=== PATIENT | male | born 1965 | race Caucasian/White ===

== ENCOUNTER → 2021-08-04 14:48 | Outpatient (BNVA) | payer MEDICARE, MEDICAID, SELFPAY | PROVIDERS: PCP Internal Medicine; Visit Provider Hospitalist | DX: J18.9 Pneumonia, unspecified organism (principal); J45.40 Moderate persistent asthma, uncomplicated; J40 Bronchitis, not specified as acute or chronic; R91.8 Other nonspecific abnormal finding of lung field; Z88.0 Allergy status to penicillin; Z79.899 Other long term (current) drug therapy | CPT/HCPCS: 99202 ==

== ENCOUNTER 2021-08-05 09:50 | Outpatient (REF) | payer MEDICARE, MEDICAID, SELFPAY ==
--- NOTE | 2021-08-05 | PFT_ITS ---
Forced vital capacity 86%, FEV1 81%. FEF 25-75 is 63% and MVV 74%. Post bronchodilator therapy, there is no significant change. Total lung capacity 87%. Residual volume 86%. Diffusion capacity is 93%. CONCLUSION: A very mild degree of obstructive airway disorder involving small airways. No response to bronchodilator therapy. Clinical correlation is recommended. MD IZABELA Sanches/MODL / [id number]
[2021-08-05 10:41] LABS: Basophils Percent Auto 0.6 % (0-2); Eosinophils Absolute Auto 0.1 X10*3/uL (0.0-0.4); Eosinophils Percent Auto 2.1 % (0-4); Hematocrit 49.8 % (42.0-52.0); Hemoglobin 17.2 g/dl (14.0-18.0); Imm Gran Abs Auto 0.01 X10*3/uL (0.00-0.03); Imm Gran Pct Auto 0.2 % (0.0-0.4); Lymphocytes Absolute Auto 1.2 X10*3/uL (1.2-4.9); Lymphocytes Percent Auto 22.1 % (20-40); MANUAL DIFF FLAG NO; Mean Corpuscular HGB Conc 34.5 g/dl (31.0-36.0); Mean Corpuscular Hemoglobin 32.2 pg (27.0-33.0); Mean Corpuscular Volume 93.3 fL (80.0-98.0); Mean Platelet Volume 8.8 fL (9.4-12.4); Monocytes Absolute Auto 0.4 X10*3/uL (0.1-1.2); Monocytes Percent Auto 6.6 % (2-11); Neutrophils Absolute Auto 3.6 x10*3/uL (2.0-8.3); Neutrophils Percent Auto 68.4 % (45-73); Platelet Count 218 X10*3/uL (160-400); Red Blood Count 5.34 X10*6/uL (4.60-5.80); Red Cell Distribution Width 13.3 % (11.0-16.0); White Blood Count 5.3 X10*3/uL (4.8-10.8)
[2021-08-05 11:22] LABS: Erythrocyte Sedimentation Rate 2 MM/HR (0-15)
[2021-08-06 11:32] LABS: IgA 69 mg/dL (47-310); IgG 1046 mg/dL (600-1640); IgM 132 mg/dL (50-300)
[2021-08-06 12:31] LABS: Immunoglobulin G Subclass 1 738 mg/dL (382-929); Immunoglobulin G Subclass 2 163 mg/dL (241-700); Immunoglobulin G Subclass 3 4 mg/dL (22-178); Immunoglobulin G Subclass 4 9.1 mg/dL (4-86); Immunoglobulin G Total 1092 mg/dL (600-1640)
[2021-08-06 13:41] LABS: Anti Nuclear Antibody Screen NEGATIVE (NEGATIVE)
[2021-08-07 13:26] LABS: Myeloperoxidase Antibody <1.0 AI; Proteinase 3 PR3 Antibodies <1.0 AI
[2021-08-07 23:38] LABS: Cyclic Citrullinated Peptide <16 UNITS
[2021-08-09 14:52] LABS: Angiotensin Converting Enzyme 24 U/L (9-67)
[2021-08-10 14:46] LABS: Asperg fumigatus Precip Abs NEGATIVE (NEGATIVE); Micropoly faeni Abs NEGATIVE (NEGATIVE); Pigeon serum Abs NEGATIVE (NEGATIVE); Saccharo pora viridis Abs NEGATIVE (NEGATIVE); Thermo candidus Abs NEGATIVE (NEGATIVE); Thermoa vulgaris #1 NEGATIVE (NEGATIVE)
== END 2021-08-05 09:51 | disposition home or self-care (01) ==
LOC: HO.RESP 09:50
PROVIDERS: PCP Internal Medicine; Visit Provider Hospitalist
DX: J18.9 Pneumonia, unspecified organism (principal); R91.8 Other nonspecific abnormal finding of lung field; J45.909 Unspecified asthma, uncomplicated
CPT/HCPCS: 36415; 82164; 82784; 82785; 85025; 85652; 86003; 86021; 86038; 86039; 86200; 86331; 86606; 86609; 94060; 94727; 94729

== ENCOUNTER 2021-08-25 09:10 | Outpatient (REF) | payer MEDICARE, MEDICAID, SELFPAY ==
[2021-08-26 04:46] LABS: SARS COV2 IgG Negative (Negative)
== END 2021-08-25 09:11 | disposition home or self-care (01) ==
LOC: HO.LAB 09:10
PROVIDERS: PCP Internal Medicine; Visit Provider Hospitalist
DX: J18.9 Pneumonia, unspecified organism (principal); J40 Bronchitis, not specified as acute or chronic; R06.00 Dyspnea, unspecified; D80.8 Other immunodeficiencies with predominantly antibody defects; R91.8 Other nonspecific abnormal finding of lung field; Z20.822 Contact with and (suspected) exposure to COVID-19
CPT/HCPCS: 36415; 86317; 86769; 99212

== ENCOUNTER 2021-09-23 16:18 | Outpatient (REF) | payer MEDICARE, MEDICAID, SELFPAY ==
--- NOTE | ~2021-09-23 | CT_ITS ---
EXAMINATION: CT CHEST WITHOUT CONTRAST CLINICAL INFORMATION: Pneumonia, unspecified organism. COMPARISON: None TECHNIQUE: Multidetector volumetric CT imaging of the chest was done. Axial MIP volume rendering provided. Sagittal and coronal reformatted images were obtained. This CT examination was performed using dose optimization techniques as appropriate, variously including the following: *Automated exposure control *Adjustment of mA and/or kV according to patient size (this includes techniques or standardized protocols for targeted exams where dose is matched to indication/reason for exam; i.e. extremities or head) *Use of iterative reconstruction technique DLP: 243 mGy-cm FINDINGS: LUNGS/PLEURA/AIRWAYS: Scattered groundglass infiltrates with upper lobe predominance are seen with scattered nodules. House Wirer Helper nodules are as follows: Right apex, posterior: 0.4 cm, image 12, series 4 Left upper lobe, anterolateral: 0.5 cm, image 21, series 4 Left upper lobe, central: 0.5 cm, image 24, series 4 Right middle lobe, lateral: 0.4 cm, image 38, series 4 Left lower lobe, lateral, subpleural: 0.6 cm, image 43, series 4 Right lung base: 0.7 cm, image 41, series 4 MEDIASTINUM: The visualized thyroid gland is unremarkable. The thoracic aorta is unremarkable. No coronary artery calcifications. No pericardial effusion. No mediastinal or hilar lymphadenopathy. UPPER ABDOMEN: Unremarkable. MUSCULOSKELETAL: No suspicious abnormality. SOFT TISSUES: Unremarkable. CT/CT chest wo con IMPRESSION: Pulmonary nodules measuring up to 0.7 cm as well as infiltrates are nonspecific. This could represent an infectious/inflammatory process however malignancy/metastatic disease cannot be excluded. Clinical correlation is recommended. A contrast-enhanced CT scan of the abdomen and pelvis is recommended to assess for possible malignant source. Following Fleischner Society guidelines, a repeat CT chest is recommended in 6 months.
== END 2021-09-23 16:19 | disposition home or self-care (01) ==
LOC: HO.CT 16:18
PROVIDERS: Visit Provider Hospitalist
DX: J18.9 Pneumonia, unspecified organism (principal); R91.8 Other nonspecific abnormal finding of lung field
CPT/HCPCS: 71250

== ENCOUNTER → 2021-10-21 08:29 | Outpatient (BNVA) | payer MEDICARE, MEDICAID, SELFPAY | PROVIDERS: PCP Internal Medicine; Visit Provider Hospitalist | DX: J18.9 Pneumonia, unspecified organism (principal); J40 Bronchitis, not specified as acute or chronic; R91.8 Other nonspecific abnormal finding of lung field; J45.40 Moderate persistent asthma, uncomplicated; R06.00 Dyspnea, unspecified; D80.8 Other immunodeficiencies with predominantly antibody defects | CPT/HCPCS: 99212 ==

== ENCOUNTER 2021-12-30 09:03 | Outpatient (REF) | payer MEDICARE, MEDICAID, SELFPAY ==
--- NOTE | ~2021-12-30 | CT_ITS ---
EXAMINATION: CT CHEST WITHOUT CONTRAST CLINICAL INFORMATION: Pneumonia. COMPARISON: CT chest 09/23/2021 TECHNIQUE: Multidetector volumetric CT imaging of the chest was done. Axial MIP volume rendering provided. Sagittal and coronal reformatted images were obtained. This CT examination was performed using dose optimization techniques as appropriate, variously including the following: *Automated exposure control *Adjustment of mA and/or kV according to patient size (this includes techniques or standardized protocols for targeted exams where dose is matched to indication/reason for exam; i.e. extremities or head) *Use of iterative reconstruction technique DLP: 241 mGy-cm. FINDINGS: WEBSITE PROGRAMMER: Well-inflated lungs. LUNGS: There is diffuse upper lobe groundglass opacities similar to previous study. There are multiple pulmonary nodules ranging from 3 mm 7 mm. The largest nodule measures 7 mm right lower lobe adjacent to the diaphragm,, 7 mm right lower lobe adjacent to major fissure axial image 409/7, 7 mm nodule right middle lobe axial image 335/7. Several of the pulmonary nodules are more solid appearing in density than previous exam. There is a groundglass density involving and more obvious in the superior segments of both lower lobes. No acute consolidation seen. MEDIASTINUM: The thyroid lobes are symmetrical. The central trachea and the bronchi widely patent. Heart size and the great vessels are normal caliber. There is no pericardial effusion. Central trachea and the bronchi are widely patent. PLEURA: There is no pleural effusion. No pleural mass or thickening. AXILLA: There are small shotty lymph nodes in the axilla. The chest wall is unremarkable. UPPER ABDOMEN: Visualized liver, spleen, pancreas and bilateral adrenal glands are unremarkable. OSSEOUS STRUCTURES: No lytic or sclerotic process seen. CT/CT chest wo con IMPRESSION: Diffuse groundglass opacity both upper lobes and superior segments lower lobe. There are multiple bilateral pulmonary nodules in the range of 2 to 7 mm. The pulmonary nodules are more solid appearing and more denser than previous study. No abnormal mediastinal or hilar lymph nodes seen. Differential diagnosis includes inflammatory, infectious, allergic or autoimmune disorder. Metastatic disease is considered less likely unless there are 2 different etiologies for groundglass density and nodules. Fleischner guidelines were followed.
== END 2021-12-30 09:04 | disposition home or self-care (01) ==
LOC: HO.CT 09:03
PROVIDERS: Visit Provider Hospitalist
DX: J18.9 Pneumonia, unspecified organism (principal)
CPT/HCPCS: 71250

== ENCOUNTER → 2022-01-14 09:15 | Outpatient (BNVA) | payer MEDICARE, MEDICAID, SELFPAY | PROVIDERS: Visit Provider Internal Medicine Endocrinology, Diabetes & Metabolism | DX: E29.1 Testicular hypofunction (principal) | CPT/HCPCS: 99202 ==

== ENCOUNTER 2022-02-23 08:53 | Outpatient (REF) | payer MEDICARE, MEDICAID, SELFPAY ==
[2022-02-23 10:55] LABS: Cortisol Random 11.1 ug/dL
[2022-02-24 23:21] LABS: Follicle Stimulating Hormone 6.7 mIU/mL (1.6-8.0); Lutenizing Hormone 6.3 mIU/mL (1.5-9.3); Prolactin 4.8 ng/mL (2.0-18.0)
[2022-02-27 23:03] LABS: Testosterone, Free 24.9 pg/mL (35.0-155.0); Testosterone, Total 142 ng/dL (250-1100)
== END 2022-02-23 08:54 | disposition home or self-care (01) ==
LOC: HO.LAB 08:53
PROVIDERS: Visit Provider Internal Medicine Endocrinology, Diabetes & Metabolism
DX: J18.9 Pneumonia, unspecified organism (principal); R91.8 Other nonspecific abnormal finding of lung field; J45.40 Moderate persistent asthma, uncomplicated; J40 Bronchitis, not specified as acute or chronic; R06.00 Dyspnea, unspecified; D80.8 Other immunodeficiencies with predominantly antibody defects; E29.1 Testicular hypofunction
CPT/HCPCS: 36415; 82533; 83001; 83002; 84146; 84402; 84403; 99212

== ENCOUNTER 2022-03-24 16:42 | Outpatient (REF) | payer MEDICARE, MEDICAID, SELFPAY ==
[2022-03-24 18:22] LABS: Ferritin 183 ng/mL (20-250)
== END 2022-03-24 16:43 | disposition home or self-care (01) ==
LOC: HO.LAB 16:42
PROVIDERS: Visit Provider Internal Medicine Endocrinology, Diabetes & Metabolism
DX: E29.1 Testicular hypofunction (principal)
CPT/HCPCS: 36415; 82728

== ENCOUNTER 2022-03-25 17:14 | Outpatient (REF) | payer MEDICARE, MEDICAID, SELFPAY ==
--- NOTE | ~2022-03-25 | MR_ITS ---
EXAMINATION: MR BRAIN WITHOUT AND WITH CONTRAST CLINICAL INFORMATION: Testicular hypofunction. COMPARISON: None. TECHNIQUE: Multiplanar, multisequential imaging was obtained without and with intravenous administration of contrast. Intravenous contrast: Gadavist 5 mL. FINDINGS: No abnormal focus of decreased differential enhancement is seen within the pituitary gland. The infundibulum is to the left of midline. The cavernous sinuses opacify symmetrically. The internal carotid artery flow voids are maintained. No suprasellar soft tissue abnormality is seen. No diffusion abnormalities are identified to suggest an acute or subacute infarct. The ventricles are normal in size. No mass effect or midline shift is seen. No brain parenchymal signal abnormalities are seen. No extra-axial fluid collections are noted. The brainstem and cerebellum are normal. There is no abnormal parenchymal or leptomeningeal enhancement. The craniovertebral junction, marrow signal, and midline structures are normal. The mastoid air cells and paranasal sinuses are fairly well aerated. There are multiple submucosal retention cysts along the roof of the nasopharynx. MR/MR head/brain wo/w con IMPRESSION: No pituitary abnormality identified. Normal MRI of the brain.
== END 2022-03-25 17:15 | disposition home or self-care (01) ==
LOC: HO.MRI 17:14
PROVIDERS: Visit Provider Internal Medicine Endocrinology, Diabetes & Metabolism
DX: E29.1 Testicular hypofunction (principal)
CPT/HCPCS: 70553; A9585

== ENCOUNTER 2022-04-13 09:44 | Outpatient (REF) | payer MEDICARE, MEDICAID, SELFPAY ==
[2022-04-13 11:37] LABS: Prostate Specific Antigen 1.41 ng/mL (<0.05-4.0)
== END 2022-04-13 09:45 | disposition home or self-care (01) ==
LOC: HO.LAB 09:44
PROVIDERS: Visit Provider Internal Medicine Endocrinology, Diabetes & Metabolism
DX: Z12.5 Encounter for screening for malignant neoplasm of prostate (principal); E29.1 Testicular hypofunction
CPT/HCPCS: 36415; 84153; 99212

== ENCOUNTER → 2022-06-07 09:32 | Outpatient (BNVA) | payer MEDICARE, MEDICAID, SELFPAY | PROVIDERS: Visit Provider Hospitalist | DX: J18.9 Pneumonia, unspecified organism (principal); R91.8 Other nonspecific abnormal finding of lung field; R06.00 Dyspnea, unspecified; J45.40 Moderate persistent asthma, uncomplicated; J40 Bronchitis, not specified as acute or chronic; D80.8 Other immunodeficiencies with predominantly antibody defects; G47.33 Obstructive sleep apnea (adult) (pediatric) | CPT/HCPCS: 99212 ==

== ENCOUNTER → 2022-06-17 13:56 | Outpatient (REF) | payer MEDICARE, MEDICAID, SELFPAY | LOC: HO.SL 13:56 | PROVIDERS: Visit Provider Hospitalist | DX: G47.33 Obstructive sleep apnea (adult) (pediatric) (principal) | CPT/HCPCS: 95806 ==

== ENCOUNTER → 2022-07-07 09:14 | Outpatient (BNVA) | payer MEDICARE, MEDICAID, SELFPAY | PROVIDERS: Visit Provider Hospitalist | DX: R06.00 Dyspnea, unspecified (principal); J45.40 Moderate persistent asthma, uncomplicated; J18.9 Pneumonia, unspecified organism; G47.33 Obstructive sleep apnea (adult) (pediatric); R91.8 Other nonspecific abnormal finding of lung field; D80.8 Other immunodeficiencies with predominantly antibody defects | CPT/HCPCS: 99212 ==

== ENCOUNTER 2022-08-03 09:42 | Outpatient (REF) | payer MEDICARE, MEDICAID, SELFPAY ==
[2022-08-03 11:44] LABS: Hematocrit 46.1 % (42.0-52.0); Hemoglobin 16.3 g/dl (14.0-18.0)
[2022-08-03 12:55] LABS: Free T4 (Free Thyroxine) 0.78 ng/dL (0.71-1.85); Thyroid Stimulating Hormone 1.73 uIU/mL (0.32-4.0)
[2022-08-12 21:28] LABS: Testosterone, Free 165.7 pg/mL (35.0-155.0); Testosterone, Total 630 ng/dL (250-1100)
== END 2022-08-03 09:43 | disposition home or self-care (01) ==
LOC: HO.LAB 09:42
PROVIDERS: Visit Provider Internal Medicine Endocrinology, Diabetes & Metabolism
DX: E29.1 Testicular hypofunction (principal); R53.83 Other fatigue; R68.82 Decreased libido; Z79.899 Other long term (current) drug therapy
CPT/HCPCS: 36415; 84402; 84403; 84439; 84443; 85014; 85018; 99212

== ENCOUNTER 2022-08-23 09:34 | Outpatient (REF) | payer MEDICARE, MEDICAID, SELFPAY ==
[2022-08-28 15:38] LABS: Testosterone, Free 122.6 pg/mL (35.0-155.0); Testosterone, Total 524 ng/dL (250-1100)
[2022-08-29 18:04] LABS: IGF-1 (Somatomedin C) 173 ng/mL (50-317); IGF-1 Z Score (Male) 0.5 SD (-2.0 - +2.0)
== END 2022-08-23 09:35 | disposition home or self-care (01) ==
LOC: HO.LAB 09:34
PROVIDERS: Visit Provider Internal Medicine Endocrinology, Diabetes & Metabolism
DX: E29.1 Testicular hypofunction (principal)
CPT/HCPCS: 36415; 84305; 84402; 84403

== ENCOUNTER 2022-08-30 11:54 | Outpatient (REF) | payer MEDICARE, MEDICAID, SELFPAY ==
[2022-08-30 14:19] LABS: Creatinine, mg/dL 157.55
[2022-08-30 15:29] LABS: Creatinine, 24Hr Urine 2.4 G/Day (1.0-2.0); Total Volume 24 Hour Urine 1550 mL
[2022-09-07 17:39] LABS: Cortisol Free, 24 Hr Urine 31.5 mcg/24 h (4.0-50.0); Total Volume, 24 Hr Urine 1550 mL
== END 2022-08-30 11:55 | disposition home or self-care (01) ==
LOC: HO.LNP 11:54
PROVIDERS: Visit Provider Internal Medicine Endocrinology, Diabetes & Metabolism
DX: E29.1 Testicular hypofunction (principal)
CPT/HCPCS: 82530; 82570

== ENCOUNTER → 2022-10-12 08:57 | Outpatient (BNVA) | payer MEDICARE, MEDICAID, SELFPAY | PROVIDERS: PCP Internal Medicine; Visit Provider Nurse Practitioner Family | DX: Z01.811 Encounter for preprocedural respiratory examination (principal); J45.40 Moderate persistent asthma, uncomplicated; G47.33 Obstructive sleep apnea (adult) (pediatric) | CPT/HCPCS: 99212 ==

== ENCOUNTER 2022-11-18 15:38 | Outpatient (REF) | payer MEDICARE, MEDICAID, SELFPAY ==
--- NOTE | ~2022-11-18 | CT_ITS ---
EXAMINATION: CT CHEST WITHOUT CONTRAST CLINICAL INFORMATION: Pulmonary nodules COMPARISON: Previous chest CT scanner most recent December 2021 going back to June 2021 TECHNIQUE: Multidetector volumetric CT imaging of the chest was done. Axial MIP volume rendering provided. Sagittal and coronal reformatted images were obtained. This CT examination was performed using dose optimization techniques as appropriate, variously including the following: *Automated exposure control *Adjustment of mA and/or kV according to patient size (this includes techniques or standardized protocols for targeted exams where dose is matched to indication/reason for exam; i.e. extremities or head) *Use of iterative reconstruction technique DLP: 257 mGy-cm FINDINGS: LUNGS: There are numerous scattered areas of groundglass attenuation seen throughout the lungs with upper lung predominance. Some appear associated with more central solid nodules, largest solid nodules measuring 5 to 6 mm. This does not appear appreciably changed from December 2021 exam. There are several separate pulmonary nodules that do not appear appreciably changed. Largest separate pulmonary nodules measure 5 mm in the right middle lobe axial image 346 series 5 and 6 mm in the left lower lobe axial image 405 series 5. These are unchanged. MEDIASTINUM: The visualized thyroid gland is normal. There is shotty mediastinal lymphadenopathy that appears unchanged. No enlarged lymph nodes. Normal heart size. No pericardial effusion. CORONARY ARTERY CALCIFICATION: None visualized on this study. PLEURA: There is no pleural effusion. No pleural mass or thickening. AXILLA: No lymphadenopathy. UPPER ABDOMEN: The spleen is not completely imaged but appears prominent. OSSEOUS STRUCTURES: Degenerative changes of the spine. CT/CT chest wo IV con IMPRESSION: Stable patchy areas of groundglass attenuation and nodules compared to previous exams going back as far as June 2021. Infectious or inflammatory process is favored. Fleischner guidelines were followed.
== END 2022-11-18 15:39 | disposition home or self-care (01) ==
LOC: HO.CT 15:38
PROVIDERS: PCP Internal Medicine; Visit Provider Hospitalist
DX: R91.8 Other nonspecific abnormal finding of lung field (principal)
CPT/HCPCS: 71250

== ENCOUNTER → 2022-12-03 08:44 | Outpatient (BNVA) | payer MEDICARE, MEDICAID, SELFPAY | PROVIDERS: PCP Internal Medicine; Visit Provider Internal Medicine Endocrinology, Diabetes & Metabolism | DX: E29.1 Testicular hypofunction (principal) | CPT/HCPCS: 99212 ==

== ENCOUNTER 2022-12-15 08:26 | Outpatient (AMB) | payer MEDICARE, MEDICAID, SELFPAY ==
--- NOTE | 2022-12-15 08:28 | A.OFFVIS_ITS ---
Intake VS Expanded 12/15/22 08:30 12/27/22 21:28 Height 6 ft 6 ft Weight 273 lb 2.444 oz 273 lb BMI 37.0 37.0 Intake Visit Reasons: Obesity Allergies Penicillins Allergy (Severe, Verified 12/03/22 08:48) Itching HPI Nutrition Presentation Details Pt presents for MNT for obesity. The Pt was referred by Ramos Ortiz NP from Pulmonology dept. Pt reports he has tried various weight loss diets in the past with success , currently having challenges with consistent diet modifications. food frequency questionnaire noon: salad with tuna and light dressing dinner: protein (chicken/poultry), pasta/potato/pasta /vegetables or salad , water bedtime fruits 7-9 pm apple/fruits muscle milk Pt reports taking a complex vitamin b12 physical activity: daily life activity (elliptical 20-25 min 3 -4 times/wk ) ETOH; denies Smoking : denies eating out : 2-3 x/wk fried foods : 2-3 x/wk MQL-Htaufgi-Nf.Jeor Equation Height 6 ft Weight 273 lb Resting Metabolic Rate 2109.55 Calculated Activity Level Sedentary Calories Needed to Maintain Weight 2531.46 Diagnosis Nutrition problem #1 excessive energy intake As related to (etiology) #1 diagnosis As evidenced by (sign/symptom) #1 high BMI (37.0 on 12/15/22) Monitoring/Goals Nutrition problem monitoring weight Nutrition goal/outcome wt loss 5lbs in 2 months Learning/Education Readiness to learn fair Stages of change pre-contemplation Educational materials provided Yes (meal planning) Most Recent Diabetes Results: No Data to Display [facility] Medical History (Updated 12/03/22 @ 13:22 by Michael Mix MD) Asthma Bronchitis Dyspnea Hypogonadism in male Hypogonadism in male Obesity JEANETTE (obstructive sleep apnea) Pneumonitis Pulmonary nodules 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 Surgical History History of knee replacement History of rotator cuff surgery History of surgery History of tracheostomy Family History Mother No known health problems Father High blood pressure AD (Alzheimer's disease) Social History Alcohol intake: never Patient Tobacco Use Status: Never used Tobacco Assessment & Plan Assessment & Plan (1) Obesity, Class II, BMI 35-39.9: Code(s): E66.9 - Obesity, unspecified Plan: used wt: 124 kg Est kcal needs as per MSJ: 2500 (40% carb, 30% protein/fat) Est fluid needs as per 25-30 ml/d: 3100 Est prot per day as per 1 g/kg bw: 124 Recommend fiber intake : 8-10 g per day and gradually increase to 25-28 g per day for women and 35-38 g for men or as tolerated Recommend sodium intake per day : less than 2000 mg Educated patient on: ( R = reviewed V = verbalizes understanding N/R = needs review N/A = not applicable * Food sources of carbohydrate, adequate serving sizes and its role in various health conditions: R * Differences between complex carbohydrates a simple carbohydrates, role of fiber in diet: R * Differences between types of fats and role in diet (mono on saturated fat fatty acids, saturated fatty acids, trans fats): R basic low fat concepts * Food sources of sodium in salt and healthy modifications for heart health in kidney health: NR * Healthy plate method concept: R * Physical activity: Benefits a precaution: R V * mindful eating strategies : R Medications: Discontinued testosterone cypionate Discontinued Reason: Doctor's Order 100 mg (0.5 mL) IM QWEEK 10 mL 4RF Patient Instructions: Work on reducing fat intake by reducing frequency of fried food intake practice mindful eating Coding Level of Care Code Nutr Indiv Intake (10910) Diagnoses Obesity, Class II, BMI 35-39.9 E66.9 Time Spent (min) 30
[2022-12-15 08:30] VITALS: BMI 37.0
[2022-12-27 21:28] VITALS: BMI 37.0
== END 2022-12-15 09:30 | disposition home or self-care (01) ==
PROVIDERS: PCP Internal Medicine; Referring Provider Internal Medicine Endocrinology, Diabetes & Metabolism; Visit Provider Dietitian, Registered
DX: E66.9 Obesity, unspecified (principal)

== ENCOUNTER → 2022-12-15 08:26 | Outpatient (BNVA) | payer MEDICARE, MEDICAID, SELFPAY | PROVIDERS: Visit Provider Dietitian, Registered | DX: E66.9 Obesity, unspecified (principal); Z68.37 Body mass index [BMI] 37.0-37.9, adult | CPT/HCPCS: 97802 ==

== ENCOUNTER 2023-01-05 08:50 | Outpatient (REF) | payer MEDICARE, MEDICAID, SELFPAY ==
[2023-01-05 09:59] LABS: MANUAL DIFF FLAG NO
[2023-01-05 10:47] LABS: Basophils Percent Auto 0.8 % (0-2); Eosinophils Absolute Auto 0.1 X10*3/uL (0.0-0.4); Hematocrit 49.4 % (42.0-52.0); Hemoglobin 16.7 g/dl (14.0-18.0); Imm Gran Abs Auto 0.01 X10*3/uL (0.00-0.03); Imm Gran Pct Auto 0.2 % (0.0-0.4); Lymphocytes Absolute Auto 1.2 X10*3/uL (1.2-4.9); Lymphocytes Percent Auto 24.5 % (20-40); Mean Corpuscular HGB Conc 33.8 g/dl (31.0-36.0); Mean Corpuscular Hemoglobin 32.4 pg (27.0-33.0); Mean Corpuscular Volume 95.9 fL (80.0-98.0); Mean Platelet Volume 9.3 fL (9.4-12.4); Monocytes Absolute Auto 0.4 X10*3/uL (0.1-1.2); Monocytes Percent Auto 7.8 % (2-11); Neutrophils Absolute Auto 3.2 x10*3/uL (2.0-8.3); Neutrophils Percent Auto 64.7 % (45-73); Platelet Count 221 X10*3/uL (160-400); Red Blood Count 5.15 X10*6/uL (4.60-5.80); Red Cell Distribution Width 13.8 % (11.0-16.0); White Blood Count 4.9 X10*3/uL (4.8-10.8)
[2023-01-05 11:32] LABS: Erythrocyte Sedimentation Rate 4 MM/HR (0-15)
[2023-01-11 10:48] LABS: Angiotensin Converting Enzyme 24.7 U/L (9-67)
[2023-01-20 17:29] LABS: Asperg fumigatus Precip Abs NEGATIVE (NEGATIVE); Micropoly faeni Abs NEGATIVE (NEGATIVE); Pigeon serum Abs NEGATIVE (NEGATIVE); Saccharo pora viridis Abs NEGATIVE (NEGATIVE); Thermo candidus Abs NEGATIVE (NEGATIVE); Thermoa vulgaris #1 NEGATIVE (NEGATIVE)
== END 2023-01-05 08:51 | disposition home or self-care (01) ==
LOC: HO.LAB 08:50
PROVIDERS: PCP Internal Medicine; Visit Provider Hospitalist
DX: J18.9 Pneumonia, unspecified organism (principal); R91.8 Other nonspecific abnormal finding of lung field; G47.33 Obstructive sleep apnea (adult) (pediatric); J31.0 Chronic rhinitis; J45.40 Moderate persistent asthma, uncomplicated; D80.8 Other immunodeficiencies with predominantly antibody defects; Z23 Encounter for immunization; Z79.899 Other long term (current) drug therapy
CPT/HCPCS: 36415; 82164; 85025; 85652; 86331; 86606; 86609; 90471; 90677; 99212

== ENCOUNTER 2023-01-05 08:50 | Outpatient (AMB) | payer MEDICARE, MEDICAID, SELFPAY ==
[2023-01-05 09:04] VITALS: PULSE 74; O2SAT 97; BMI 34.6
--- NOTE | 2023-01-05 09:04 | MHC.OFFVIS ---
Intake Vital Signs 01/05/23 09:04 Height 6 ft Weight 255 lb BMI 34.6 Pulse 74 Pulse Source Pulse Oximeter Pulse Oximetry (%) 97 Oxygen Delivery Method Room Air Intake Visit Reasons: Dyspnea Manual Writer Required: No Allergies Penicillins Allergy (Severe, Verified 01/05/23 09:05) Itching HPI HPI Comments History of Present Illness Details The patient is a 57-year-old gentleman with a known history of asthma in addition to severe allergies. Apparently the patient when he was 8 years old was [place] the [place] and developed angioedema and respiratory distress requiring tracheostomy. Subsequently after that he did follow closely with Allergy and immunology. Patient also had a close relationship with primary care doctor. Patient did have recurrent infections and pneumonias which required usually antibiotics and prednisone. The patient also has severe back issues back disease and has needed cortisol shots. 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 Currently he is getting hormonal therapy. He is currently working with Endocrinology at this time. More recently during the winter just before the patient started getting sick again. The patient was given a brief course of antibiotics without any significant improvement. Apparently at that time he did have a chest x-ray that was considered abnormal per the patient although I do not have that report. He subsequently followed up with another x-ray again abnormal. More recent the patient did undergo a CT scan of the chest in June 2021. He did bring a copy of that and I was able to review of myself and also reviewed with the patient. The CT scan is very revealing. He has significant amount of areas of ground-glass opacities bilaterally predominantly in the upper lung zones associated with pulmonary nodules which appear to be to some degree calcified and also associated with the central part of the ground-glass densities. The patient also has pulmonary nodules in a perilymphatic distribution bringing up the question of inflammatory conditions such as sarcoidosis. The nodules are intermediate size and they are bilaterally. 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 But, after his back injuries he has not been able to work for many years. He denies exposure to any birds or any farm so. Denies any exposure to any mold. The patient is a lifelong nonsmoker. The patient has been using short-acting beta agonists was partial improvement of symptoms. He does feel this burning sensation when he breathes in and is very uncomfortable. The patient is also having issues with his adrenal axis. Since he has been on prednisone his workup has been placed on hold. Therefore, I will also try to hold off on any cortical steroids to prevent any further follow-up or workup for his endocrinology issues. at this point I do not see that that to conditions are associated. 08/25/2021 the patient is here for a pulmonary follow-up visit. Overall he is feeling better on the Wixela. He has not required any prednisone. He did start some by oxygen had in his house for sinusitis symptoms. He still complaining of burning sensation in the chest area and also gets a burning sensation in the sinus areas as well. He does not believe that this is reflux related. We did review all the blood work that we did. On ruled out any vasculitis or connective tissue conditions. The only significant finding was that he is allergic to cats and dogs. He currently has a cat in the house. His allergies to cat is moderate to severe. In addition to that the patient did have a low IgG subclass 2 and 3. The total level was normal but this brings up the possibility of a specific immunodeficiency syndrome. Therefore, we will check his pneumococcal 23 Valiant titers in addition to also checking his SARS-CoV-2 antibodies to see if he was exposed to COVID-19. He is concerned that the findings on the CT scan was related to potential COVID 19 although his PCR testing was negative he does believe that there is a high risk for this. Therefore will check his antibodies at this time. In the meantime in view of the patient's sinus issues and immunodeficiency issues it will be reasonable to treat the patient with azithromycin 3 times a week for prophylactic antibiotics and also to help him as an anti-inflammatory. Will try this for now as we will repeat his CT scan in 2 months to see if there is improvement of the ground-glass opacities. If the symptoms do not improve and/or the CT scan does not improve then will consider undergoing a diagnostic intervention such as bronchoscopy or biopsy. The patient also will keep the CT away from his bedroom will uses allergy medication. we also reviewed his pulmonary function studies which is reassuring. No obstructive nor restrictive ventilatory defects and his diffusing capacity was within normal limits. Although the patient does have evidence of small airways disease consistent with the diagnosis of asthma at this time. 10/21/2021 the patient is here for a pulmonary follow-up visit. Overall the patient has been feeling much better. His chest tightness wheezing coughing has been improving. He continues uses Wixela. Wixela appears to be helping. However, sometimes he gets any irritation to the tongue and needs to stop it. Explained to him is likely the powder component. I will switch him over to inhaler such as Symbicort that he can use with a spacer to better effectively administer the medication to the lungs and minimize upper respiratory adverse effects. In the meantime we did review his CT scan of the chest. I personally reviewed with him. The patient still has areas of ground-glass opacities and nodular densities as well as some lymphadenopathy. The distribution still is consistent more with a hypersensitivity pneumonitis versus sarcoidosis. At in to review the older films. But, he continues to be interval improvement in the ground-glass opacities it is not as dense. Therefore I will try to compare this most recent CT scan to his previous to make sure that there is indeed improvement. With suspicion that there is improvement will follow-up with a CT scan in 3-4 months. However, if the CT scan does not show any significant improvement then I will talk to her about considering a diagnostic interventions such as biopsy. Currently the patient does feel better and for that reason will continue following. His hypersensitivity panel was indeed negative for any evidence of any sensitivities although is a very limited study. The process of bilateral and is not consistent with a malignant process more consistent with an inflammatory process. 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 The patient also pains. 02/23/2022 the patient is here for a pulmonary follow-up visit. He complains of increased chest tightness and burning sensation. These the symptoms he had initially when he was found to have the areas of pneumonitis and pulmonary nodules. He also has been working with the sap ppm consultant regarding his so sometimes systems tremors no the bothers him hypogonadism. The patient did have a repeat CT scan of the chest with personally viewed in the office with him. The ground-glass areas appeared to be about the same although the pulmonary nodule components appear to be more solid more significant. At this point explained to the patient that he has we tried multiple inhalers and medications. The patient really needs to have a biopsy done to further delineate this process. We talked about surgical biopsies being the best high yield way to go about it. However he is concerned about having surgery. He is willing to do a bronchoscopy. He understands that the yield is not going to be 100%. Although we can not rule out infectious processes also do some transbronchial biopsies to try 06/07/2022 the patient is here for a pulmonary follow-up visit. He feels very tired lately. He has significant daytime drowsiness specially since he came off the testosterone. His [place] score is elevated 12/24. The patient does have snoring. The patient will need a sleep study at this time. Will set him up with a home sleep study. In the meantime will going to requested urgently in order for him to be potentially placed back on his testosterone therapy that he has been on for many years. The patient ultimately opted not having a diagnostic biopsy for his abnormal findings in the CT scan. The patient did have a CT scan back over the summer demonstrating persistent ground-glass opacities with some nodular component. Appears to be upper lung zone predominant it is suggestive of a hypersensitivity reaction. No significant scarring that I could appreciate. The last couple days the patient started developing worsening chest tightness and coughing. He is using his inhalers. The patient will benefit from a prednisone taper this time. Although will put him on a lower dose for longer duration. Will follow-up in a few weeks after his sleep study. 07/07/2022 the patient is here for a pulmonary follow-up visit. The patient overall is doing well. Continues to have some daytime drowsiness his [place] score is elevated it over 24. He did have a home sleep study was which is reassuring with about 4.9 episodes now which is considered normal. The patient understands that when he lays on his back is usually worse. If he lays on his side he does much better. He has a hard time lying on his back anyway because of his back discomfort. The patient does not qualify for CPAP at this time. He did start the testosterone therapy which is very happy about. He still continues to have significant nasal congestion postnasal drip. 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 He has been taking Afrin since he was a teenager. He uses it between 2 to 3 times a day. He understands that with super imposed congestion when he is not using it it is hard to provide any therapy for. He needs to ultimately stop the Afrin and work with the adverse effects. Will go ahead and place him on Flonase and also ipratropium to try to help minimize his sat side effects from the Afrin at this point. He is also taking [id number] Sudafed which will help as well. From a respiratory status the patient is doing well. He does have a cough but is mainly from postnasal drip. He does have the nodular densities in the ground-glass opacities which we talked about before. He was reluctant to have any surgical biopsies or bronchoscopic biopsies so therefore which is monitoring closely. His next CT scans cleaning 6 months with follow-up. 01/05/2023 the patient is here for pulmonary follow-up visit. Overall his breathing is much better. He has been using the Symbicort. The patient feels like he is less short of breath. Less coughing. He did have a CT scan of the chest in October which we reviewed. It appears that he still has a ground-glass opacities primarily in the upper lung distribution. Also has pulmonary nodules. Again we talked about the differential being inflammatory process. Overlying recheck his hypersensitivity panel and his Charlie level. The patient does not want to undergo a biopsy although is the only way knowing exactly with this processes. He is not on any prednisone although he is on the inhaled steroid. He is going to continue for now. Will go ahead and repeat the CT scan in a year's time. If the patient has any worsening symptoms he is to call the office because we can not consider biopsy or reimaging at that point. 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 Surgical History History of knee replacement History of rotator cuff surgery History of surgery History of tracheostomy Family History Mother No known health problems Father High blood pressure AD (Alzheimer's disease) Social History Alcohol intake: never Patient Tobacco Use Status: Never used Tobacco Review of Systems Const Reports fatigue and Reports weight gain Eyes Denies change in vision ENT Denies change in voice, Reports nasal congestion, Reports nasal discharge and Reports post nasal drip Card Denies chest pain and Reports dyspnea on exertion Resp Denies chest congestion, Reports cough, Reports dyspnea on exertion and Reports wheezing GI Denies nausea and Denies vomiting Musc Reports back pain Skin/Breast Denies rash Neuro Reports radicular pain and Reports paresthesias Endo Reports fatigue Rosalio/Lymph Denies easy bleeding, Denies easy bruising and Denies lymphadenopathy Aller/Immun Reports wheezing Physical Exam Vital Signs: Last Vital Signs Pulse 74 01/05/23 09:04 Pulse Ox 97 01/05/23 09:04 Oxygen Delivery Method Room Air 01/05/23 09:04 BMI result Body Mass Index 34.6 Const General: alert Neck Neck: Yes normal visual inspection, Yes full ROM and Yes no lymphadenopathy Chest Chest palpation & inspection: normal inspection of the chest Resp Auscultation: no wheezes and diminished lung sounds Cardio Rate: regular rate Rhythm: regular rhythm Heart sounds: S1 normal heart sound present and S2 normal heart sound present GI Palpation (GI): Soft to palpation and nontender Auscultation: normal bowel sounds Skin General skin exam: rashes and/or lesions noted Extrem General: Yes no clubbing, cyanosis or edema Immunizations pneumoc 20-miguel conj-dip cr(PF) Performing Provider: Jm Collins MD Administered by: Rosalind Westfall LPN on 01/05/23 09:37 Dose Route Admin Location Lot Number Expiration Date NDC Clinical Research Physician 0.5 mL IM Left Deltoid [id number] 03/29/24 [id number] [email or web address] VIS Given Date VIS Provided VIS Publication Date 01/05/23 Single Vaccine 22 Eligibility Eligibility Date Funding Source Not VFC Eligible 01/05/23 Private Results Reviewed Results Reviewed: [address] [address] [address] Scan Report Signed Patient: John Scott MR#: [id number] : 1965 Acct:[id number] Age/Sex: 57 / M ADM Date: 11/18/22 Loc: [facility].CT Attending Dr: Jm Collins MD Ordering Physician: Jm Collins MD Date of Service: 11/18/22 Procedure(s): CT chest wo IV con Accession Number(s): [id number] cc: Jm Collins MD~ EXAMINATION: CT CHEST WITHOUT CONTRAST CLINICAL INFORMATION: Pulmonary nodules? COMPARISON: Previous chest CT scanner most recent December 2021 going back to June 2021 TECHNIQUE: Multidetector volumetric CT imaging of the chest was done. Axial MIP volume rendering provided. Sagittal and coronal reformatted images were obtained.? This CT examination was performed using dose optimization techniques as appropriate, variously including the following: *Automated exposure control *Adjustment of mA and/or kV according to patient size (this includes techniques or standardized protocols for targeted exams where dose is matched to indication/reason for exam; i.e. extremities or head) *Use of iterative reconstruction technique DLP: 257 mGy-cm FINDINGS: LUNGS: There are numerous scattered areas of groundglass attenuation seen throughout the lungs with upper lung predominance. Some appear associated with more central solid nodules, largest solid nodules measuring 5 to 6 mm. This does not appear appreciably changed from December 2021 exam. There are several separate pulmonary nodules that do not appear appreciably changed. Largest separate pulmonary nodules measure 5 mm in the right middle lobe axial image 346 series 5 and 6 mm in the left lower lobe axial image 405 series 5. These are unchanged.? MEDIASTINUM: The visualized thyroid gland is normal. There is shotty mediastinal lymphadenopathy that appears unchanged. No enlarged lymph nodes. Normal heart size. No pericardial effusion. CORONARY ARTERY CALCIFICATION: None visualized on this study. PLEURA: There is no pleural effusion. No pleural mass or thickening.? AXILLA: No lymphadenopathy.? UPPER ABDOMEN: The spleen is not completely imaged but appears prominent.? OSSEOUS STRUCTURES: Degenerative changes of the spine.? CT/CT chest wo IV con IMPRESSION: Stable patchy areas of groundglass attenuation and nodules compared to previous exams going back as far as June 2021. Infectious or inflammatory process is favored. ? Fleischner guidelines were followed. Dictated By: Rosina Orr MD Signed By: <Electronically signed by Rosina Orr MD in OV> 11/24/22 1551 DD/ 1558 TD/TT:? Clinical Nursing Assistant: DONNY Assessment & Plan Assessment & Plan (1) Pneumonitis: Comment: very suspicious for hypersensitive pneumonitis versus sarcoidosis. It is upper lung zone predominance associated with nodular densities in a bronchovascular distribution. His ANCA studies were negative for any vasculitides. 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: Code(s): D80.8 - Other immunodeficiencies with predominantly antibody defects (6) JEANETTE (obstructive sleep apnea): Comment: minimal AHI on home sleep study Code(s): G47.33 - Obstructive sleep apnea (adult) (pediatric) Plan positional therapy for sleep ipratropium nasal spray fluticasone nasal spray No Afrin continue Symbicort KAUSHAL as needed CT chest in 12 months Bloodwork F/U 6 months Orders: Orders Angiotensin Converting Enzyme Today J18.9 - Pneumonia, unspecified organism Complete Blood Count Auto Diff Today J18.9 - Pneumonia, unspecified organism Erythrocyte Sedimentation Rate Today J18.9 - Pneumonia, unspecified organism Hypersensitive Pneumonitis Prf Today J18.9 - Pneumonia, unspecified organism, R91.8 - Other nonspecific abnormal finding of lung field Pneumococcal 20 Immunization Today Z23 - Encounter for immunization Coding Level of Care Code Est Pt Level 4 (39127) Diagnoses Pneumonitis J18.9 Pulmonary nodules R91.8 Asthma J45.40 Asthma complication type: uncomplicated Asthma persistence: persistent Asthma severity: moderate Dyspnea R06.00 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
== END 2023-01-05 09:34 | disposition home or self-care (01) ==
PROVIDERS: PCP Internal Medicine; Visit Provider Hospitalist
DX: J18.9 Pneumonia, unspecified organism (principal); R91.8 Other nonspecific abnormal finding of lung field; J45.40 Moderate persistent asthma, uncomplicated; R06.00 Dyspnea, unspecified; D80.8 Other immunodeficiencies with predominantly antibody defects; G47.33 Obstructive sleep apnea (adult) (pediatric)
CPT/HCPCS: 99214

== ENCOUNTER 2023-02-11 10:12 | Outpatient (AMB) | payer MEDICARE, MEDICAID, SELFPAY ==
--- NOTE | 2023-02-11 10:14 | MHC.OFFVIS ---
Intake Vital Signs 02/11/23 10:16 Height 6 ft Weight 250 lb BMI 33.9 BP 118/60 Blood Pressure Location Lt brachial Position Sitting Pulse 83 Pulse Source Pulse Oximeter Pulse Oximetry (%) 97 Oxygen Delivery Method Room Air Intake Visit Reasons: chest congestion Celery Tier Required: No Allergies Penicillins Allergy (Severe, Verified 02/11/23 10:18) Itching HPI HPI Comments History of Present Illness Details The patient is a 57-year-old gentleman with a known history of asthma in addition to severe allergies. Apparently the patient when he was 8 years old was at the zoo and developed angioedema and respiratory distress requiring tracheostomy. Subsequently after that he did follow closely with Allergy and immunology. Patient also had a close relationship with primary care doctor. Patient did have recurrent infections and pneumonias which required usually antibiotics and prednisone. The patient also has severe back issues back disease and has needed cortisol shots. 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 Currently he is getting hormonal therapy. He is currently working with Endocrinology at this time. More recently during the winter just before the patient started getting sick again. The patient was given a brief course of antibiotics without any significant improvement. Apparently at that time he did have a chest x-ray that was considered abnormal per the patient although I do not have that report. He subsequently followed up with another x-ray again abnormal. More recent the patient did undergo a CT scan of the chest in June 2021. He did bring a copy of that and I was able to review of myself and also reviewed with the patient. The CT scan is very revealing. He has significant amount of areas of ground-glass opacities bilaterally predominantly in the upper lung zones associated with pulmonary nodules which appear to be to some degree calcified and also associated with the central part of the ground-glass densities. The patient also has pulmonary nodules in a perilymphatic distribution bringing up the question of inflammatory conditions such as sarcoidosis. The nodules are intermediate size and they are bilaterally. 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 But, after his back injuries he has not been able to work for many years. He denies exposure to any birds or any farm so. Denies any exposure to any mold. The patient is a lifelong nonsmoker. The patient has been using short-acting beta agonists was partial improvement of symptoms. He does feel this burning sensation when he breathes in and is very uncomfortable. The patient is also having issues with his adrenal axis. Since he has been on prednisone his workup has been placed on hold. Therefore, I will also try to hold off on any cortical steroids to prevent any further follow-up or workup for his endocrinology issues. at this point I do not see that that to conditions are associated. 08/25/2021 the patient is here for a pulmonary follow-up visit. Overall he is feeling better on the Wixela. He has not required any prednisone. He did start some by oxygen had in his house for sinusitis symptoms. He still complaining of burning sensation in the chest area and also gets a burning sensation in the sinus areas as well. He does not believe that this is reflux related. We did review all the blood work that we did. On ruled out any vasculitis or connective tissue conditions. The only significant finding was that he is allergic to cats and dogs. He currently has a cat in the house. His allergies to cat is moderate to severe. In addition to that the patient did have a low IgG subclass 2 and 3. The total level was normal but this brings up the possibility of a specific immunodeficiency syndrome. Therefore, we will check his pneumococcal 23 Valiant titers in addition to also checking his SARS-CoV-2 antibodies to see if he was exposed to COVID-19. He is concerned that the findings on the CT scan was related to potential COVID 19 although his PCR testing was negative he does believe that there is a high risk for this. Therefore will check his antibodies at this time. In the meantime in view of the patient's sinus issues and immunodeficiency issues it will be reasonable to treat the patient with azithromycin 3 times a week for prophylactic antibiotics and also to help him as an anti-inflammatory. Will try this for now as we will repeat his CT scan in 2 months to see if there is improvement of the ground-glass opacities. If the symptoms do not improve and/or the CT scan does not improve then will consider undergoing a diagnostic intervention such as bronchoscopy or biopsy. The patient also will keep the CT away from his bedroom will uses allergy medication. we also reviewed his pulmonary function studies which is reassuring. No obstructive nor restrictive ventilatory defects and his diffusing capacity was within normal limits. Although the patient does have evidence of small airways disease consistent with the diagnosis of asthma at this time. 10/21/2021 the patient is here for a pulmonary follow-up visit. Overall the patient has been feeling much better. His chest tightness wheezing coughing has been improving. He continues uses Wixela. Wixela appears to be helping. However, sometimes he gets any irritation to the tongue and needs to stop it. Explained to him is likely the powder component. I will switch him over to inhaler such as Symbicort that he can use with a spacer to better effectively administer the medication to the lungs and minimize upper respiratory adverse effects. In the meantime we did review his CT scan of the chest. I personally reviewed with him. The patient still has areas of ground-glass opacities and nodular densities as well as some lymphadenopathy. The distribution still is consistent more with a hypersensitivity pneumonitis versus sarcoidosis. At in to review the older films. But, he continues to be interval improvement in the ground-glass opacities it is not as dense. Therefore I will try to compare this most recent CT scan to his previous to make sure that there is indeed improvement. With suspicion that there is improvement will follow-up with a CT scan in 3-4 months. However, if the CT scan does not show any significant improvement then I will talk to her about considering a diagnostic interventions such as biopsy. Currently the patient does feel better and for that reason will continue following. His hypersensitivity panel was indeed negative for any evidence of any sensitivities although is a very limited study. The process of bilateral and is not consistent with a malignant process more consistent with an inflammatory process. 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 The patient also pains. 02/23/2022 the patient is here for a pulmonary follow-up visit. He complains of increased chest tightness and burning sensation. These the symptoms he had initially when he was found to have the areas of pneumonitis and pulmonary nodules. He also has been working with the non destructive testing inspector regarding his so sometimes systems tremors no the bothers him hypogonadism. The patient did have a repeat CT scan of the chest with personally viewed in the office with him. The ground-glass areas appeared to be about the same although the pulmonary nodule components appear to be more solid more significant. At this point explained to the patient that he has we tried multiple inhalers and medications. The patient really needs to have a biopsy done to further delineate this process. We talked about surgical biopsies being the best high yield way to go about it. However he is concerned about having surgery. He is willing to do a bronchoscopy. He understands that the yield is not going to be 100%. Although we can not rule out infectious processes also do some transbronchial biopsies to try 06/07/2022 the patient is here for a pulmonary follow-up visit. He feels very tired lately. He has significant daytime drowsiness specially since he came off the testosterone. His [place] score is elevated 12/24. The patient does have snoring. The patient will need a sleep study at this time. Will set him up with a home sleep study. In the meantime will going to requested urgently in order for him to be potentially placed back on his testosterone therapy that he has been on for many years. The patient ultimately opted not having a diagnostic biopsy for his abnormal findings in the CT scan. The patient did have a CT scan back over the summer demonstrating persistent ground-glass opacities with some nodular component. Appears to be upper lung zone predominant it is suggestive of a hypersensitivity reaction. No significant scarring that I could appreciate. The last couple days the patient started developing worsening chest tightness and coughing. He is using his inhalers. The patient will benefit from a prednisone taper this time. Although will put him on a lower dose for longer duration. Will follow-up in a few weeks after his sleep study. 07/07/2022 the patient is here for a pulmonary follow-up visit. The patient overall is doing well. Continues to have some daytime drowsiness his [place] score is elevated it over 24. He did have a home sleep study was which is reassuring with about 4.9 episodes now which is considered normal. The patient understands that when he lays on his back is usually worse. If he lays on his side he does much better. He has a hard time lying on his back anyway because of his back discomfort. The patient does not qualify for CPAP at this time. He did start the testosterone therapy which is very happy about. He still continues to have significant nasal congestion postnasal drip. 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 He has been taking Afrin since he was a teenager. He uses it between 2 to 3 times a day. He understands that with super imposed congestion when he is not using it it is hard to provide any therapy for. He needs to ultimately stop the Afrin and work with the adverse effects. Will go ahead and place him on Flonase and also ipratropium to try to help minimize his sat side effects from the Afrin at this point. He is also taking [id number] Sudafed which will help as well. From a respiratory status the patient is doing well. He does have a cough but is mainly from postnasal drip. He does have the nodular densities in the ground-glass opacities which we talked about before. He was reluctant to have any surgical biopsies or bronchoscopic biopsies so therefore which is monitoring closely. His next CT scans cleaning 6 months with follow-up. 01/05/2023 the patient is here for pulmonary follow-up visit. Overall his breathing is much better. He has been using the Symbicort. The patient feels like he is less short of breath. Less coughing. He did have a CT scan of the chest in October which we reviewed. It appears that he still has a ground-glass opacities primarily in the upper lung distribution. Also has pulmonary nodules. Again we talked about the differential being inflammatory process. Overlying recheck his hypersensitivity panel and his Charlie level. The patient does not want to undergo a biopsy although is the only way knowing exactly with this processes. He is not on any prednisone although he is on the inhaled steroid. He is going to continue for now. Will go ahead and repeat the CT scan in a year's time. If the patient has any worsening symptoms he is to call the office because we can not consider biopsy or reimaging at that point. 02/11/2023 the patient is here for sick visit. Several days ago he started developing at earache in addition to nasal congestion. He was having worsening cough. Patient denies any fevers or chills. He did take pseudoephedrine with good response. He feels like the cough is better. Still having the neck discomfort and also the year 8. His exam demonstrates some degree of otitis externa and also also inflammation of the tympanic membrane on the right side. Continue current respiratory therapy. He was an ankle orthopedic surgery scheduled for the end og the month. 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 Hypogonadism in male Dyspnea Bronchitis Asthma Pulmonary nodules Pneumonitis Surgical History History of tracheostomy History of surgery History of rotator cuff surgery History of knee replacement Family History Mother No known health problems Father High blood pressure AD (Alzheimer's disease) Social History Alcohol intake: never Patient Tobacco Use Status: Never used Tobacco Review of Systems Const Reports fatigue, Reports headache(s) and Reports weight gain Eyes Denies change in vision ENT Denies change in voice, Reports otalgia, Reports headache(s), Reports nasal congestion, Reports nasal discharge and Reports post nasal drip Card Denies chest pain and Reports dyspnea on exertion Resp Denies chest congestion, Reports cough, Reports dyspnea on exertion and Reports wheezing GI Denies nausea and Denies vomiting Musc Reports back pain Skin/Breast Denies rash Neuro Reports headache(s), Reports radicular pain and Reports paresthesias Endo Reports fatigue Rosalio/Lymph Denies easy bleeding, Denies easy bruising and Denies lymphadenopathy Aller/Immun Reports wheezing Physical Exam Vital Signs: Last Vital Signs Pulse 83 02/11/23 10:16 BP 118/60 02/11/23 10:16 Pulse Ox 97 02/11/23 10:16 Oxygen Delivery Method Room Air 02/11/23 10:16 BMI result Body Mass Index 33.9 Const General: alert HEENT Ears: TM normal on the left, external ear abnormal auricular tenderness on the right and TM abnormal wth effusion and erythematous Neck Neck: Yes normal visual inspection, Yes full ROM and Yes no lymphadenopathy Chest Chest palpation & inspection: normal inspection of the chest Resp Auscultation: no wheezes and diminished lung sounds Cardio Rate: regular rate Rhythm: regular rhythm Heart sounds: S1 normal heart sound present and S2 normal heart sound present GI Palpation (GI): Soft to palpation and nontender Auscultation: normal bowel sounds Skin General skin exam: no rashes or lesions noted Extrem General: Yes no clubbing, cyanosis or edema Assessment & Plan Assessment & Plan (1) Otitis: Code(s): H66.90 - Otitis media, unspecified, unspecified ear Qualifiers: Laterality: right Qualified Code(s): H66.91 - Otitis media, unspecified, right ear (2) Pneumonitis: Comment: very suspicious for hypersensitive pneumonitis versus sarcoidosis. It is upper lung zone predominance associated with nodular densities in a bronchovascular distribution. His ANCA studies were negative for any vasculitides. 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: Code(s): D80.8 - Other immunodeficiencies with predominantly antibody defects (7) JEANETTE (obstructive sleep apnea): Comment: minimal AHI on home sleep study Code(s): G47.33 - Obstructive sleep apnea (adult) (pediatric) Plan Start doxycycline ear drops medrol pack positional therapy for sleep ipratropium nasal spray fluticasone nasal spray No Afrin continue Symbicort KAUSHAL as needed CT chest in 12 months F/U 4-6 months Medications: New doxycycline monohydrate 100 mg PO BID 14 days 28 tabs 0RF methylprednisolone (Medrol ([place])) 4 mg PO DAILY 6 days 6 ea 0RF [id number]-[id number]-RC-thonzonium 3.3-3-10-0.5 mg/mL (Cortisporin-TC) 4 drps otic (ear) right TID 10 days 10 mL 0RF Coding Level of Care Code Est Pt Level 4 (69281) Diagnoses Otitis of right ear H66.91 Laterality: right Pneumonitis J18.9 Pulmonary nodules R91.8 Moderate persistent asthma without complication J45.40 Asthma complication type: uncomplicated Asthma persistence: persistent Asthma severity: moderate Dyspnea on exertion R06.09 Dyspnea type: dyspnea on exertion 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
[2023-02-11 10:16] VITALS: BP 118/60; PULSE 83; O2SAT 97; BMI 33.9
== END 2023-02-11 10:59 | disposition home or self-care (01) ==
PROVIDERS: PCP Internal Medicine; Visit Provider Hospitalist
DX: H66.91 Otitis media, unspecified, right ear (principal); J18.9 Pneumonia, unspecified organism; R91.8 Other nonspecific abnormal finding of lung field; J45.40 Moderate persistent asthma, uncomplicated; R06.09 Other forms of dyspnea; D80.8 Other immunodeficiencies with predominantly antibody defects; G47.33 Obstructive sleep apnea (adult) (pediatric)
CPT/HCPCS: 99214

== ENCOUNTER → 2023-02-11 10:12 | Outpatient (BNVA) | payer MEDICARE, MEDICAID, SELFPAY | PROVIDERS: PCP Internal Medicine; Visit Provider Hospitalist | DX: R91.8 Other nonspecific abnormal finding of lung field (principal); H66.91 Otitis media, unspecified, right ear; J45.40 Moderate persistent asthma, uncomplicated; R06.09 Other forms of dyspnea; D80.8 Other immunodeficiencies with predominantly antibody defects; G47.33 Obstructive sleep apnea (adult) (pediatric) | CPT/HCPCS: 99212 ==

== ENCOUNTER 2023-06-14 10:16 | Outpatient (AMB) | payer MEDICARE, MEDICAID, SELFPAY ==
[2023-06-14 10:19] VITALS: BP 112/66; PULSE 92; BMI 35.4
--- NOTE | 2023-06-14 10:19 | A.OFFVIS_ITS ---
Intake Vital Signs 06/14/23 10:19 Height 6 ft Weight 261 lb 3.964 oz BMI 35.4 BP 112/66 Blood Pressure Location Lt brachial Position Sitting Pulse 92 Pulse Source Pulse Oximeter Intake Visit Reasons: hypogonadism-confirmed Intake Note: Patient present today for hypogonadism follow up visit. 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 First diagnosed with Hypogonadism 2004 with labs revealing low testosterone . Had testosterone down to 85 per pt Was started on Testosterone supplementation with and found relief. Currently using testosterone IM 100 mg wkly . Last dose was wk ago . Currentlyachieving spontaneous am erections, and unable to achieve erection when desired with Cialis . Reports low libido without testosterone . Decreased facial hair and shaving frequency. Denies any change in size or shape of testicles smaller since testosterone . Denies penile discharge or scrotal tenderness. Denies any history of mumps orchitis. Denies any head trauma. Denies history of JEANETTE. Does snore at night only occasionally. with children who were conceived spontaneously. 4 children no problem with fertility Sense of smell intact. Denies headache or visual changes, gynecomastia or galactorrhea. Denies orthostatic symptoms, weight loss. Denies change in size of hands or feet. Denies hair loss, weight gain, cold intolerance. History of DVT or PE: No No change in urine stream on testosterone Labs: Consistent with secondary hypogonadism with normal prolactin. MRI of the pituitary was normal PSA CBC Less lethargy . More energy . No increased snoring . Sleep better . 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 Hypogonadism in male Dyspnea Bronchitis Asthma Pulmonary nodules Pneumonitis Surgical History History of tracheostomy History of surgery History of rotator cuff surgery History of knee replacement Family History Mother No known health problems Father High blood pressure AD (Alzheimer's disease) Social History Alcohol intake: never Patient Tobacco Use Status: Never used Tobacco Physical Exam Const Other: Rectal examination was normal smooth prostate Assessment & Plan Assessment & Plan (1) Hypogonadism in male: Code(s): E29.1 - Testicular hypofunction Plan: This is a 57-year-old male with 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 He had normal thyroid function and normal IGF-1 low. Plan is to continue the current therapy. We will check peak and trough testosterone, CBC and PSA. I also took the liberty referring him to urologist Dr. Chavez for evaluation of erectile l dysfunction (2) Erectile disorder: Code(s): N52.9 - Male erectile dysfunction, unspecified Plan: As above Orders: Orders Testosterone, Free/Total 1 Week E29.1 - Testicular hypofunction Testosterone, Free/Total 2 Weeks E29.1 - Testicular hypofunction Hematocrit 2 Weeks E29.1 - Testicular hypofunction Prostate Specific Antigen 2 Weeks E29.1 - Testicular hypofunction Hemoglobin 2 Weeks E29.1 - Testicular hypofunction Referrals Urology Referral N52.9 - Male erectile dysfunction, unspecified Coding Level of Care Code Est Pt Level 3 (83772) Diagnoses Hypogonadism in male E29.1 Erectile disorder N52.9
== END 2023-06-14 10:50 | disposition home or self-care (01) ==
PROVIDERS: PCP Internal Medicine; Visit Provider Internal Medicine Endocrinology, Diabetes & Metabolism
DX: E29.1 Testicular hypofunction (principal); N52.9 Male erectile dysfunction, unspecified
CPT/HCPCS: 99213

== ENCOUNTER → 2023-06-14 10:16 | Outpatient (BNVA) | payer MEDICARE, MEDICAID, SELFPAY | PROVIDERS: PCP Internal Medicine; Visit Provider Internal Medicine Endocrinology, Diabetes & Metabolism | DX: E29.1 Testicular hypofunction (principal); N52.9 Male erectile dysfunction, unspecified | CPT/HCPCS: 99212 ==

== ENCOUNTER 2023-07-06 09:56 | Outpatient (REF) | payer MEDICARE, MEDICAID, SELFPAY ==
[2023-07-06 10:55] LABS: Hematocrit 48.8 % (42.0-52.0); Hemoglobin 17.1 g/dl (14.0-18.0)
[2023-07-06 11:53] LABS: Prostate Specific Antigen 1.83 ng/mL (<0.05-4.0)
[2023-07-10 16:39] LABS: Testosterone, Free 183.3 pg/mL (35.0-155.0); Testosterone, Total 733 ng/dL (250-1100)
== END 2023-07-06 09:57 | disposition home or self-care (01) ==
LOC: HO.LAB 09:56
PROVIDERS: Absent Provider Internal Medicine Endocrinology, Diabetes & Metabolism; PCP Internal Medicine; Visit Provider Hospitalist
DX: E29.1 Testicular hypofunction (principal); J18.9 Pneumonia, unspecified organism; R91.8 Other nonspecific abnormal finding of lung field; J45.40 Moderate persistent asthma, uncomplicated; R06.09 Other forms of dyspnea; D80.8 Other immunodeficiencies with predominantly antibody defects; G47.33 Obstructive sleep apnea (adult) (pediatric); Z12.5 Encounter for screening for malignant neoplasm of prostate
CPT/HCPCS: 36415; 84153; 84402; 84403; 85014; 85018; 99212

== ENCOUNTER 2023-07-06 09:56 | Outpatient (AMB) | payer MEDICARE, MEDICAID, SELFPAY ==
[2023-07-06 10:04] VITALS: PULSE 81; O2SAT 97; BMI 33.9
--- NOTE | 2023-07-06 10:04 | MHC.OFFVIS ---
Intake Vital Signs 07/06/23 10:04 Height 6 ft Weight 250 lb BMI 33.9 Pulse 81 Pulse Source Pulse Oximeter Pulse Oximetry (%) 97 Oxygen Delivery Method Room Air Intake Visit Reasons: Dyspnea Road Equipment Operator Required: No Allergies Penicillins Allergy (Severe, Verified 07/06/23 10:05) Itching HPI HPI Comments History of Present Illness Details The patient is a 58-year-old gentleman with a known history of asthma in addition to severe allergies. Apparently the patient when he was 8 years old [place] the [place] and developed angioedema and respiratory distress requiring tracheostomy. Subsequently after that he did follow closely with Allergy and immunology. Patient also had a close relationship with primary care doctor. Patient did have recurrent infections and pneumonias which required usually antibiotics and prednisone. The patient also has severe back issues back disease and has needed cortisol shots. 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 Currently he is getting hormonal therapy. He is currently working with Endocrinology at this time. More recently during the winter just before the patient started getting sick again. The patient was given a brief course of antibiotics without any significant improvement. Apparently at that time he did have a chest x-ray that was considered abnormal per the patient although I do not have that report. He subsequently followed up with another x-ray again abnormal. More recent the patient did undergo a CT scan of the chest in June 2021. He did bring a copy of that and I was able to review of myself and also reviewed with the patient. The CT scan is very revealing. He has significant amount of areas of ground-glass opacities bilaterally predominantly in the upper lung zones associated with pulmonary nodules which appear to be to some degree calcified and also associated with the central part of the ground-glass densities. The patient also has pulmonary nodules in a perilymphatic distribution bringing up the question of inflammatory conditions such as sarcoidosis. The nodules are intermediate size and they are bilaterally. 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 But, after his back injuries he has not been able to work for many years. He denies exposure to any birds or any farm so. Denies any exposure to any mold. The patient is a lifelong nonsmoker. The patient has been using short-acting beta agonists was partial improvement of symptoms. He does feel this burning sensation when he breathes in and is very uncomfortable. The patient is also having issues with his adrenal axis. Since he has been on prednisone his workup has been placed on hold. Therefore, I will also try to hold off on any cortical steroids to prevent any further follow-up or workup for his endocrinology issues. at this point I do not see that that to conditions are associated. 02/23/2022 the patient is here for a pulmonary follow-up visit. He complains of increased chest tightness and burning sensation. These the symptoms he had initially when he was found to have the areas of pneumonitis and pulmonary nodules. He also has been working with the software implementation project manager regarding his so sometimes systems tremors no the bothers him hypogonadism. The patient did have a repeat CT scan of the chest with personally viewed in the office with him. The ground-glass areas appeared to be about the same although the pulmonary nodule components appear to be more solid more significant. At this point explained to the patient that he has we tried multiple inhalers and medications. The patient really needs to have a biopsy done to further delineate this process. We talked about surgical biopsies being the best high yield way to go about it. However he is concerned about having surgery. He is willing to do a bronchoscopy. He understands that the yield is not going to be 100%. Although we can not rule out infectious processes also do some transbronchial biopsies to try 06/07/2022 the patient is here for a pulmonary follow-up visit. He feels very tired lately. He has significant daytime drowsiness specially since he came off the testosterone. His [place] score is elevated 12/24. The patient does have snoring. The patient will need a sleep study at this time. Will set him up with a home sleep study. In the meantime will going to requested urgently in order for him to be potentially placed back on his testosterone therapy that he has been on for many years. The patient ultimately opted not having a diagnostic biopsy for his abnormal findings in the CT scan. The patient did have a CT scan back over the summer demonstrating persistent ground-glass opacities with some nodular component. Appears to be upper lung zone predominant it is suggestive of a hypersensitivity reaction. No significant scarring that I could appreciate. The last couple days the patient started developing worsening chest tightness and coughing. He is using his inhalers. The patient will benefit from a prednisone taper this time. Although will put him on a lower dose for longer duration. Will follow-up in a few weeks after his sleep study. 07/07/2022 the patient is here for a pulmonary follow-up visit. The patient overall is doing well. Continues to have some daytime drowsiness his [place] score is elevated it over 24. He did have a home sleep study was which is reassuring with about 4.9 episodes now which is considered normal. The patient understands that when he lays on his back is usually worse. If he lays on his side he does much better. He has a hard time lying on his back anyway because of his back discomfort. The patient does not qualify for CPAP at this time. He did start the testosterone therapy which is very happy about. He still continues to have significant nasal congestion postnasal drip. 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 He has been taking Afrin since he was a teenager. He uses it between 2 to 3 times a day. He understands that with super imposed congestion when he is not using it it is hard to provide any therapy for. He needs to ultimately stop the Afrin and work with the adverse effects. Will go ahead and place him on Flonase and also ipratropium to try to help minimize his sat side effects from the Afrin at this point. He is also taking [id number]-[id number] Sudafed which will help as well. From a respiratory status the patient is doing well. He does have a cough but is mainly from postnasal drip. He does have the nodular densities in the ground-glass opacities which we talked about before. He was reluctant to have any surgical biopsies or bronchoscopic biopsies so therefore which is monitoring closely. His next CT scans cleaning 6 months with follow-up. 01/05/2023 the patient is here for pulmonary follow-up visit. Overall his breathing is much better. He has been using the Symbicort. The patient feels like he is less short of breath. Less coughing. He did have a CT scan of the chest in October which we reviewed. It appears that he still has a ground-glass opacities primarily in the upper lung distribution. Also has pulmonary nodules. Again we talked about the differential being inflammatory process. Overlying recheck his hypersensitivity panel and his Charlie level. The patient does not want to undergo a biopsy although is the only way knowing exactly with this processes. He is not on any prednisone although he is on the inhaled steroid. He is going to continue for now. Will go ahead and repeat the CT scan in a year's time. If the patient has any worsening symptoms he is to call the office because we can not consider biopsy or reimaging at that point. 02/11/2023 the patient is here for sick visit. Several days ago he started developing at earache in addition to nasal congestion. He was having worsening cough. Patient denies any fevers or chills. He did take pseudoephedrine with good response. He feels like the cough is better. Still having the neck discomfort and also the year 8. His exam demonstrates some degree of otitis externa and also also inflammation of the tympanic membrane on the right side. Continue current respiratory therapy. He was an ankle orthopedic surgery scheduled for the end og the month. 07/06/2023 the patient is here for a pulmonary follow-up visit. Overall he is feeling better. Back and get her he was sick for several weeks. He had a significant cough chest congestion. He also has some chest tightness. He did take his respiratory medications but only partially better. Today he is still having some chest tightness sensation and also worsening productive cough with yellow phlegm. The patient has been using Symbicort. He has been partially helpful as well. Go will go ahead and add a long-acting muscarinic antagonist to see if we can provide brighter bronchodilation. He does have some wheezing on examination. Although he is concerned about using prednisone based on the fact that he has had issues with waking in adverse effects from the steroids. Therefore I will send him on Medrol [place] that he can hold in case he gets worse. The patient was start doxycycline. In the meantime we did spend some time again looking at his CT scans. He has upper lung zone predominant ground-glass areas with nodular densities. The nodular component appears to be in a central distribution. Differential appears to be more of an inflammatory process specially since this has not changed in the last year. Still we had talked about a biopsy but the patient opted not undergoing a surgical biopsy with concerned that he could exacerbate the condition. The patient has had a workup for connective tissue conditions which was all negative and also for hypersensitivity reactions withdrawal negative. Sarcoidosis is in the differential although he does not have any lymphadenopathy. The patient does have a component of increased wheezing and chest tightness at this time that may be part of the process the specially with a hypersensitivity reaction. The patient denies having any birds or mold in the house. His hypersensitivity panel was negative but is not ideal. He has been on inhaled cortical steroids. He does not want to go on systemic steroids again. Will go ahead and repeat a CT scan in 4 months which be a year from his last 1. If the findings are still present or worse then we did talk about considering a tertiary or 2nd opinion [place]. Otherwise he consider additional blood work looking for other inflammatory conditions. Again, will will bring up the possibility of a biopsy but again the patient has been reluctant in the past. 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 Hypogonadism in male Dyspnea Bronchitis Asthma Pulmonary nodules Pneumonitis Surgical History History of tracheostomy History of surgery History of rotator cuff surgery History of knee replacement Family History Mother No known health problems Father High blood pressure AD (Alzheimer's disease) Social History Alcohol intake: never Patient Tobacco Use Status: Never used Tobacco Review of Systems Const Reports fatigue, Reports weight gain and Reports weight loss Eyes Denies change in vision ENT Denies change in voice, Reports nasal congestion, Reports nasal discharge and Reports post nasal drip Card Denies chest pain and Reports dyspnea on exertion Resp Denies chest congestion, Reports cough, Reports dyspnea on exertion and Reports wheezing GI Denies nausea and Denies vomiting Musc Reports back pain Skin/Breast Denies rash Neuro Reports radicular pain and Reports paresthesias Endo Reports fatigue Rosalio/Lymph Denies easy bleeding, Denies easy bruising and Denies lymphadenopathy Aller/Immun Reports wheezing Physical Exam Vital Signs: Last Vital Signs Pulse 81 07/06/23 10:04 Pulse Ox 97 07/06/23 10:04 Oxygen Delivery Method Room Air 07/06/23 10:04 BMI result Body Mass Index 33.9 Const General: alert HEENT Ears: TM normal on the left, external ear abnormal auricular tenderness on the right and TM abnormal wth effusion and erythematous Neck Neck: Yes normal visual inspection, Yes full ROM and Yes no lymphadenopathy Chest Chest palpation & inspection: normal inspection of the chest Resp Effort & Inspection: Actively coughing Quality: actively coughing and prolonged expiratory phase Auscultation: no wheezes and diminished lung sounds Cardio Rate: regular rate Rhythm: regular rhythm Heart sounds: S1 normal heart sound present and S2 normal heart sound present GI Palpation (GI): Soft to palpation and nontender Auscultation: normal bowel sounds Skin General skin exam: no rashes or lesions noted Extrem General: Yes no clubbing, cyanosis or edema Assessment & Plan Assessment & Plan (1) Pneumonitis: Comment: very suspicious for hypersensitive pneumonitis versus sarcoidosis. It is upper lung zone predominance associated with nodular densities in a bronchovascular distribution. His ANCA studies were negative for any vasculitides. 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: Code(s): D80.8 - Other immunodeficiencies with predominantly antibody defects (6) JEANETTE (obstructive sleep apnea): Comment: minimal AHI on home sleep study Code(s): G47.33 - Obstructive sleep apnea (adult) (pediatric) Plan Start Spiriva continue Symbicort KAUSHAL as needed Medrol pk if no better positional therapy for sleep ipratropium nasal spray fluticasone nasal spray No Afrin CT chest in 4 months F/U 4-6 months Orders: Orders CT chest wo IV con 4 Months J18.9 - Pneumonia, unspecified organism, R91.8 - Other nonspecific abnormal finding of lung field Medications: New tiotropium bromide 2.5 mcg/actuation (Spiriva Respimat) 2 puffs inhalation DAILY 30 days 1 ea 11RF methylprednisolone (Medrol (B[place])) PO PER PKG DIR 6 days 21 ea 0RF Coding Level of Care Code Est Pt Level 4 (66242) Diagnoses Pneumonitis J18.9 Pulmonary nodules R91.8 Moderate persistent asthma without complication J45.40 Asthma complication type: uncomplicated Asthma persistence: persistent Asthma severity: moderate Dyspnea on exertion R06.09 Dyspnea type: dyspnea on exertion 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
== END 2023-07-06 10:30 | disposition home or self-care (01) ==
PROVIDERS: PCP Internal Medicine; Visit Provider Hospitalist
DX: J18.9 Pneumonia, unspecified organism (principal); R91.8 Other nonspecific abnormal finding of lung field; J45.40 Moderate persistent asthma, uncomplicated; R06.09 Other forms of dyspnea; D80.8 Other immunodeficiencies with predominantly antibody defects; G47.33 Obstructive sleep apnea (adult) (pediatric)
CPT/HCPCS: 99214

== ENCOUNTER 2023-08-24 12:34 | Outpatient (REF) | payer MEDICARE, MEDICAID, SELFPAY ==
--- NOTE | ~2023-08-24 | XR_ITS ---
EXAMINATION: XR CHEST CLINICAL INFORMATION: Bronchitis. COMPARISON: CT chest of November 18, 2022 TECHNIQUE: 3 views of the chest. FINDINGS: There is no gross pneumothorax. Heart size is normal. Lung volumes are low. No pleural effusion. Asymmetric prominence and increased density in the region of the left hilum, possibly related to vascularity and low lung volumes versus adenopathy. Repeat view with good inspiratory effort recommended. XR/XR chest 2V IMPRESSION: Asymmetric prominence and increased density in the region of the left hilum, possibly related to vascularity and low lung volumes versus adenopathy. Repeat view with good inspiratory effort recommended.
== END 2023-08-24 12:35 | disposition home or self-care (01) ==
LOC: HO.XRAY 12:34
PROVIDERS: PCP Internal Medicine; Visit Provider Hospitalist
DX: J40 Bronchitis, not specified as acute or chronic (principal)
CPT/HCPCS: 71046

== ENCOUNTER 2024-02-07 10:11 | Outpatient (AMB) | payer MEDICARE, MEDICAID, SELFPAY ==
--- NOTE | 2024-02-07 10:17 | A.OFFVIS_ITS ---
Vital Signs 02/07/24 10:19 Height 6 ft Weight 235 lb 14.314 oz BMI 32.0 BP 104/74 Blood Pressure Location Rt brachial Position Sitting Pulse 93 Pulse Source Pulse Oximeter Intake Visit Reasons: f/u hypogonadism-confirmed Intake Note: Patient present today for Hypogonadism follow up. 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 Accompanied by: Self / Same As Patient Allergies Penicillins Allergy (Severe, Verified 02/07/24 10:24) Itching Medication List - Last Reconciled 02/07/24 by Michael Mix MD albuterol sulfate 90 mcg/actuation 1 puff inhalation Q4H PRN budesonide-formoterol 160-4.5 mcg/actuation (Symbicort) 2 puffs inhalation BID 30 days methylprednisolone (Medrol ([place])) PO PER PKG DIR 6 days pseudoephedrine HCl ER 120 mg PO Q12H 30 days syringe with needle, safety As directed injects tesosterone once a wk testosterone cypionate 100 mg (0.5 mL) IM QWEEK tiotropium bromide 2.5 mcg/actuation (Spiriva Respimat) 2 puffs inhalation DAILY 30 days HPI Comments Details: 58 YO Male with PMHx who is seen in consultation at the request of his PCP for Hypogonadism. First diagnosed with Hypogonadism 2004 with labs revealing low testosterone . Had testosterone down to 85 per pt Was started on Testosterone supplementation with and found relief. Currently using testosterone IM 100 mg wkly . Last dose was wk ago . Currentlyachieving spontaneous am erections, and unable to achieve erection when desired with Cialis . Reports low libido without testosterone . Decreased facial hair and shaving frequency. Denies any change in size or shape of testicles smaller since testosterone . Denies penile discharge or scrotal tenderness. Denies any history of mumps orchitis. Denies any head trauma. Denies history of JEANETTE. Does snore at night only occasionally. with children who were conceived spontaneously. 4 children no problem with fertility Sense of smell intact. Denies headache or visual changes, gynecomastia or galactorrhea. Denies orthostatic symptoms, weight loss. Denies change in size of hands or feet. Denies hair loss, weight gain, cold intolerance. History of DVT or PE: No No change in urine stream on testosterone Labs: Consistent with secondary hypogonadism with normal prolactin. MRI of the pituitary was normal PSA CBC Less lethargy . More energy . No increased snoring . Sleep better . 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 Hypogonadism in male Dyspnea Bronchitis Asthma Pulmonary nodules Pneumonitis Surgical History History of tracheostomy History of surgery History of rotator cuff surgery History of knee replacement Family History Mother No known health problems Father High blood pressure AD (Alzheimer's disease) Social History Alcohol intake: never Patient Tobacco Use Status: Never used Tobacco Physical Exam Vital Signs: BMI result Body Mass Index 32.0 Const Other: A rectal examination was top normal smooth prostate Assessment & Plan Assessment & Plan (1) Hypotestosteronemia in male: Code(s): E29.1 - Testicular hypofunction Category: Medical (2) Hypogonadism in male: Code(s): E29.1 - Testicular hypofunction Category: Medical Plan: This is a 57-year-old male with 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 He had normal thyroid function and normal IGF-1 low. Plan is to continue the current therapy. We will check peak and trough testosterone, CBC and PSA. If he can try for okay, will change prescription to Q 4 days (3) Erectile disorder: Code(s): N52.9 - Male erectile dysfunction, unspecified Plan: As above Plan See above Orders: Orders Hematocrit 2 Weeks E29.1 - Testicular hypofunction Hemoglobin 2 Weeks E29.1 - Testicular hypofunction Testosterone, Free/Total 2 Weeks E29.1 - Testicular hypofunction Prostate Specific Antigen 2 Weeks E29.1 - Testicular hypofunction Coding Level of Care Code Est Pt Level 3 (42678) Diagnoses Hypotestosteronemia in male E29.1 Hypogonadism in male E29.1 Erectile disorder N52.9
[2024-02-07 10:19] VITALS: BP 104/74; PULSE 93; BMI 32.0
== END 2024-02-07 11:01 | disposition home or self-care (01) ==
PROVIDERS: PCP Internal Medicine; Visit Provider Internal Medicine Endocrinology, Diabetes & Metabolism
DX: E29.1 Testicular hypofunction (principal); N52.9 Male erectile dysfunction, unspecified
CPT/HCPCS: 99213

== ENCOUNTER 2024-02-07 11:05 | Outpatient (REF) | payer MEDICARE, MEDICAID, SELFPAY ==
[2024-02-07 13:26] LABS: Hematocrit 50.5 % (42.0-52.0); Hemoglobin 17.6 g/dl (14.0-18.0)
[2024-02-07 14:11] LABS: Prostate Specific Antigen 2.83 ng/mL (<0.05-4.0)
[2024-02-11 20:33] LABS: Testosterone, Total 973 ng/dL (250-1100)
== END 2024-02-07 11:06 | disposition home or self-care (01) ==
LOC: HO.10HDL 11:05
PROVIDERS: Visit Provider Internal Medicine Endocrinology, Diabetes & Metabolism
DX: Z12.5 Encounter for screening for malignant neoplasm of prostate (principal); E29.1 Testicular hypofunction; N52.9 Male erectile dysfunction, unspecified
CPT/HCPCS: 36415; 84153; 84402; 84403; 85014; 85018; 99212

== ENCOUNTER 2024-02-13 09:18 | Outpatient (AMB) | payer MEDICARE, MEDICAID, SELFPAY ==
[2024-02-13 09:30] VITALS: BP 110/70; PULSE 79; O2SAT 98; BMI 30.8
--- NOTE | 2024-02-13 09:30 | MHC.OFFVIS ---
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 Apparently the patient when he was 8 years old [place] the [place] and developed angioedema and respiratory distress requiring tracheostomy. Subsequently after that he did follow closely with Allergy and immunology. Patient also had a close relationship with primary care doctor. Patient did have recurrent infections and pneumonias which required usually antibiotics and prednisone. The patient also has severe back issues back disease and has needed cortisol shots. 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 Currently he is getting hormonal therapy. He is currently working with Endocrinology at this time. More recently during the winter just before the patient started getting sick again. The patient was given a brief course of antibiotics without any significant improvement. Apparently at that time he did have a chest x-ray that was considered abnormal per the patient although I do not have that report. He subsequently followed up with another x-ray again abnormal. More recent the patient did undergo a CT scan of the chest in June 2021. He did bring a copy of that and I was able to review of myself and also reviewed with the patient. The CT scan is very revealing. He has significant amount of areas of ground-glass opacities bilaterally predominantly in the upper lung zones associated with pulmonary nodules which appear to be to some degree calcified and also associated with the central part of the ground-glass densities. The patient also has pulmonary nodules in a perilymphatic distribution bringing up the question of inflammatory conditions such as sarcoidosis. The nodules are intermediate size and they are bilaterally. 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 But, after his back injuries he has not been able to work for many years. He denies exposure to any birds or any farm so. Denies any exposure to any mold. The patient is a lifelong nonsmoker. The patient has been using short-acting beta agonists was partial improvement of symptoms. He does feel this burning sensation when he breathes in and is very uncomfortable. The patient is also having issues with his adrenal axis. Since he has been on prednisone his workup has been placed on hold. Therefore, I will also try to hold off on any cortical steroids to prevent any further follow-up or workup for his endocrinology issues. at this point I do not see that that to conditions are associated. 01/05/2023 the patient is here for pulmonary follow-up visit. Overall his breathing is much better. He has been using the Symbicort. The patient feels like he is less short of breath. Less coughing. He did have a CT scan of the chest in October which we reviewed. It appears that he still has a ground-glass opacities primarily in the upper lung distribution. Also has pulmonary nodules. Again we talked about the differential being inflammatory process. Overlying recheck his hypersensitivity panel and his Charlie level. The patient does not want to undergo a biopsy although is the only way knowing exactly with this processes. He is not on any prednisone although he is on the inhaled steroid. He is going to continue for now. Will go ahead and repeat the CT scan in a year's time. If the patient has any worsening symptoms he is to call the office because we can not consider biopsy or reimaging at that point. 02/11/2023 the patient is here for sick visit. Several days ago he started developing at earache in addition to nasal congestion. He was having worsening cough. Patient denies any fevers or chills. He did take pseudoephedrine with good response. He feels like the cough is better. Still having the neck discomfort and also the year 8. His exam demonstrates some degree of otitis externa and also also inflammation of the tympanic membrane on the right side. Continue current respiratory therapy. He was an ankle orthopedic surgery scheduled for the end og the month. 07/06/2023 the patient is here for a pulmonary follow-up visit. Overall he is feeling better. Back and get her he was sick for several weeks. He had a significant cough chest congestion. He also has some chest tightness. He did take his respiratory medications but only partially better. Today he is still having some chest tightness sensation and also worsening productive cough with yellow phlegm. The patient has been using Symbicort. He has been partially helpful as well. Go will go ahead and add a long-acting muscarinic antagonist to see if we can provide brighter bronchodilation. He does have some wheezing on examination. Although he is concerned about using prednisone based on the fact that he has had issues with waking in adverse effects from the steroids. Therefore I will send him on Medrol [place] that he can hold in case he gets worse. The patient was start doxycycline. In the meantime we did spend some time again looking at his CT scans. He has upper lung zone predominant ground-glass areas with nodular densities. The nodular component appears to be in a central distribution. Differential appears to be more of an inflammatory process specially since this has not changed in the last year. Still we had talked about a biopsy but the patient opted not undergoing a surgical biopsy with concerned that he could exacerbate the condition. The patient has had a workup for connective tissue conditions which was all negative and also for hypersensitivity reactions withdrawal negative. Sarcoidosis is in the differential although he does not have any lymphadenopathy. The patient does have a component of increased wheezing and chest tightness at this time that may be part of the process the specially with a hypersensitivity reaction. The patient denies having any birds or mold in the house. His hypersensitivity panel was negative but is not ideal. He has been on inhaled cortical steroids. He does not want to go on systemic steroids again. Will go ahead and repeat a CT scan in 4 months which be a year from his last 1. If the findings are still present or worse then we did talk about considering a tertiary or 2nd opinion [place]. Otherwise he consider additional blood work looking for other inflammatory conditions. Again, will will bring up the possibility of a biopsy but again the patient has been reluctant in the past. 02/13/2024 the patient is here for a pulmonary follow-up visit. Continues have episodes of cough in addition to shortness of breath. [id number] severity. Does have his his inhalers that he uses regularly. They do provide him some relief. He did have a CT scan back in 11/16/2022 demonstrating numerous pulmonary nodules. In addition to that extensive areas of ground-glass opacities. We initially had talked about differential diagnosis. Will go ahead and request additional blood work to try to identify the process. Still though will go ahead and request a CT scan again in view of the concerning findings. The patient is aware that if the nodules have increasing size or the ground-glass areas have increased in size then a biopsy will be warranted. 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 Hypogonadism in male Dyspnea Bronchitis Asthma Pulmonary nodules Pneumonitis Surgical History History of tracheostomy History of surgery History of rotator cuff surgery History of knee replacement Family History Mother No known health problems Father High blood pressure AD (Alzheimer's disease) Social History Alcohol intake: never Patient Tobacco Use Status: Never used Tobacco Review of Systems Const Denies malaise Eyes Denies change in vision ENT Denies change in voice, Reports nasal congestion, Reports nasal discharge and Reports post nasal drip Card Denies chest pain and Reports dyspnea on exertion Resp Denies chest congestion, Reports cough, Reports dyspnea on exertion and Reports wheezing GI Denies nausea and Denies vomiting Musc Reports back pain Skin/Breast Denies rash Neuro Reports radicular pain and Reports paresthesias Rosalio/Lymph Denies easy bleeding, Denies easy bruising and Denies lymphadenopathy Aller/Immun Reports wheezing Physical Exam Vital Signs: Last Vital Signs Pulse 79 02/13/24 09:30 BP 110/70 02/13/24 09:30 Pulse Ox 98 02/13/24 09:30 Oxygen Delivery Method Room Air 02/13/24 09:30 BMI result Body Mass Index 30.8 Const General: alert HEENT Ears: TM normal on the left, external ear abnormal auricular tenderness on the right and TM abnormal wth effusion and erythematous Neck Neck: Yes normal visual inspection, Yes full ROM and Yes no lymphadenopathy Chest Chest palpation & inspection: normal inspection of the chest Resp Auscultation: no wheezes and diminished lung sounds Cardio Rate: regular rate Rhythm: regular rhythm Heart sounds: S1 normal heart sound present and S2 normal heart sound present GI Palpation (GI): Soft to palpation and nontender Auscultation: normal bowel sounds Skin General skin exam: no rashes or lesions noted Extrem General: Yes no clubbing, cyanosis or edema Assessment & Plan Assessment & Plan (1) Pneumonitis: Comment: very suspicious for hypersensitive pneumonitis versus sarcoidosis. It is upper lung zone predominance associated with nodular densities in a bronchovascular distribution. His ANCA studies were negative for any vasculitides. Code(s): J18.9 - Pneumonia, unspecified organism Category: Medical (2) Pulmonary nodules: Code(s): R91.8 - Other nonspecific abnormal finding of lung field Category: Medical (3) Asthma: Code(s): J45.909 - Unspecified asthma, uncomplicated Category: Medical Qualifiers: Asthma complication type: uncomplicated Asthma persistence: persistent Asthma severity: moderate Qualified Code(s): J45.40 - Moderate persistent asthma, uncomplicated (4) Dyspnea: Code(s): R06.00 - Dyspnea, unspecified Category: Medical Qualifiers: Dyspnea type: dyspnea on exertion Qualified Code(s): R06.09 - Other forms of dyspnea (5) 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: Code(s): D80.8 - Other immunodeficiencies with predominantly antibody defects Category: Medical (6) JEANETTE (obstructive sleep apnea): Comment: minimal AHI on home sleep study Code(s): G47.33 - Obstructive sleep apnea (adult) (pediatric) Category: Medical Plan holding Spiriva continue Symbicort KAUSHAL as needed positional therapy for sleep ipratropium nasal spray fluticasone nasal spray No Afrin CT chest now to follow up nodule F/U 4-6 months Orders: Orders Complete Blood Count Auto Diff Today J18.9 - Pneumonia, unspecified organism, R91.8 - Other nonspecific abnormal finding of lung field Angiotensin Converting Enzyme Today J18.9 - Pneumonia, unspecified organism, R91.8 - Other nonspecific abnormal finding of lung field Scleroderma 70 Antibody Today J18.9 - Pneumonia, unspecified organism, R91.8 - Other nonspecific abnormal finding of lung field Immunoglobulin E Today J18.9 - Pneumonia, unspecified organism, R91.8 - Other nonspecific abnormal finding of lung field CT chest wo IV con Today J18.9 - Pneumonia, unspecified organism, R91.8 - Other nonspecific abnormal finding of lung field Sjogren's Antibodies Today J18.9 - Pneumonia, unspecified organism, R91.8 - Other nonspecific abnormal finding of lung field Coding Level of Care Code Est Pt Level 4 (19715) Complex EM visit Add On G2211 Diagnoses Pneumonitis J18.9 Pulmonary nodules R91.8 Moderate persistent asthma without complication J45.40 Asthma complication type: uncomplicated Asthma persistence: persistent Asthma severity: moderate Dyspnea on exertion R06.09 Dyspnea type: dyspnea on exertion 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
== END 2024-02-13 09:59 | disposition home or self-care (01) ==
PROVIDERS: PCP Internal Medicine; Visit Provider Hospitalist
DX: J18.9 Pneumonia, unspecified organism (principal); R91.8 Other nonspecific abnormal finding of lung field; J45.40 Moderate persistent asthma, uncomplicated; R06.09 Other forms of dyspnea; D80.8 Other immunodeficiencies with predominantly antibody defects; G47.33 Obstructive sleep apnea (adult) (pediatric)
CPT/HCPCS: 99214; G2211

== ENCOUNTER → 2024-02-13 09:18 | Outpatient (BNVA) | payer MEDICARE, MEDICAID, SELFPAY | PROVIDERS: PCP Internal Medicine; Visit Provider Hospitalist | DX: J18.9 Pneumonia, unspecified organism (principal); R91.8 Other nonspecific abnormal finding of lung field; J45.40 Moderate persistent asthma, uncomplicated; R06.09 Other forms of dyspnea; D80.8 Other immunodeficiencies with predominantly antibody defects; G47.33 Obstructive sleep apnea (adult) (pediatric) | CPT/HCPCS: 99212 ==

== ENCOUNTER 2024-02-22 08:52 | Outpatient (REF) | payer MEDICARE, MEDICAID, SELFPAY ==
[2024-02-22 10:00] LABS: MANUAL DIFF FLAG NO
[2024-02-22 10:02] LABS: Basophils Percent Auto 0.8 % (0-2); Eosinophils Absolute Auto 0.1 X10*3/uL (0.0-0.4); Eosinophils Percent Auto 2.9 % (0-4); Hematocrit 45.9 % (42.0-52.0); Lymphocytes Absolute Auto 1.4 X10*3/uL (1.2-4.9); Lymphocytes Percent Auto 29.1 % (20-40); Mean Corpuscular HGB Conc 34.9 g/dl (31.0-36.0); Mean Corpuscular Hemoglobin 33.1 pg (27.0-33.0); Mean Platelet Volume 8.9 fL (9.4-12.4); Monocytes Absolute Auto 0.2 X10*3/uL (0.1-1.2); Monocytes Percent Auto 4.7 % (2-11); Neutrophils Percent Auto 62.5 % (45-73); Platelet Count 203 X10*3/uL (160-400); Red Blood Count 4.83 X10*6/uL (4.60-5.80); Red Cell Distribution Width 13.3 % (11.0-16.0); White Blood Count 4.9 X10*3/uL (4.8-10.8)
[2024-02-23 20:08] LABS: Antibody to SS-A Antigen <1.0 NEG AI (<1.0 NEG); Antibody to SS-B Antigen <1.0 NEG AI (<1.0 NEG); Scleroderma 70 Antibody <1.0 NEG AI (<1.0 NEG)
[2024-02-24 06:03] LABS: Immunoglobulin E 4 kU/L (<OR=114)
[2024-02-26 07:03] LABS: Angiotensin Converting Enzyme 23.3 U/L (9-67)
[2024-02-26 17:53] LABS: Testosterone, Free 180.2 pg/mL (35.0-155.0); Testosterone, Total 718 ng/dL (250-1100)
== END 2024-02-22 08:53 | disposition home or self-care (01) ==
LOC: HO.10HDL 08:52
PROVIDERS: Hospitalist; Visit Provider Internal Medicine Endocrinology, Diabetes & Metabolism
DX: E29.1 Testicular hypofunction (principal); R91.8 Other nonspecific abnormal finding of lung field; J18.9 Pneumonia, unspecified organism
CPT/HCPCS: 36415; 82164; 82785; 84402; 84403; 85025; 86235

== ENCOUNTER 2024-04-06 16:47 | Outpatient (REF) | payer MEDICARE, MEDICAID, SELFPAY | END 2024-04-06 16:48 | disposition home or self-care (01) | LOC: HO.CT 16:47 | PROVIDERS: PCP Internal Medicine; Visit Provider Hospitalist | DX: R91.8 Other nonspecific abnormal finding of lung field (principal); J18.9 Pneumonia, unspecified organism | CPT/HCPCS: 71250 ==

== ENCOUNTER → 2024-04-06 16:52 | Outpatient (BNV) | payer MEDICARE, MEDICAID, SELFPAY | PROVIDERS: PCP Internal Medicine; Visit Provider Radiology Diagnostic Radiology | DX: R91.8 Other nonspecific abnormal finding of lung field (principal) | CPT/HCPCS: 71250 ==

== ENCOUNTER 2024-08-14 08:49 | Outpatient (AMB) | payer MEDICARE, MEDICAID, SELFPAY ==
--- NOTE | 2024-08-14 08:52 | A.OFFVIS_ITS ---
Vital Signs 08/14/24 08:53 Height 6 ft Weight 251 lb 5.231 oz BMI 34.1 BP 108/62 Blood Pressure Location Lt brachial Position Sitting Pulse 85 Pulse Source Pulse Oximeter Pulse Oximetry (%) 96 Oxygen Delivery Method Room Air Intake Visit Reasons: dyspnea Allergies Penicillins Allergy (Severe, Verified 08/14/24 08:56) Itching HPI Comments Details: The patient is a 59-year-old gentleman with a known history of asthma in addition to severe allergies. Apparently the patient when he was 8 years old [place] the [place] and developed angioedema and respiratory distress requiring tracheostomy. Subsequently after that he did follow closely with Allergy and immunology. Patient also had a close relationship with primary care doctor. Patient did have recurrent infections and pneumonias which required usually antibiotics and prednisone. The patient also has severe back issues back disease and has needed cortisol shots. 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 Currently he is getting hormonal therapy. He is currently working with Endocrinology at this time. More recently during the winter just before the patient started getting sick again. The patient was given a brief course of antibiotics without any significant improvement. Apparently at that time he did have a chest x-ray that was considered abnormal per the patient although I do not have that report. He subsequently followed up with another x-ray again abnormal. More recent the patient did undergo a CT scan of the chest in June 2021. He did bring a copy of that and I was able to review of myself and also reviewed with the patient. The CT scan is very revealing. He has significant amount of areas of ground-glass opacities bilaterally predominantly in the upper lung zones associated with pulmonary nodules which appear to be to some degree calcified and also associated with the central part of the ground-glass densities. The patient also has pulmonary nodules in a perilymphatic distribution bringing up the question of inflammatory conditions such as sarcoidosis. The nodules are intermediate size and they are bilaterally. 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 But, after his back injuries he has not been able to work for many years. He denies exposure to any birds or any farm so. Denies any exposure to any mold. The patient is a lifelong nonsmoker. The patient has been using short- acting beta agonists was partial improvement of symptoms. He does feel this burning sensation when he breathes in and is very uncomfortable. The patient is also having issues with his adrenal axis. Since he has been on prednisone his workup has been placed on hold. Therefore, I will also try to hold off on any cortical steroids to prevent any further follow-up or workup for his endocrinology issues. at this point I do not see that that to conditions are associated. 01/05/2023 the patient is here for pulmonary follow-up visit. Overall his breathing is much better. He has been using the Symbicort. The patient feels like he is less short of breath. Less coughing. He did have a CT scan of the chest in October which we reviewed. It appears that he still has a ground-glass opacities primarily in the upper lung distribution. Also has pulmonary nodules. Again we talked about the differential being inflammatory process. Overlying recheck his hypersensitivity panel and his Charlie level. The patient does not want to undergo a biopsy although is the only way knowing exactly with this processes. He is not on any prednisone although he is on the inhaled steroid. He is going to continue for now. Will go ahead and repeat the CT scan in a year's time. If the patient has any worsening symptoms he is to call the office because we can not consider biopsy or reimaging at that point. 02/11/2023 the patient is here for sick visit. Several days ago he started developing at earache in addition to nasal congestion. He was having worsening cough. Patient denies any fevers or chills. He did take pseudoephedrine with good response. He feels like the cough is better. Still having the neck discomfort and also the year 8. His exam demonstrates some degree of otitis externa and also also inflammation of the tympanic membrane on the right side. Continue current respiratory therapy. He was an ankle orthopedic surgery scheduled for the end og the month. 07/06/2023 the patient is here for a pulmonary follow-up visit. Overall he is feeling better. Back and get her he was sick for several weeks. He had a significant cough chest congestion. He also has some chest tightness. He did take his respiratory medications but only partially better. Today he is still having some chest tightness sensation and also worsening productive cough with yellow phlegm. The patient has been using Symbicort. He has been partially helpful as well. Go will go ahead and add a long-acting muscarinic antagonist to see if we can provide brighter bronchodilation. He does have some wheezing on examination. Although he is concerned about using prednisone based on the fact that he has had issues with waking in adverse effects from the steroids. Therefore I will send him on Medrol [place] that he can hold in case he gets worse. The patient was start doxycycline. In the meantime we did spend some time again looking at his CT scans. He has upper lung zone predominant ground-glass areas with nodular densities. The nodular component appears to be in a central dis tribution. Differential appears to be more of an inflammatory process specially since this has not changed in the last year. Still we had talked about a biopsy but the patient opted not undergoing a surgical biopsy with concerned that he could exacerbate the condition. The patient has had a workup for connective tissue conditions which was all negative and also for hypersensitivity reactions withdrawal negative. Sarcoidosis is in the differential although he does not have any lymphadenopathy. The patient does have a component of increased wheezing and chest tightness at this time that may be part of the process the specially with a hypersensitivity reaction. The patient denies having any birds or mold in the house. His hypersensitivity panel was negative but is not ideal. He has been on inhaled cortical steroids. He does not want to go on systemic steroids again. Will go ahead and repeat a CT scan in 4 months which be a year from his last 1. If the findings are still present or worse then we did talk about considering a tertiary or 2nd opinion [place]. Otherwise he consider additional blood work looking for other inflammatory conditions. Again, will will bring up the possibility of a biopsy but again the patient has been reluctant in the past. 02/13/2024 the patient is here for a pulmonary follow-up visit. Continues have episodes of cough in addition to shortness of breath. [id number] severity. Does have his his inhalers that he uses regularly. They do provide him some relief. He did have a CT scan back in 11/16/2022 demonstrating numerous pulmonary nodules. In addition to that extensive areas of ground-glass opacities. We initially had talked about differential diagnosis. Will go ahead and request additional blood work to try to identify the process. Still though will go ahead and request a CT scan again in view of the concerning findings. The patient is aware that if the nodules have increasing size or the ground- glass areas have increased in size then a biopsy will be warranted. 08/14/2024 the patient is here for a pulmonary follow-up visit. Overall he is doing okay although he recovering after being diagnosed with pancreatitis. A pparently he did have his shoulder surgery and afterwards he has severe abdominal discomfort. Found to have pancreatitis. The etiology is unclear but may be related to the anesthesia. He continues to have respiratory symptoms. Continues to respond well to the Symbicort. Although he does need to use his rescue inhaler regularly for wheezing and also chronic bronchitis. The patient does respond to prednisone but will trying to minimize prednisone at this time specially after surgery. He will benefit from Daliresp. However, in view of his ongoing GI symptoms I would not recommend he can started right now. If he does have improvement in GI symptoms he needs at baseline then he can start small dose and do a trial to see if it is well tolerated without any significant GI symptoms. If any GI symptoms arise would not recommend he continue it. We did review his CT scan of the chest. Personally by me. Demonstrating significant improvement of the airspace disease in the nodular densities. He still has stable pulmonary nodules in still ground-glass opacities but significantly improved. He may have some remnants specially because of the chronicity. 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 Hypogonadism in male Dyspnea Bronchitis Asthma Pulmonary nodules Pneumonitis Surgical History History of tracheostomy History of surgery History of rotator cuff surgery History of knee replacement Family History Mother No known health problems Father High blood pressure AD (Alzheimer's disease) Social History Alcohol intake: never Patient Tobacco Use Status: Never used Tobacco Review of Systems Const Denies malaise Eyes Denies change in vision ENT Denies change in voice, Reports nasal congestion, Reports nasal discharge and Reports post nasal drip Card Denies chest pain and Reports dyspnea on exertion Resp Denies chest congestion, Reports cough, Reports dyspnea on exertion and Reports wheezing GI Denies nausea and Denies vomiting Musc Reports back pain Skin/Breast Denies rash Neuro Reports radicular pain and Reports paresthesias Rosalio/Lymph Denies easy bleeding, Denies easy bruising and Denies lymphadenopathy Aller/Immun Reports wheezing Physical Exam Vital Signs: Last Vital Signs Pulse 85 08/14/24 08:53 BP 108/62 08/14/24 08:53 Pulse Ox 96 08/14/24 08:53 Oxygen Delivery Method Room Air 08/14/24 08:53 BMI result Body Mass Index 34.1 Const General: alert HEENT Ears: TM normal on the left, external ear abnormal auricular tenderness on the right and TM abnormal wth effusion and erythematous Neck Neck: Yes normal visual inspection, Yes full ROM and Yes no lymphadenopathy Chest Chest palpation & inspection: normal inspection of the chest Resp Auscultation: no wheezes and diminished lung sounds Cardio Rate: regular rate Rhythm: regular rhythm Heart sounds: S1 normal heart sound present and S2 normal heart sound present GI Palpation (GI): Soft to palpation and nontender Auscultation: normal bowel sounds Skin General skin exam: no rashes or lesions noted Extrem General: Yes no clubbing, cyanosis or edema Assessment & Plan Assessment & Plan (1) Pneumonitis: Comment: very suspicious for hypersensitive pneumonitis versus sarcoidosis. Appears much improved Code(s): J18.9 - Pneumonia, unspecified organism Category: Medical (2) Pulmonary nodules: Code(s): R91.8 - Other nonspecific abnormal finding of lung field Category: Medical (3) Asthma: Code(s): J45.909 - Unspecified asthma, uncomplicated Category: Medical Qualifiers: Asthma complication type: uncomplicated Asthma persistence: persistent Asthma severity: moderate Qualified Code(s): J45.40 - Moderate persistent asthma, uncomplicated (4) Dyspnea: Code(s): R06.00 - Dyspnea, unspecified Category: Medical Qualifiers: Dyspnea type: dyspnea on exertion Qualified Code(s): R06.09 - Other forms of dyspnea (5) 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: Code(s): D80.8 - Other immunodeficiencies with predominantly antibody defects Category: Medical (6) JEANETTE (obstructive sleep apnea): Comment: minimal AHI on home sleep study Code(s): G47.33 - Obstructive sleep apnea (adult) (pediatric) Category: Medical Plan Start Daliresp 250mcg, stop for any significant GI symptoms continue Symbicort KAUSHAL as needed positional therapy for sleep ipratropium nasal spray fluticasone nasal spray No Afrin F/U 6 months Medications: New roflumilast (Daliresp) 250 mcg PO DAILY 30 tabs 11RF 30 days J44.9 - Chronic obstructive pulmonary disease, unspecified Coding Level of Care Code Est Pt Level 4 (28878) Complex EM visit Add On G2211 Diagnoses Pneumonitis J18.9 Pulmonary nodules R91.8 Moderate persistent asthma without complication J45.40 Asthma complication type: uncomplicated Asthma persistence: persistent Asthma severity: moderate Dyspnea on exertion R06.09 Dyspnea type: dyspnea on exertion 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
[2024-08-14 08:53] VITALS: BP 108/62; PULSE 85; O2SAT 96; BMI 34.1
--- OUTSIDE RECORDS SUMMARY | 2024-08-14 09:20 | XMS_ITS | Encounter Summary ---
Author Organization [facility] Address [address] [place] [id number] Care Team Providers Care Applications Developer Name Role Phone Stef Griffin MD Primary Care Provider Encounter Details Date Type Department Care Team (Late st Contact Info) Description 02/21/2023 Scanned Document [facility] [address] [facility] [address] [place] [id number] Albert Castillo MD [address] [place] [id number] Social History Tobacco Use Types Packs/Day Years Used Date Smoking Tobacco: Never Assessed Sex and Gender Information Value Date Recorded Sex Assigned at Male 01/12/2023 9:55 AM EDT Gender Identity Male 01/12/2023 9:55 AM EDT Sexual Orientation Other 01/12/2023 9: 55 AM EDT documented as of this encounter Plan of Treatment Not on file documented as of this encounter Visit Diagnoses Not on filedocumented in this encounter Care Teams Applications Developer Relationship Specialty Start Date End Date Stef Griffin MD [address] [facility] [address] [place] [address] PCP - General 02/01/23 documented as of this encounter
--- OUTSIDE RECORDS SUMMARY | 2024-08-14 09:20 | XMS_ITS | Clinical Summary ---
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 Not on stella e 01/05/2023 Are you concerned about learning? Not on file 01/05/2023 No 01/05/2023 No 01/05/2023 Digital Access Answer Date Recorded No 01/05/2023 No 01/05/2023 Reliable internet access at home? Not on file 01/05/2023 Device with a working camera? Not on file Sex and Gender Information Value Date Recorded Sex Assigned at Not on file Gender Identity Not on file Sexual Orientation Not on file Plan of Treatment Health Maintenance Due Date Last Done Comments Adult Td,Tdap Booster 1966 LIPID PANEL 1966 DEPRESSION SCREENING 1978 SMOKING Hx and SMOKELESS TOB ACCO SCREENING 1979 HEPATITIS B SCREENING 1984 HEPATITIS C SCREENING 1984 HIV ONE-TIME SCREENING (18-6 5 YEARS) 1984 HEPATITIS B VACCINES (1 of 3 - 19+ 3-dose series) 1985 COLOGUARD 2011 COLONOSCOPY 2011 COLORECTAL CANCER SCREENING 2011 FIT TEST 2011 FOBT 2011 SIGMOIDOSCOPY 2011 VIRTUAL COLONOSCOPY 2011 PNEUMOCOCCAL VACCINES (50+ y ears) (1 of 1 - PCV) 2016 ZOSTER VACCINES (1 of 2) 2016 INFLUENZA VACCINE (#1) 2023 COVID-19 VACCINE (1 - 2023-2 5 season) 2024 HEPATITIS A VACCINES Aged Out No long er eligible based on patient's age to complete this topic HIB VACCINES Aged Out No longer eligi ble based on patient's age to complete this topic MENINGOCOCCAL VACCINES (ACWY) Aged Out No longer eligible based on patient's age to complete this topic Medical Devices Not on file Care Teams Psychology Teacher Relationship Specialty Start Date End Date Stef Griffin MD [address] [place] [address] PCP - General Internal Medicine 01/05/23 Additional Source Comments The information contained in this document represents components of the legal health record. It is not the complete legal health record.[facility]
--- OUTSIDE RECORDS SUMMARY | 2024-08-14 09:20 | XMS_ITS | Continuity of Care Document ---
Author Organization [facility] Address [address] [place] [address]- Care Team Providers Care Natural Resource Officer Name Role Phone Danuta Bryant Primary Care Physician [id number] Date(s): 07/31/24 - 08/07/24 [facility] [address] [place] [address]- Encounter Diagnosis Duodenitis(Discharge Diagnosis) - 08/02/24 Attending Physician: Stfe Griffin MD Encounter Type: Office Visit Allergies, Adverse Reactions, Alerts Substance Criticality Severity Reaction Reaction Severity Status penicillin Unable to assess criticality Persistent Mild Active Immunizations Given and Recorded Vaccine Date Status Refusal Reason pneumococcal 20-valent conjugate vaccine 01/05/23 Recorded tetanus-diphtheria toxoids (Td) 1 12/17/22 Given tetanus-diphtheria toxoids (Td) 05/30/98 Given 1Result Comment: [facility] [id number] Medications Compazine Tablet = 5 mg, By Mouth, 4 times a day, 0 Refills, Maintenance, 07/23/24 6:15:00 AM EST, Tablet, Partial fill upon patient request if the prescription is for a schedule II opioid drug. Start Date: 07/23/24 Status: Ordered Repeat number: 1 ondansetron 4 mg oral tablet 1 tablet = 4 mg, By Mouth, 3 times a day, for 10 days, # 30 tablet, 2 Refills, Acute 08/30/24 4:50:00PM EDT, 07/31/24 4:50:00 PM EST, [id number], Partial fill upon patient request if the prescription is for a schedule II opioid drug., 183, cm, 07/31/24 16:13:00 EST, Height, 105.5, kg, 07/23/2516:05:00 EST, Dry Weight Start Date: 07/31/24 Stop Date: 08/30/24 Status: Ordered Quantity: 30.0 Unit: tablet Repeat number: 3 oxyCODONE 5 mg oral tablet 5 mg, 1, tablet, By Mouth, Every 6 hours, PRN, Refills 0, Tot. Refills 0, Maintenance, for pain, 07/23/24 6:15:00 AM EST, Partial fill upon patient request if the prescription is for a schedule II opioid drug. Start Date: 07/23/24 Status: Ordered Repeat number: 1 pantoprazole 40 mg oral delayed release tablet = 40 mg, By Mouth, Daily, # 90 tablet, 0 Refills, Maintenance, 07/25/24 5:03:00 PM EST, EC Tablet, 183, cm, 07/25/24 16:48:00 EST, Height, 105.5, kg, 07/23/24 17:05:00 EST, Dry Weight Start Date: 07/25/24 Stop Date: 10/23/24 Status: Ordered Quantity: 90.0 Unit: tablet Repeat number: 1 Testosterone = 1 mg, Intramuscular, Every 7 days, 0 Refills, Maintenance, 10/30/13 11:29:38 AM EDT Start Date: 10/30/13 Status: Ordered Repeat number: 1 Problem List Condition Confirmation Course Effective Dates Status Health at Informant Asthma Confirmed Active Chronic low back pain Confirmed Active L4-5 and L5-S1 disc protrusion Confirmed Active Lumbar post-laminectomy syndrome Confirmed Active Hypogonadism male Confirmed Active Pulmonary nodules Confirmed Active Obese class I Confirmed Active Diagnosis Diagnosis Type Effective Dates Health Status Clini kat Service Informant Duodenitis Discharge Diagnosis 08/02/24 Vital Signs Most recent to oldest [Reference Range]: 1 Height 183 cm (07/31/24 4:13 PM) Weight 106.1 kg (07/31/24 4:13 PM) Oxygen Saturation [94-100 %] 97 % (07/31/24 4:13 PM) Pulse Rate [55-90 bpm] 80 bpm (07/31/24 4:13 PM) Body Mass Index [18.5-24.99 kg/m2] 31.68 kg/m2 *>HHI* (07/31/24 4:13 PM) Blood Pressure [90-138/55-84 mm Hg] 112/ 70mm Hg (07/31/24 4:13 PM) Blood pressure sites Arm, left (07/31/24 4:13 PM) Social History Social History Type Response Smoking Status Never (less than 100 in lifetime) entered on: 12/17/22 Sex Sex Representation Male (finding) Note * Mindy Roldan MA: PERFORM Event Display: Patient Education/Instruction Authored Date: [id number] Ambulatory Adult Visit Summary [facility] [address] [place] [address] Name: HAYLEY COURTNEY : 1965?? Visit: 07/31/2024 16:07?? Ambulatory Visit Instructions ?? Your Care Team Primary Care Provider Danuta Bryant? This Visit Provider Stef Griffin MD Your Diagnosis Chronic prescription opiate use Vitals Signs Pulse Rate: 80 bpm Height: 183 cm Systolic Blood Pressure: 112 mm Hg Weight: 106.1 kg Diastolic Blood Pressure: 70 mm Hg Body Mass Index:??31.68 kg/m2??Critical Oxygen Saturation: 97 % Body surface area: 2.32 What to do next Scheduled Follow-Up Appointments Tuesday 2:40 PM EDT ?? With: Stef Griffin MD Where: [facility] [address] [place] [address]- Status: Pending Future Orders Basic Metabolic Panel - Routine, Once, 12/22/23 6:49:00 EDT, Order for Today, [facility], Blood?? Barbiturate Urine Screen (Urine Barbiturate Screen) - Routine, Once, Collected, 07/31/24 17:14:00 EST, Order for Today, [facility], Urine?? Amphetamine Urine Screen (Urine Amphetamine Screen) - Routine, Once, Collected, 07/31/24 17:14:00 EST, [facility], Urine?? Cannabinoid Urine Screen (Urine Cannabinoid Screen) - Routine, Once, Collected, 07/31/24 17:14:00 EST, [facility], Urine?? Cocaine Urine Screen (Urine Cocaine Screen) - Routine, Once, Collected, 07/31/24 17:14:00 EST, [facility], Urine?? Ethanol Urine (Urine Alcohol) - Routine, Once, Collected, 07/31/24 17:14:00 EST, [facility], Urine?? Opiate Screen Urine - Routine, Once, Collected, 07/31/24 17:15:00 EST, [facility], Urine?? PCP Urine - Routine, Once, Collected, 07/31/24 17:15:00 EST, [facility], Urine?? Oxycodone Screen Urine - Routine, Once, Collected, 07/31/24 17:15:00 EST, [facility], Urine?? Benzodiazepine Urine Screen - Routine, Once, Collected, 07/31/24 17:15:00 EST, [facility], Urine?? Methadone Urine - Routine, Once, Collected, 07/31/24 17:15:00 EST, [facility], Urine?? Fentanyl Screen, Urine - Routine, Once, Collected, 07/31/24 17:15:00 EST, [facility], Urine?? Medications The list below reflects the information in our records and provided by you today along with any changes made during this visit. Please continue your medications until treatment is completed or stopped by your provider. If this is different from the information you have or there are other questions,please contact the prescribing provider. What How Much When Instructions Changed Ondansetron (ondansetron 4 mg oral tablet) 1 tab(s) Oral 3 times a day Duration: 10 Days Pickup at [id number] Unchanged Oxycodone (oxyCODONE 5 mg oral tablet) 1 tab(s) Oral Every 6 hours as needed for for pain Unchanged Pantoprazole (pantoprazole 40 mg oral delayed release tablet) 40 Milligram Oral Daily Duration: 90 Days Unchanged PROCHLORperazine (Compazine Tablet) 5 Milligram Oral 4 times a day Unchanged Testosterone 1 Milligram Intramuscular Every 7 days Pharmacy Information [facility]/pharmacy #[id number]: [address] [place] [phone] Test Performed Below is a partial list of the tests performed during your Visit. You may have had other tests and procedures not included in this list. Please discuss all test results with your provider. Benzodiazepine Urine Screen?-- Results Pending -- Fentanyl Screen, Urine?-- Results Pending -- Methadone Urine?-- Results Pending -- Opiate Screen Urine?-- Results Pending -- Oxycodone Screen Urine?-- Results Pending -- PCP Urine?-- Results Pending -- Urine Alcohol?-- Results Pending -- Urine Amphetamine Screen?-- Results Pending -- Urine Barbiturate Screen?-- Results Pending -- Urine Cannabinoid Screen?-- Results Pending -- Urine Cocaine Screen?-- Results Pending -- Medications and Immunizations Administered Medications Given During Visit No medications given during this visit.?? Allergies (NKA means No Known Allergies) penicillin Common Emergency Awareness Tips IS IT A STROKE? Act FAST and Check for these signs: FACE Does the face look uneven? ARM Does one arm drift down? SPEECH Does their speech sound strange? TIME Call at any sign of stroke ?? Heart Attack Signs Chest discomfort: Most heart attacks involve discomfort in the center of the chest and lasts more than a few minutes, or goes away and comes back. It can feel like uncomfortable pressure, squeezing, fullness or pain. Discomfort in upper body: Symptoms can include pain or discomfort in one or both arms, back, neck, jaw or stomach. Shortness of breath: With or without discomfort. Other signs: Breaking out in a cold sweat, nausea, or lightheaded. Remember, MINUTES DO MATTER. If you experience any of these heart attack warning signs, call to get immediate medical attention! ?? Smoking can increase your chances of developing chronic health problems and can cause harmful effects to other family members in your house. If you smoke, you are strongly encouraged to quit. Please call [facility] at [phone] or [phone] [facility] ([phone]) or log in to [email or web address] for referrals to smoking cessation programs. ?? The National Suicide Prevention Hotline is available 20/12 if you or someone you know needs to find a reason to keep living. By calling 3-792-428-talk (1075) you'll be connected to a skilled, trained counselor at a crisis center in your area. [facility] Portal You can view and manage your care through the patient portal or by using a health care susy of your choosing. [employer] is a website that allows you to securely view your medical information including your hospital discharge summary, office visit summaries, medications and follow-up visits. You can also request appointments, renew medications, and request access to your medical information using a health care susy of your choosing, or just ask a question. You can enroll at [email or web address] or register during your next office visit. [facility], in keeping with [facility] guidance, no longer requires face masks for staff, patientsor visitors in most situations. Similiar to time spent indoors at other locations, there is the chance that you were exposed to repiratory viruses during your time with us (such as flu or COVID-19). If you develop symptoms concerning for a viral respiratory infection, please seek testing (and treatment if indicated) from your medical provider or home test kit. ?? Disclaimer: The information provided is of a general nature and is intended to be used in conjunction with the recommendations and advice of your health care practitioner. Every effort has been made to ensure that the information provided is accurate and complete at the time it is provided to you however, as your needs change, or, as new information becomes available, different or additional instructions may be required. ?? If you have questions, please consult with your primary care provider or pharmacist, as appropriate. This information is not intended to serve as substitution for assessment and evaluation by a qualified health care provider. If you do not have a primary care provider, you may find a [facility] provider by calling [facility] Link at [phone]. Patient Care team information Care Team Personnel Name: Danuta Bryant Position: [facility] PCO Associate Professional Member Role: PCP Address: [address] [place] [address]- Telecom: Care Team Related Persons Name: KATHY COURTNEY Name: ELISHA ROBIN Insurance Providers Guarantor name: NA Health Plan Information #: 2 Payer: [facility] Member Number: [id number] Policy Number: Group Number: Health Plan Information #: 1 Payer: [employer] H[employer] Member Number: [id number] Policy Number: Group Number: [id number]
--- OUTSIDE RECORDS SUMMARY | 2024-08-14 09:20 | XMS_ITS | Encounter Summary ---
Author Organization [facility] Address [address] [place] [address] Care Team Providers Care Inspector Ball Points Name Role Phone Stef Griffin MD Primary Care Provider [phone] Encounter Details Date Type Department Care Team (Late st Contact Info) Description 02/22/2023 Scanned Document [facility] [address] [facility] [address] [place] [address] Albert Castillo MD [address] [place] [address] Social History Tobacco Use Types Packs/Day Years Used Date Smoking Tobacco: Never Assessed Sex and Gender Information Value Date Recorded Sex Assigned at Male 01/12/2023 9:55 AM EDT Gender Identity Male 01/12/2023 9:55 AM EDT Sexual Orientation Other 01/12/2023 9 :55 AM EDT documented as of this encounter Plan of Treatment Not on file documented as of this encounter Visit Diagnoses Not on filedocumented in this encounter Care Teams Inspector Ball Points Relationship Specialty Start Date End Date Stef Griffin MD [address] [facility] [address] [place] [address] PCP - General 02/01/23 documented as of this encounter
--- OUTSIDE RECORDS SUMMARY | 2024-08-14 09:20 | XMS_ITS | Patient Health Record ---
Author Organization [facility] Address [address] [facility] [address] [place] [address] Support Name Relationship Address Phone John Scott Guarantor Unknown [phone] Allergies Allergen (clinical drug ingredient) Drug/Non Drug Allergy documented on EMR Reaction Allergy Type Onset Date Status Penicillin Unknown Drug Allergy Active Reason For Referral No Information Medications Medication SIG (Take, Route, Frequency, Duration) Notes Start Date End Date Status Testosterone Cypionate 200 MG/ML INJECT 1 ML INTRAMUSCULAR WEEKLY 30 DAYS for 30 2021 Active Vitamin C 500 MG 1 tablet Orally Once a day Active Albuterol Sulfate HFA 108 (90 Base) MCG/ACT 1 puff as needed Inhalation every 4 hrs for 30 days Active B Complex - as directed Orally o ne daily Active ProAir HFA 108 (90 Base) MCG/ACT 1 puff as needed Inhalation every 4 hours (please dispense as proair) for 30 days 02/03/2021 Active oxyCODONE-Acetaminophen 10-325 MG 1 tablet as needed Orally 3 times a day for 28 days 04/29/2021 Active Morphine Sulfate ER 80 MG 1 capsule Oral ly every 12 hrs for 28 days 04/29/2021 Active Social History Tobacco Use: Social History Observation Description Date Details (start date - stop date) Never Smoker NA - NA Tobacco Use/Smoking Question Answer Notes Are you a nonsmoker Alcohol Screen (Audit-C) Question Answer Notes Did you have a drink containing alcohol in the p ast year? 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 Problem Lumbosacral radiculopathy (3760040) Radiculopathy, lumbosacral region (M54.17) Active confirmed Problem Body mass index 30.00 to 34.99 (209817115651455) Body mass index (BMI) 33.0-33.9, adult (Z68.33) Active confirmed Problem Body mass index 30.00 to 34.99 (607134147257186) Body mass index (BMI) 34.0-34.9, adult (Z68.34) Active confirmed Problem Body mass index 40+ - morbidly obese (998784996) Body mass index (BMI) 50-59.9 , adult (Z68.43) Active confirmed Problem Asthma (532658094) Asthma (J45.909) Active confirmed Plan Of Treatment No Information Insurance Providers Payer Name Payer Address Payer Phone Subscriber Number Group Number Insured Name Patient Relationship to Insured Coverage Start Date Coverage End Date [facility] [address] [place] [phone] [id number] John Scott Self - patient is the insured [place] [address] [place] [address] [id number] John Scott Self - patient is the insured Medical (General) History Medical History History ICD Code failed back syndrome testicular hypofunction lumbar radiculopathy asthma Surgical History Surgery Date(Month/Year) back surgery knee surgery, bilateral shoulder surgery, bilateral
--- OUTSIDE RECORDS SUMMARY | 2024-08-14 09:20 | XMS_ITS | Clinical Summary ---
Author Organization [facility] Address [address] [place] [address] Care Team Providers Care Stick Inserter Name Role Phone Stef Griffin MD Primary Care Provider [phone] Allergies Active Allergy Reactions Criticality Noted Date Comments Penicillins Anaphylaxis High 01/12/2023 Medications Medication Sig Dispensed Refills Start Date End Date Status Vitamin D3 (CHOLECALCIFEROL) 50 MCG (1999 UT) tabletIndications: Peroneal tendon injury, initial encounter Take 2 tablets (4,000 Units total) by mouth daily. 30 tablet 3 02/17/2023 Active zinc sulfate (ZINCATE) 220 mg capsuleIndications :Peroneal tendon injury, initial encounter Take 1 capsule (220 mg total) by mouth daily. 90 capsule 1 02/17/2023 Active methocarbamol (ROBAXIN) 750 MG tabletIndications: Peroneal tendon injury, initial encounter Take 1 tablet (750 mg total) by mouth 4 (four) times a day. 60 tablet 1 02/17/2023 Active oxyCODONE (ROXICODONE) 5 MG immediate release tabletIndications: Peroneal tendon injury, initial encounter Take 1 tablet (5 mg total) by mouth 4 times daily (every 6 hours) as needed for severe pain. TAKE AFTER SURGERY NEEDED FOR PAIN. Preoperative diagnosis peroneal tendon and deltoid ligament tears. Surgery scheduled by Dr. Castillo on 02/21/2023. Partial fill on request. Max Daily Amount: 20 mg 28 tablet 02/17/2023 Active gabapentin (NEURONTIN) 300 MG capsuleIndications :Peroneal tendon injury, initial encounter Take 1 capsule (300 mg total) by mouth 3 (three) times a day. 30 capsule 02/17/2023 Active aspirin (MARIELA ASPIRIN) 325 MG tabletIndications: Peroneal tendon injury, initial encounter Take 1 tablet (325 mg total) by mouth 2 (two) times a day with breakfast and dinner. TAKE AFTER SURGERY TO PREVENT BLOOD CLOTS 60 tablet 02/17/2023 Active pregabalin (LYRICA) 100 MG capsuleIndications :Traumatic rupture of left posterior tibial tendon, subsequent encounter Take 1 capsule (100 mg total) by mouth 2 (two) times a day. 60 capsule 1 03/01/2023 Active amitriptyline (ELAVIL) 25 MG tabletIndications: Left ankle pain, unspecified chronicity Take 1 tablet (25 mg total) by mouth nightly. 30 tablet 1 03/15/2023 Active oxyCODONE (ROXICODONE) 5 MG immediate release tabletIndications: Traumatic rupture of left posterior tibial tendon, subsequent encounter Take 1 tablet (5 mg total) by mouth 4 times daily (every 6 hours) as needed for severe pain. TAKE AFTER SURGERY NEEDED FOR PAIN Max Daily Amount: 20 mg 28 tablet 03/18/2023 Active meloxicam (MOBIC) 15 MG tabletIndications: Peroneal tendon injury, initial encounter TAKE 1 TABLET (15 MG TOTAL) BY MOUTH DAILY. 30 tablet 03/17/2023 Active Active Problems No known active problems Social History Tobacco Use Types Packs/Day Years Used Date Smoking Tobacco: Never Assessed Sex and Gender Information Value Date Recorded Sex Assigned at Male 01/12/2023 9:55 AM EDT Gender Identity Male 01/12/2023 9:55 AM EDT Sexual Orientation Other 01/12/2023 9: 55 AM EDT Plan of Treatment Health Maintenance Due Date Last Done Comments Hepatitis C Virus Screening 1965 HIV Screening 1979 DTaP/Tdap/Td Vaccines (1 - Tdap) 1985 Hepatitis B Vaccines (1 of 3 - 19+ 3-dose series) 1985 Colonoscopy 2011 Pneumococcal Vaccines 50+ (1 of 1 - PCV) 2016 Zoster (Shingles) Vaccine (1 of 2) 2016 Influenza Vaccine 12/29/2023 COVID-19 Vaccine ( - 2023-2 5 season) 2024 Pneumococcal Vaccine: Pediat elliot (0-5 Years) and At-Risk Patients (6 to 49 Years) Aged Out No longer eligible b ased on patient's age to complete this topic Care Teams Stick Inserter Relationship Specialty Start Date End Date Stef Griffin MD [address] [facility] [address] [place] [address] PCP - General 02/01/23
--- OUTSIDE RECORDS SUMMARY | 2024-08-14 09:20 | XMS_ITS | Encounter Summary ---
Author Organization [facility] Address [address] [place] [address] Care Team Providers Care Property Worker Name Role Phone Stef Griffin MD Primary Care Provider Encounter Details Date Type Department Care Team (Late st Contact Info) Description 02/04/2023 Scanned Document [facility] [address] [place] [address] Albert Castillo MD [address] [place] [address] Social History Tobacco Use Types Packs/Day Years [...] on filedocumented in this encounter Care Teams Property Worker Relationship Specialty Start Date End Date Stef Griffin MD [address] [facility] [address] [place] [address] PCP - General 02/01/23 documented as of this encounter
--- OUTSIDE RECORDS SUMMARY | 2024-08-14 09:20 | XMS_ITS | Encounter Summary ---
Author Organization [facility] Address [address] [place] [address] Care Team Providers Care Film Washer Name Role Phone Stef Griffin MD Primary Care Provider [phone] Encounter Details Date Type Department Care Team (Late st Contact Info) Description 01/18/2024 Scanned Document [facility] [address] [place] [address] Ching Estrada [address] [facility] [address] [place] [address] Social History Tobacco Use Types Packs/Day Years [...] on filedocumented in this encounter Care Teams Film Washer Relationship Specialty Start Date End Date Stef Griffin MD [address] [facility] [address] [place] [address] PCP - General 02/01/23 documented as of this encounter
--- OUTSIDE RECORDS SUMMARY | 2024-08-14 09:20 | XMS_ITS | Continuity of Care Document ---
Author Organization [facility] Address [address] [place] [address]- Care Team Providers Care Accounts Payable Processor Name Role Phone Danuta Bryant Primary Care Physician Encounter [facility] NBR [id number] Date(s): 07/24/24 - 07/25/[address] [address]- Discharge Disposition: A-D/C Home Attending Physician: Dinah Cano MD Admitting Physician: Yoana Green Referring Physician: Not on Staff, Referring MD Encounter Type: Disch IP Allergies, Adverse Reactions, Alerts Substance Criticality Severity Reaction Reaction Severity Status penicillin Unable to assess criticality Persistent Mild Active Immunizations Given and Recorded Vaccine Date Status Refusal Reason pneumococcal 20-valent conjugate vaccine 01/05/23 Recorded tetanus-diphtheria toxoids (Td) 1 12/17/22 Given tetanus-diphtheria toxoids (Td) 05/30/98 Given 1Result Comment: [facility] [id number] Medications acetaminophen 325 mg oral capsule 1 capsule = 325 mg, By Mouth, 3 times a day, PRN Pain , Mild, for 5 days, # 15 capsule, 0 Refills, Acute 07/30/24 5:21:00 PM EST, 07/25/24 5:21:00 PM EST, Partial fill upon patient request if the prescription is for a schedule II opioid drug. Start Date: 07/25/24 Stop Date: 07/30/24 Status: Ordered Quantity: 15.0 Unit: capsule Repeat number: 1 Compazine Tablet = 5 mg, By Mouth, 4 times a day, 0 Refills, Maintenance, 07/23/24 6:15:00 AM EST, Tablet, Partial fill upon patient request if the prescription is for a schedule II opioid drug. Start Date: 07/23/24 Status: Ordered Repeat number: 1 oxyCODONE 5 mg oral tablet 5 mg, [...] Date: 10/30/13 Status: Ordered Repeat number: 1 Zofran ODT 4 mg oral tablet, disintegrating 1 tablet, By Mouth, Every 8 hours, PRN as needed for nausea/vomiting, 0 Refills, Maintenance, 07/23/24 6:15:00 AM EST, DIS Tablet, Partial fill upon patient request if the prescription is for a schedule II opioid drug. Start Date: 07/23/24 Status: Ordered Repeat number: 1 Problem List Condition Confirmation Course Effective Dates Status Health St atus Informant Asthma Confirmed Active Chronic low back pain Confirmed Active L4-5 and L5-S1 disc protrusion Confirmed Active Lumbar post-laminectomy syndrome Confirmed Active Hypogonadism male Confirmed Active Pulmonary nodules Confirmed Active Obese class I Confirmed Active Results Radiology Reports * Exam Date Time Procedure Performing Provider Status 07/23/24 2:23 PM US RUQ Vic Fleming; Natalie ( Verified) Notes: (US RUQ) Reason For Exam: Abdominal Pain;Other: RESULT: US RUQ US RUQ Reason: Other:; Abdominal Pain; Clinical Question(s): Cholecystitis; Special Instructions: please evaluate CBD COMPARISON: September 20, 2024. FINDINGS: Liver: Normal in size and echotexture. No focal lesion. Smooth hepatic contour. Main portal vein patent with normal hepatopetal direction of flow. Gallbladder: Etiology of transient Biliary Tree: No intrahepatic or extrahepatic bile duct dilation is identified. Common duct measures: 0.3 cm. Pancreas: Partially obscured by overlying bowel gas. No definite sonographic abnormality in the visualized portions of the pancreas. Right kidney: 10.7 cm in length. Normal parenchymal echotexture and thickness. No hydronephrosis, stone or mass. IMPRESSION: Unremarkable right upper quadrant ultrasound. No evidence of acute cholecystitis or biliary ductal dilatation. WSN: [id number] Ordering Physician: Yoana Cavazos Dictated By: Albert Mayer MD Dictated Date/Time: 07/23/24 2:39 pm Reviewed By: Albert Mayer MD Signed By: Albert Mayer MD Signed Date/Time: 07/23/24 2:39 pm Transcribed By: GIANNI Transcribed Date/Time: 07/23/24 2:32 pm * Exam Date Time Procedure Performing Provider Status 07/23/24 11:57 AM Chest Portable Elliot Nguyen (Verified) Notes: (Chest Portable) Reason For Exam: Cough RESULT: Chest Portable Examination: Portable chest performed on 07/23/2024. History: Shoulder pain. Findings: A frontal view of the chest is compared to a prior study dated 06/14/2005. The cardiac and mediastinal silhouettes are within normal limits. The lungs are clear. The osseous and soft tissue structures are unremarkable. IMPRESSION: There is no acute cardiopulmonary disease. WSN: [id number] Ordering Physician: Jose Magallon Dictated By: Gloria Reyna MD Dictated Date/Time: 07/23/24 12:15 p Reviewed By: Gloria Reyna MD Signed By: Gloria Reyna MD Signed Date/Time: 07/23/24 12:15 pm Transcribed By: GIANNI Transcribed Date/Time: 07/23/24 12:14 pm * Exam Date Time Procedure Performing Provider Status 07/23/24 11:[address] Abd/Pelvis W/ IV Contrast Only Cee Stovall (Verified) Notes: (CT Abd/Pelvis W/ IV Contrast Only) Reason For Exam: Pain RESULT: CT Abd/Pelvis W/ IV Contrast Only CT Abd/Pelvis W/ IV Contrast Only Hx of Present Illness: Pt presents from home with vomtiing, nausea and abd pain. Had shoulder surgery 2 21 and has been feeling ill since then. Pain in the abd is 6 10 shoulder pain is 5 10. Last oxywas at 1800 2 23 25 unable to eat or drink x 2 days; Reason: Pain; Clinical Question(s): Obstruction TECHNIQUE: Spiral CT through the abdomen and pelvis with IV contrast formatted in 3 planes. 100 cc of Isovue 300 was administered intravenously. This study was performed without oral contrast. Weight-based protocol using automatic tube modulation was used to optimize exposure parameters. CTDIvol Body: 20.53 mGy, DLP Body: 1129 mGy*cm. COMPARISON: None. FINDINGS: Manometer Technician View Findings, Lines and Tubes: None. Visualized Chest: Mild basilar atelectasis. Trace pleural fluid. Diaphragm: Normal. Liver: No acute abnormality. No focal mass. Streak artifact present from patient's extremity at their side. Gallbladder: No calcified stones or evidence of acute inflammation. Bile ducts: No biliary ductal dilation. Spleen: Spleen is at upper limit of normal size. No infarct or acute abnormality. Pancreas: Edema and indistinctness of the pancreatic head with stranding and edema seen between thepancreas and the duodenum, the pancreatic groove, example series 2 image 55. There is no drainable fluid collection. Adrenal glands: No mass or thickening. Kidneys and ureters: Bilateral parapelvic cysts. No hydronephrosis. No solid renal mass. Bladder: Normal. Reproductive organs: No acute abnormality Stomach, small bowel, and large bowel: No bowel obstruction. Indistinctness at the level of the second portion of the duodenum with mild hyperemia present at the duodenal mucosa with also edematous appearance of the wall regional, which starts at the distalmost pylorus. This is seen for example in series 2 image 58 with surrounding stranding. There is moderate colonic stool burden in the proximal colon to splenic fracture. Appendix: No evidence for acute appendicitis. Peritoneum and retroperitoneum: No ascites. No intra-abdominal fluid collection. No omental or mesenteric lesions. Lymph nodes: No adenopathy. Blood vessels: Normal. No aneurysm. No evidence of venous thrombosis. Abdominal and pelvic wall: No acute abnormality. Small fat-containing of focal hernia. Bones: No acute or destructive osseous abnormality. Severe degenerative changes present at the lower lumbar spine and lumbosacral levels with chronic and degenerative changes including facet arthropathy and grade 1 anterolisthesis of L4 on L5. There is partial lumbarization of S1. Fragmentation at the posterior aspect of the S1 vertebral body is chronic in appearance and could relate to degenerative changes. IMPRESSION: Edematous appearance of the proximal pancreas with trace adjacent free fluid and edema extending tothe pancreatic grove. Findings are concerning for acute pancreatitis. Mild hyperemia of the duodenal mucosa with wall edema regionally can be reactive or could be seen with duodenitis. There is no formed pseudocyst or drainable collection. Findings communicated to Dr. Magallon in the emergency department at 1151 on day of exam. WSN: [id number] Ordering Physician: Jose Magallon Dictated By: Gayatri Jimenez MD Dictated Date/Time: 07/23/24 11:51 a Reviewed By: Gayatri Jimenez MD Signed By: Gayatri Jimenez MD Signed Date/Time: 07/23/24 11:51 am Transcribed By: GIANNI Transcribed Date/Time: 07/23/24 11:45 am Vital Signs Most recent to oldest [Reference Range]: 1 2 3 Height 183 cm (07/25/24 4:48 PM) 183 cm (07/25/24 2:24 PM) 183 cm (07/25/24 7:57 AM) Weight 105.5 kg (07/25/24 2:24 PM) 105.5 kg (07/23/24 5:05 PM) 105.5 kg (07/23/24 4:49 PM) Oxygen Saturation [94-100 %] 100 % (07/25/24 4:48 PM) 95 % (07/25/24 3:48 PM) 94 % (07/25/24 3:43 PM) Pulse Rate [55-90 bpm] 73 bpm (07/25/24 4:48 PM) 68 bpm (07/25/24 2:24 PM) 65 bpm (07/25/24 7:57 AM) Body Mass Index [18.5-24.99 kg/m2] 31.5 kg/m2 *>HHI* (07/25/24 2:24 PM) 31.5 kg/m2 *>HHI* (07/23/24 5:05 PM) 31.5 kg/m2 *>HHI* (07/23/24 4:49 PM) Blood Pressure [90-138/55-84 mm Hg] 139/84mm Hg *H* (07/25/24 4:48 PM) 141/81mm Hg *H* (07/25/24 3:48 PM) 147/86mm Hg *H* (07/25/24 3:43 PM) Respiratory Rate [16-30 br/min] 20 br/min (07/25/24 4:48 PM) 20 br/min (07/25/24 3:48 PM) 21 br/min (07/25/24 3:43 PM) Temperature [96.8-100.4 DegF] 97.7 DegF (07/25/24 4:48 PM) 97.8 DegF (07/25/24 3:23 PM) 97.6 DegF (07/25/24 2:24 PM) Mode of Delivery (Oxygen) Room air (07/25/24 4:48 PM) Room air (07/25/24 3:48 PM) Room air (07/25/24 3:43 PM) Blood pressure sites Arm, left (07/25/24 4:48 PM) Arm, left (07/25/24 3:48 PM) Arm, left (07/25/24 3:43 PM) Temperature Route Oral (07/25/24 4:48 PM) Temporal (07/25/24 3:23 PM) Temporal (07/25/24 2:24 PM) Dry Weight 105.5 kg (07/23/24 5:05 PM) 100 kg (07/23/24 6:14 AM) 100 kg (07/23/24 6:10 AM) Weight Obtained Via Standing scale (07/23/24 4:49 PM) Patient/family stated (07/23/24 6:14 AM) Patient/family stated (07/23/24 6:10 AM) Dry Weight Obtained Via Patient lift dillon ging scale (07/23/24 6:10 AM) Social History Social History Type Response Smoking Status Never (less than 100 in lifetime) entered on: 12/17/22 Sex Sex Representation Male (finding) Clinical Note * Event Display: GG EGD Please click on pdf link to open report Consult note * Pete Cha MD: PERFORM, MODIFY, MODIFY, MODIFY, MODIFY, MODIFY, MODIFY, MODIFY, MODIFY Event Display: Consult Authored Date: [id number] Patient: ??HAYLEY COURTNEY ? Age:??59 Years?Sex:??Male?:??1965?? Referrring Provider Not on Staff, Referring MD Chief Complaint Abdominal pain and vomiting 2218 Lucie Gardiner MD Reason for Consultation Abdominal pain with vomiting post arthroscopic shoulder surgery on Tuesday. Imaging suggestive of acute pancreatitis however lipase is normal and pain is right upper quadrant only. Imaging also concerning for duodenitis Lookner Yoana DUNNE History of Present Illness Patient had arthroscopic shoulder surgery on Tuesday. On Tuesday morning he developed persistent morning, then latter on sharp severe epigastric/RUQ pain. He has some worsening of his symptoms with food intake. He has a BM before surgery, but no BM since then. Today (Tuesday) he is feeling better since he is in the hospital receiving symptomatic medications,although he appears uncomfortable He was taking Advil 200mg-2 tab a day for a week prior to surgery Review of Systems Constitutional:??No weight loss, fever Respiratory:??No shortness of breath, cough Cardiovascular:??No chest pain. Gastrointestinal:??No diarrhea. No blood in stool. Physical Exam Vitals & Measurements T:??98.2?F?? TMIN:??97.8?F?? TMAX:??98.8?F?? HR:??67??(Peripheral)?? RR:??18?? BP:??148/85?? SpO2:??93%?? WT:??105.5??kg?? A, Ox3 in NAD Heart regular Lungs: clear Abdomen: soft, no distended. RUQ/epigastric tenderness Legs no swelling Assessment/Plan Patient with new onset constipation, epigastric/RUQ pain, vomiting. In the setting of recent arthroscopic shoulder surgery and use of NSAIDs. Main consideration is PUD with reactive pancreatitis.??w Recommendations MiraLAX 17gr po qhs PPI Symptomatic/supportive care, IVF. Clear liquid diet today, NPO after midnight. EGD tomorrow, he is educated about procedure, he understand and agrees. Problem List/Past Medical History Ongoing Arthroscopic left shoulder procedures Arthroscopic shoulder right procedures Asthma Basal cell carcinoma Chronic low back pain Colon polyps Hypogonadism male L4-5 and L5-S1 disc protrusion Lumbar post-laminectomy syndrome Obese class I JEANETTE (obstructive sleep apnea) Pneumonitis Pulmonary nodules Procedure/Surgical History ???Back Surgery???Basal cell carcinoma excision???Cyst excision???L Deltoid Surgery???Knee replacement???Rotator cuff repair???Tonsillectomy???Tracheostomy Medications Inpatient Acetaminophen Tablet, 975 mg, By Mouth, Every 6 hours, PRN Colace sodium 100 mg oral capsule, 100 mg= 1 capsule, By Mouth, 2 times a day Compazine Inj, 5 mg= 1 mL, IV Push, Every 6 hours, PRN Enoxaparin Inj, 40 mg= 0.4 mL, Subcutaneous Injection, Every 24 hours HYDROmorphone Inj, 0.2 mg= 0.2 mL, IV Push Slowly, Every 4 hours, PRN HYDROmorphone Inj, 0.5 mg= 0.5 mL, IV Push Slowly, Every 4 hours, PRN Lactated Ringers 1,000 mL, 1000 mL, IV Infusion NaCL 0.9% Flush, 3 mL, IV Push, Every 8 hours Protonix Inj, 40 mg, IV Push Slowly, Every 12 hours Reglan Inj, 5 mg, IV Push Slowly, 3 times a day before meals and bedtime Senna 8.6 mg oral tablet, 17.2 mg= 2 tablet, By Mouth, Daily at bedtime Home Compazine Tablet, 5 mg, By Mouth, 4 times a day oxyCODONE 5 mg oral tablet, 5 mg= 1 tablet, By Mouth, Every 6 hours, PRN Testosterone, 1 mg, Intramuscular, Every 7 days Zofran ODT 4 mg oral tablet, disintegrating, 1 tablet, By Mouth, Every 8 hours, PRN Allergies penicillin Social History Alcohol Use: Never. Electronic Cigarette/Vaping Electronic Cigarette Use: Never. Employment/School Status: Disabled. Exercise Self assessment: Fair condition. Regular exercise: No. Home/Environment Living situation: Home/Independent. Lives with: Children. Nutrition/Health Diet: High Protein, Low Fat. Substance Abuse Use: Never. Tobacco Use: Never (less than 100 in lifetime). Family History ADHD - Attention deficit disorder with hyperactivity: Daughter. Alzheimer's disease: Father. Cancer: Aunt. Hypertension: Father. Lab Results Test Name Test Result Date/Time WBC 8.7 k/mm3 07/24/2024 06:13 EST Hgb 14.9 Gm/dL 07/24/2024 06:13 EST Hgb 17.0 Gm/dL 12/21/2023 08:40 EDT Hct 40.9 % 07/24/2024 06:13 EST Hct 51.3 % 12/21/2023 08:40 EDT MCV 90.9 femtoliters 07/24/2024 06:13 EST Platelet Count 239 k/mm3 07/24/2024 06:13 EST BUN 13 mg/dL 07/24/2024 06:13 EST Creatinine-Blood 1.10 mg/dL 07/24/2024 06:13 EST Estimated GFR Creatinine 78 ML/MIN/1.73 M2 07/24/2024 06:13 EST Estimated GFR Creatinine 62 ML/MIN/1.73 M2 02/02/2023 09:07 EDT Alkaline Phosphatase 81 units/L 07/24/2024 06:13 EST AST (SGOT) 20 units/L 07/24/2024 06:13 EST ALT (SGPT) 20 units/L 07/24/2024 06:13 EST Bilirubin, Total 0.8 mg/dL 07/24/2024 06:13 EST Cholesterol 165 mg/dL 12/21/2023 08:40 EDT Triglycerides 133 mg/dL 12/21/2023 08:40 EDT HDL Cholesterol 30 mg/dL 12/21/2023 08:40 EDT Non HDL Cholesterol 135 mg/dL 12/21/2023 08:40 EDT VLDL Cholesterol Calc 24 mg/dL 12/21/2023 08:40 EDT LDL Chol Calc (NIH) 111 mg/dL 12/21/2023 08:40 EDT Diagnostic Results (07/23/2024 11:[address] Abd/Pelvis W/ IV Contrast Only) Edematous appearance of the proximal pancreas with trace adjacent free fluid and edema extending tothe pancreatic grove. Findings are concerning for acute pancreatitis. Mild hyperemia of the duodenal mucosa with wall edema regionally can be reactive or could be seen with duodenitis. There is no formed pseudocyst or drainable collection. ?? (07/23/2024 14:23 EST US RUQ) Unremarkable right upper quadrant ultrasound. No evidence of acute cholecystitis or biliary ductal dilatation. [1] [1]??US RUQ; Albert Mayer MD 07/23/2024 14:23 EST History and physical note * Issacner Yoana DUNNE: PERFORM Event Display: History and Physical Hospital Authored Date: Patient: ??HAYLEY COURTNEY ? Age:??59 Years?Sex:??Male?:??1965?? Chief Complaint/Reason for Consultation Abdominal pain and vomiting History of Present Illness This is a 59-year-old gentleman with a past medical history of hypogonadism, chronic low back pain,basal cell carcinoma, mild intermittent asthma??who underwent??right arthroscopic??shoulder??surgery on Tuesday??with??post??anesthesia nausea and vomiting.?? Patient states that immediately after surgery he did well and was discharged to home. ??Later that evening he became extremely nauseous. ??BySat morning the patient??began vomiting and was having a lot of dry heaves.?? Zofran??was prescribed for him, however was ineffective.?? On Tuesday he was prescribed Compazine??that seemed to help a little bit better.?? Patient reports his last bowel movement was Tuesday morning prior to surgeryand denies any chronic constipation. ??He is complaining of periumbilical??discomfort??that is actually more superior to the umbilicus and does not radiate.?? He has no appetite. ??He denies sensation of feeling bloated.?? He is passing small amounts of gas.?? He has had intermittent heartburn and reflux.?? There is no other 6 exposures in the family.?? Patient denies excessive NSAID use.?? Due to the symptoms patient came to [facility]. ??He is found to be hemodynamically stable. ??Electrolytes??within normal limits,??CBC with mild leukocytosis of 12,000. ??Urinalysis??is negative. ??CT of the abdomen and pelvis??Showing edema at the proximal pancreas with a trace adjacent free fluid and edema extending to the pancreatic groove concerning for acute pancreatitis.?? There is mild hyperemia in the duodenal mucosa with with wall edema regionally considered reactive versus duodenitis.? Interestingly,??lipase is not elevated. ??On physical exam patient has right upper quadrant tenderness only without guarding or rebound.?? He was administered IV morphine and the patient reports increased symptoms after receiving this??but did report improvement in his nausea with??IV Compazine.?? W e have been asked to admit the patient for observation??continuation and management. ? Review of Systems GEN: ??Denies any issues with sleep, fatigue or changes in wt, fever, chills, noc sweats HEENT: Denies runny nose, dry mouth, ??sore throat or changes to his vision. CV: Denies CP, palpitations, edema or orthopnea. PULM: Denies any SOB, wheezing, cough. ABD: + abdominal pain, N/V, occasional heartburn. ??Denies any changes to bowel habits or stool character. Last BM 07/20 : Denies dysuria, polyuria, or hematuria. EXT: + right shoulder??stiff,??pain PSYCH: Denies any depression or anxiety. NEURO: Headache, seizure, dizziness ?? Objective Vital Signs?? Temperature: 98 DegF (07/23/24 08:29:00) Temperature Route: Axillary (07/23/24 08:29:00) Pulse Rate: 76 bpm (07/23/24 12:17:00) Respiratory Rate: 18 br/min (07/23/24 09:31:00) Systolic Blood Pressure: 129 mm Hg (07/23/24 12:17:00) Diastolic Blood Pressure: 66 mm Hg (07/23/24 12:17:00) Blood pressure sites: Arm, left (07/23/24 12:17:00) Mean Arterial Pressure: 87 mm Hg (07/23/24 12:17:00) Pulse Pressure: 63 mm Hg (07/23/24 12:17:00) Oxygen Saturation: 94 % (07/23/24 12:17:00) Mode of Delivery (Oxygen): Room air (07/23/24 12:17:00) ? Intake/Output? No Data Available ?? Precautions No Precautions documented.? Yaw Coma Scale Yaw Coma Score: 15 (07/23/24 06:14:00) Motor Response-Adult: Obeys commands (07/23/24 06:14:00) Response Eye Opening: Spontaneously (07/23/24 06:14:00) Verbal Response-Adult: Oriented and converses (07/23/24 06:14:00) ? Physical Exam Constitutional: Alert, moderate distress. Mental Status: Oriented to person, place and time. Head: Normocephalic, atraumatic Eyes: Pupils are equal, round and reactive to light. Extraocular muscles intact. Sclera anicteric Ear, Nose and Throat: Oropharynx clear, mucous membranes moist. Trachea midline. Neck: Supple, Full range of motion. Respiratory: Clear to auscultation. No wheezing, rales or rhonchi. Cardiovascular: S1 S2 regular. No murmurs, rubs or gallops. Gastrointestinal: Abdomen soft, RUQ tenderness without rebound, non-distended. Normal bowel sounds.No pulsatile mass. No hepatosplenomegaly. Neurologic: Cranial nerves II-XII grossly intact. No focal neurological deficits. Moves all extremities spontaneously.?? Skin: No rashes or lesions. No petechiae or purpura.?? Musculoskeletal: No cyanosis or clubbing. No gross deformities. RUE??sling Psychiatric: Normal mood and affect Assessment/Plan Diagnoses 1. ??Abdominal pain ??(R10.9) 2. ??Asthma ??(J45.909) 3. ??Chronic low back pain ??(M54.50) 4. ??Hypogonadism male ??(E29.1) 5. ??History of arthroscopic surgery of shoulder ??(Z98.890) ?? Assessment:??59-year-old gentleman??with history of hypogonadism,??mild intermittent asthma, basal cell carcinoma,??chronic low back pain with recent right arthroscopic surgery??who presents with??post??anesthesia nausea and vomiting??imaging consistent with potential acute pancreatitis, imaging con cerning for possible duodenitis as well??admitted??for??abdominal pain. ?? Abdominal pain (R10.9):?? Differential diagnosis:??Question resolving pancreatitis,??acute duodenitis,??cholecystitis, postoperative??anesthesia induced ileus,??gastritis from chronic NSAIDs Continue??workup and evaluation for potential??acute pancreatitis.??Unclear precipitant.??Patient denies any alcohol use.??Is not taking any nuwy-pun-mpxpvmf or prescription medications that may precipitate this.??No prior history of pancreatitis in the past.??Concern given the degree of??Right upper quadrant tenderness??and a normal lipase level.??No gallstones seen on CT??of the abdomen CBD does not appear dilated??and LFTs are within normal limits.??I will obtain a dedicated right upper quadrant ultrasound.??Recommend??gastroenterology consultation.??For now admit patient.??Bowel rest, n.p.o. status with sips of clears.??Also noted on imaging is a moderate stool burden.??Question some degree of constipation versus postoperative ileus.??Discontinue morphine and administer hydromorphone??to prevent??sphincter of Oddi contraction pain.??Implement??Reglan.??Continue IV fluids.??Serial abdominal exams.??For suspected duodenitis add IV PPI.??If symptoms do not improve consider endoscopy??versus??surgical consultation. ?? History of arthroscopic surgery of shoulder (Z98.190):??Plan as above.Patient reports prior to surgery was using Advil 2 tablets on a daily basis but??states this was not for any prolonged use. ?? Asthma (J45.909):??As needed albuterol. ?? Chronic low back pain (M54.50):??Stable ?? Hypogonadism male (E29.1):??Weekly testosterone injections ?? VTE Prophylaxis:?Home with familySubcutaneous Lovenox ?VTE Prophylaxis Assessment:??VTE Prophylaxis Ordered ? 45 minutes??spent reviewing the medical record, Receiving??signout??from ER physician, evaluating the patient, speaking with patient's family at bedside,??coordinating care for inpatient admission. Histories Allergies Allergies ?(Active and Proposed Allergies Only) penicillin? (Severity: Persistent Mild, Onset: Unknown) ? Past Medical History/Problem List Active Problems(12) Arthroscopic left shoulder procedures Arthroscopic shoulder right procedures Asthma Basal cell carcinoma Chronic low back pain Colon polyps Hypogonadism male L4-5 and L5-S1 disc protrusion Lumbar post-laminectomy syndrome JEANETTE (obstructive sleep apnea) Pneumonitis Pulmonary nodules ? Past Surgical History Back Surgery Rotator cuff repair Tracheostomy Tonsillectomy Knee replacement Basal cell carcinoma excision L Deltoid Surgery Cyst excision ? Social History Alcohol Details:??Use: Never. Employment/School Details:??Status: Disabled. Exercise Details:??Self assessment: Fair condition. ??Regular exercise: No. Home/Environment Details:??Living situation: Home/Independent. ??Lives with: Children. Nutrition/Health Details:??Diet: High Protein, Low Fat. Substance Abuse Details:??Use: Never.?? Denies use of marijuana. Tobacco Details:??Use: Never (less than 100 in lifetime). Electronic Cigarette/Vaping Details:??Electronic Cigarette Use: Never. ? Family History Father: Alzheimer's disease; Hypertension Aunt: Cancer Daughter: ADHD - Attention deficit disorder with hyperactivity ? Medications Home Medications Ondansetron (Zofran ODT 4 mg oral tablet, disintegrating)??1 tab(s) By Mouth Every 8 hours as needed as needed for nausea/vomiting Oxycodone (oxyCODONE 5 mg oral tablet)??5 Milligram 1 tablet By Mouth Every 6 hours as needed for pain PROCHLORperazine (Compazine Tablet)??5 Milligram By Mouth 4 times a day Testosterone??1 Milligram Intramuscular Every 7 days ? Inpatient Medications Medications (7) Active SCHEDULED: (4) Enoxaparin 40 mg Inj (Enoxaparin Inj) ??40 mg 0.4 mL, Subcutaneous Injection, Every 24 hours Metoclopramide 5 mg/mL Inj (2 mL) (Reglan Inj) ??5 mg, IV Push Slowly, 3 times a day before meals and bedtime NaCl 0.9% Flush 3ml (NaCL 0.9% Flush) ??3 mL, IV Push, Every 8 hours Pantoprazole 40 mg Inj (Protonix Inj) ??40 mg, IV Push Slowly, Every 12 hours CONTINUOUS: (1) Lactated Ringers (1000 mL) Cont IV 1,000 mL (Lactated Ringers 1,000 mL) ??1,000 mL, IV Infusion, 125 mL/hr PRN: (2) HYDROmorphone 0.5 mg/0.5 mL Inj Syringe (HYDROmorphone Inj) ??0.2 mg 0.2 mL, IV Push Slowly, Every 4 hours HYDROmorphone 0.5 mg/0.5 mL Inj Syringe (HYDROmorphone Inj) ??0.5 mg 0.5 mL, IV Push Slowly, Every 4 hours ? Results Recent Labs BLOOD COUNT & DIFF WBC 12.0 k/mm3 (High)?? 07/23/2024 06:22 RBC 5.34 m/mm3 ()?? 07/23/2024 06:22 Hgb 17.3 Gm/dL (High)?? 07/23/2024 06:22 Hct 48.2 % ()?? 07/23/2024 06:22 MCV 90.3 femtoliters ()?? 07/23/2024 06:22 MCH 32.4 pg ()?? 07/23/2024 06:22 MCHC 35.9 Gm/dL ()?? 07/23/2024 06:22 Platelet Count 283 k/mm3 ()?? 07/23/2024 06:22 RDW-SD 42.8 femtoliters ()?? 07/23/2024 06:22 MPV 8.7 femtoliters (Low)?? 07/23/2024 06:22 Nucleated RBC (Automated) 0.0 #/100 WBC'S ()?? 07/23/2024 06:22 Abs. NRBC 0.0 k/mm3 ()?? 07/23/2024 06:22 Abs. Neut 10.1 k/mm3 (High)?? 07/23/2024 06:22 Abs. Lymph 1.3 k/mm3 ()?? 07/23/2024 06:22 Abs. Bullock 0.5 k/mm3 ()?? 07/23/2024 06:22 Abs. Eo 0.0 k/mm3 ()?? 07/23/2024 06:22 Abs. Baso 0.0 k/mm3 ()?? 07/23/2024 06:22 Neut % 84.5 % (High)?? 07/23/2024 06:22 Lymph % 10.6 % (Low)?? 07/23/2024 06:22 Bullock % 4.2 % (Low)?? 07/23/2024 06:22 Eos % 0.0 % ()?? 07/23/2024 06:22 Baso % 0.1 % ()?? 07/23/2024 06:22 Imm Gran 0.6 % ()?? 07/23/2024 06:22 Abs. Imm Gran 0.1 k/mm3 ()?? 07/23/2024 06:22 ?? CHEM GENERAL Sodium 137 mmol/L ()?? 07/23/2024 06:22 Potassium 3.6 mmol/L ()?? 07/23/2024 06:22 Chloride 102 mmol/L ()?? 07/23/2024 06:22 Bicarbonate Level 22 mmol/L ()?? 07/23/2024 06:22 Anion Gap 13 mmol/L ()?? 07/23/2024 06:22 Glucose Level 130 mg/dL (High)?? 07/23/2024 06:22 BUN 13 mg/dL ()?? 07/23/2024 06:22 Creatinine-Blood 1.20 mg/dL ()?? 07/23/2024 06:22 Estimated GFR Creatinine 70 ML/MIN/1.73 M2 ()?? 07/23/2024 06:22 Calcium 9.2 mg/dL ()?? 07/23/2024 06:22 Protein, Total 6.9 Gm/dL ()?? 07/23/2024 06:22 Albumin 4.0 Gm/dL ()?? 07/23/2024 06:22 AG Ratio 1.4 ()?? 07/23/2024 06:22 Alkaline Phosphatase 94 units/L ()?? 07/23/2024 06:22 Lipase, Serum/Plasma 33 units/L ()?? 07/23/2024 06:22 AST (SGOT) 24 units/L ()?? 07/23/2024 06:22 ALT (SGPT) 25 units/L ()?? 07/23/2024 06:22 Bilirubin, Total 0.9 mg/dL ()?? 07/23/2024 06:22 Lactate 1.0 mmol/L ()?? 07/23/2024 06:22 ?? HEME OTHER Hold Blue Top SPECIMEN DISCARDED AFTER 4 HOURS. ()?? 07/23/2024 06:22 ?? MISC. CHEMISTRY Hold Green Top SPECIMEN DISCARDED AFTER 1 WEEK ()?? 07/23/2024 06:22 Hold Gel Top SPECIMEN DISCARDED AFTER 1 WEEK ()?? 07/23/2024 06:22 Hold Rubio Top SPECIMEN DISCARDED AFTER 1 WEEK ()?? 07/23/2024 06:22 ?? URINE OTHER Est Creatinine Clearance 73.75 mL/min ()?? 07/23/2024 06:48 ?? VIROLOGY Influenza A PCR NEGATIVE ()?? 07/23/2024 06:21 Influenza B PCR NEGATIVE ()?? 07/23/2024 06:21 RSV PCR NEGATIVE ()?? 07/23/2024 06:21 COVID-19 PCR Specimen Source NASAL ()?? 07/23/2024 06:21 COVID-19 PCR Result NEGATIVE ()?? 07/23/2024 06:21 ? Microbiology ?? COVID-19, RSV, and Flu A/B, Rapid PCR?? Completed?? Source: Nasal Body Site: Nose Collected Dt/Tm: 07/23/2024 06:21 Last Updated Dt/Tm: 07/23/2024 07:17 ? EKG study * Event Display: EKG Authored Date: * Event Display: ECG 12-Lead Authored Date: Please click on pdf link to open report * Event Display: ECG 12-Lead Authored Date: Ventricular Rate: 74 BPM Atrial Rate: 74 BPM P-R Interval: 156 ms QRS Duration: 92 ms Q-T Interval: 366 ms QTC Calculation(Bazett): 406 ms P [place]: 31 degrees R [place]: -43 degrees T [place]: 49 degrees Normal sinus rhythm Left axis deviation Abnormal ECG When compared with ECG of 17-Dec-2022 09:20, No significant change was found Confirmed by REBECCA ARCHULETA [facility] ([id number]) on 07/24/2024 8:28:02 PM [place]: REBECCA ARCHULETA,[facility] Progress note * Dinah Cano MD: PERFORM Event Display: Progress Note Hospital Authored Date: [id number] Patient: ??HAYLEY COURTNEY ? Age:??59 Years?Sex:??Male?:??1965?? Subjective Patient was seen and examined at bedside N.p.o. postmidnight waiting for EGD No recurrent nausea vomiting Left upper quadrant pain??controlled Review of Systems No fever No nausea vomiting No jaundice Left upper quadrant pain controlled Other review of system negative Objective Measurements?? Height: 183 cm (07/25/24) Weight: 105.5 kg (07/25/24) Dry Weight: 105.5 kg (07/23/24) Body Mass Index:??31.5 kg/m2??Critical (07/25/24) ? Vital Signs?? Temperature: 97.6 DegF (07/25/24 14:24:00) Temperature Route: Temporal (07/25/24 14:24:00) Pulse Rate: 68 bpm (07/25/24 14:24:00) Respiratory Rate: 17 br/min (07/25/24 14:24:00) Systolic Blood Pressure:??147 mm Hg??High (07/25/24 14:24:00) Diastolic Blood Pressure: 82 mm Hg (07/25/24 14:24:00) Blood pressure sites: Arm, left (07/25/24 14:24:00) Mean Arterial Pressure: 104 mm Hg (07/25/24 14:24:00) Pulse Pressure: 66 mm Hg (07/25/24 07:57:00) Oxygen Saturation: 97 % (07/25/24 14:24:00) Mode of Delivery (Oxygen): Room air (07/25/24 14:24:00) Early Warning Score: 2 (07/25/24 14:39:15) ? Intake/Output? 07/24 18:09 07/25 07:00 07/24 07:00 07/23 07:00 07/22 07:00 ?? 07/25 14:50 07/25 14:50 07/25 06:59 07/24 06:59 07/23 06:59 Intake ? 5720 ?0 ? 3920 ? 1800 ?0 Output ?0 ?0 ?0 ?0 ?0 Net Total ? 5720 ?0 ? 3920 ? 1800 ?0 ? Urine Count ? 12 ?2 ?7 ?3 ?0 ? Precautions No Precautions documented.? Physical Exam ?Gen; no acute respiratory distress, cooperating with exam ?HEENT; no facial asymmetry?Lungs; CATB ?Cardiac; RRR ?Abdomen; no overt abdominal distention.?? Mild left upper quadrant tenderness, no??guarding no rebound ?Extremity; no edema ?Neuro exam; alert oriented x3, CN 2-12 normal ? _ Home Medications Ondansetron (Zofran ODT 4 mg oral tablet, disintegrating)??1 tab(s) By Mouth Every 8 hours as needed as needed for nausea/vomiting Oxycodone (oxyCODONE 5 mg oral tablet)??5 Milligram 1 tablet By Mouth Every 6 hours as needed for pain PROCHLORperazine (Compazine Tablet)??5 Milligram By Mouth 4 times a day Testosterone??1 Milligram Intramuscular Every 7 days ? Inpatient Medications Medications (10) Active SCHEDULED: (5) Albuterol/Ipratropium Inhalation Lakshmi 3mL (Duoneb Inhalation Solution) ??1 vials, BAND Nebulizer, 4 times a day Enoxaparin 40 mg Inj (Enoxaparin Inj) ??40 mg 0.4 mL, Subcutaneous Injection, Every 24 hours NaCl 0.9% Flush 3ml (NaCL 0.9% Flush) ??3 mL, IV Push, Every 8 hours Pantoprazole 40 mg EC Tablet (pantoprazole 40 mg oral delayed release tablet) ??40 mg, By Mouth, Every 12 hours Polyethylene Glycol 17 Gm Powder (MiraLax Powder) ??17 Gm 1 pack/packet, By Mouth, Daily at bedtime CONTINUOUS: (2) Lactated Ringers (1000 mL) Cont IV 1,000 mL (Lactated Ringers 1,000 mL) ??1,000 mL, IV Infusion, 125 mL/hr Lactated Ringers (1000 mL) Cont IV 1,000 mL (LR 1,000 mL) ??1,000 mL, IV Infusion, 100 mL/hr PRN: (3) HYDROmorphone 0.5 mg/0.5 mL Inj Syringe (HYDROmorphone Inj) ??0.5 mg 0.5 mL, IV Push Slowly, Every 4 hours HYDROmorphone 1 mg/mL Inj Syringe (HYDROmorphone Inj) ??1 mg 1 mL, IV Push Slowly, Every 4 hours PROCHLORperazine 5mg/ml Inj (Compazine Inj) ??5 mg 1 mL, IV Push, Every 6 hours ? Results Abnormal Labs No lab data available. ? Blood Gases?? No qualifying data available. ?? Image ?CT Abd/Pelvis W/ IV Contrast Only??07/23/2024 11:05 by Cee Stovall ?Edematous appearance of the proximal pancreas with trace adjacent free fluid and edema extending to the pancreatic grove. Findings are concerning for acute pancreatitis. ?? Mild hyperemia of the duodenal mucosa with wall edema regionally can be reactive or could be seen with duodenitis. There is no formed pseudocyst or drainable collection. ?XR Chest Portable??07/23/2024 11:57 by Stephen Nguyen ?Chest x-ray??normal ?US RUQ??07/23/2024 14:23 by Vic Flmeing ?Unremarkable right upper quadrant ultrasound. No evidence of acute cholecystitis or biliary ductal dilatation. ?? Assessment/Plan Diagnoses Acute pancreatitis ??(K85.90) Vomiting ??(R11.10) 1. ??Abdominal pain ??(R10.9) 2. ??History of arthroscopic surgery of shoulder ??(Z98.890) 3. ??Asthma ??(J45.909) ?? Assessment:??This is a 59 years old gentleman with??chronic back pain, mild intermittent asthma.??Patient is hospitalized??for acute pancreatitis after??right arthroscopic shoulder surgery ?? Acute pancreatitis (K85.90) Abdominal pain (R10.9) ? Patient had acute pancreatitis, etiology unclear.??Seen by GI.?No alcohol use,??no signs of??gallstone, no hyperlipidemia. Plan Plan for EGD Resume full liquid diet Gentle IV hydration Pain control ?? Asthma (J45.909):??Pulm and asthma, no signs acute exacerbation ?? History of arthroscopic surgery of shoulder (Z98.890):??Noted ?? Vomiting (R11.10):??Resolved ?? VTE Prophylaxis:??Lovenox ?VTE Prophylaxis Assessment:??VTE Prophylaxis Ordered ?? Discharge Planning:??To be determined ?? Ongoing Medical Necessity:??Acute pancreatitis ?? Code Status:??full?Billing code; 62104 Total preparation time 15 minutes with time spent at bedside and on the unit, time spent coordinating care with management, reviewing records and diagnostics. ?? This documentation was prepared using the dragon voice recognition system. Please forgive any typographical, punctuation or contextual errors.?? * West Castro RN: PERFORM, SIGN, VERIFY Event Display: Progress Note Hospital Authored Date: Patient: HAYLEY COURTNEY Age: 59 years Sex: Male : 1965 Associated Diagnoses: None Author: West Castro RN Findings Problem Related to Alteration in Gastrointestinal : Alteration in Gastrointestinal Func/new 07/25/2024 12:00 EST Alteration in GI status Related to Constipation, Pancreatitis Goals & Outcomes, Gastrointestinal Establish a regular pattern of elimination for pt, Nutritional intake is adequate for metabolic needs, Pt will achieve normal/improved fluid balance, Pt will have a bowel movement prior to discharge, Pt will maintain adequate GI function appropriate for pt, Ptwill maintain normal elimination patterns, Pt will resume/maintain adequate hemodynamic status, Pt will tolerate age appropriate diet prior to discharge Interventions, Gastrointestinal Assess/monitor abdomen for distention, tenderness, Assess/monitor bowel pattern, bowel sounds, flatus, Assess/monitor number of bowel movements BH Goals/Interventions, Gastrointestinal Yes Gastrointestinal, Problem Start 07/23/2024 18:52 Reviewed plan with, Gastrointestinal Patient Patient Progression, Gastrointestinal Pt progressing according to plan . Narrative/Incidental Pt is AOx4, independent. Denies pain at time of assessment. Lungs CTA. Plan is for pt to have EGD, then have diet advanced. Possible discharge tomorrow. Plan ongoing. * Haven Phan RN: PERFORM, SIGN, VERIFY Event Display: Progress Note Hospital Authored Date: [id number] Patient: HAYLEY COURTNEY Age: 59 years Sex: Male : 1965 Associated Diagnoses: None Author: Haven Phan RN Findings Problem Related to Alteration in Gastrointestinal : Alteration in Gastrointestinal Func/new 07/25/2024 8:00 EST Alteration in GI status Related to Constipation, Pancreatitis Goals & Outcomes, Gastrointestinal Establish a regular pattern of elimination for pt, Nutritional intake is adequate for metabolic needs, Pt will achieve normal/improved fluid balance, Pt will have a bowel movement prior to discharge, Pt will maintain adequate GI function appropriate for pt, Ptwill maintain normal elimination patterns, Pt will resume/maintain adequate hemodynamic status, Pt will tolerate age appropriate diet prior to discharge Interventions, Gastrointestinal Assess/monitor abdomen for distention, tenderness, Assess/monitor bowel pattern, bowel sounds, flatus, Assess/monitor number of bowel movements, Assess/monitor pt for nausea, vomiting, Assess/monitor effects of re-hydration, Assess/monitor intake & output, Assessif pt tolerating diet BH Goals/Interventions, Gastrointestinal Yes Gastrointestinal, Problem Start 07/23/2024 18:52 Reviewed plan with, Gastrointestinal Patient Patient Progression, Gastrointestinal Pt progressing according to plan . Nursing Data Vital Signs : VITAL SIGNS SECTION 07/23/2024 16:49 EST Temperature 97.8 DegF Temperature Route Oral Pulse Rate 69 bpm Respiratory Rate 18 br/min Systolic Blood Pressure 147 mm Hg H Diastolic Blood Pressure 92 mm Hg H Blood pressure sites Arm, left Mean Arterial Pressure 110 mm Hg Pulse Pressure 55 mm Hg Oxygen Saturation 95 % Mode of Delivery (Oxygen) Room air . Evaluation Patient alert and oriented to person, place and time.. Is indipendent in the room and cooperative with care. iv lr INFUSING @125. prn utilized for pain. Patient NPO from [place] for EGD today. Safety measures maintained, bed in low locked position, call paredes within reach and frequent rounding done.. Note * West Castro RN: PERFORM Event Display: Discharge/Transfer Note Hospital Authored Date: [id number] Nursing Discharge Note Entered On: 07/25/2024 18:47 EST Performed On: 07/25/2024 18:47 EST by West Castro RN Nursing Discharge Note 2 Discharge Time : 07/25/2024 18:47 EST Discharge Level of Care at Discharge : Home/Long Term/Foster Care Patient Left Unit Via : Ambulatory Patient Accompanied Off Unit with : Responsible adult DC Instructions Provided & Signed by Pt : Yes Patient Understands D/C Instructions : Yes Patient Instructions Discharge Signed : Yes Did Pt have Specialty Bed or Wound Vac : No West Castro RN - 07/25/2024 18:47 EST * Jerome ARCHULETA, Dinah Jones: PERFORM Event Display: Discharge/Transfer Note Hospital Authored Date: [id number] Patient: ??HAYLEY COURTNEY ? Age:??59 Years?Sex:??Male?:??1965?? Patient Information Discharge Location: Med Surg Primary Care Physician: Danuta Bryant Admit Date/Time: 07/24/2024 18:09 Discharge Disposition Discharge Disposition: ?? Discharge Diagnosis Acute pancreatitis (K85.90) Abdominal pain (R10.9) Asthma (J45.909) History of arthroscopic surgery of shoulder (Z98.890) Vomiting (R11.10) _ Discharge Medications Acetaminophen (acetaminophen 325 mg oral capsule)??1 capsule 325 Milligram By Mouth 3 times a day as needed Pain , Mild for 5 Days Ondansetron (Zofran ODT 4 mg oral tablet, disintegrating)??1 tab(s) By Mouth Every 8 hours as needed as needed for nausea/vomiting Oxycodone (oxyCODONE 5 mg oral tablet)??5 Milligram 1 tablet By Mouth Every 6 hours as needed for pain Pantoprazole (pantoprazole 40 mg oral delayed release tablet)??40 Milligram By Mouth Daily for 90 Days PROCHLORperazine (Compazine Tablet)??5 Milligram By Mouth 4 times a day Testosterone??1 Milligram Intramuscular Every 7 days ? Medications Started Acetaminophen and pantoprazole Medications Discontinued Naprosyn Allergies Allergies ?(Active and Proposed Allergies Only) penicillin? (Severity: Persistent Mild, Onset: Unknown) ? Hospital Course ??Abdominal pain and vomiting History of Present Illness This is a 59-year-old gentleman with a past medical history of hypogonadism, chronic low back pain,basal cell carcinoma, mild intermittent asthma??who underwent??right arthroscopic??shoulder??surgery on Tuesday??with??post??anesthesia nausea and vomiting.?? Patient states that immediately after surgery he did well and was discharged to home. ??Later that evening he became extremely nauseous. ??BySat morning the patient??began vomiting and was having a lot of dry heaves.?? Zofran??was prescribed for him, however was ineffective.?? On Tuesday he was prescribed Compazine??that seemed to help a little bit better.?? Patient reports his last bowel movement was Tuesday morning prior to surgeryand denies any chronic constipation. ??He is complaining of periumbilical??discomfort??that is actually more superior to the umbilicus and does not radiate.?? He has no appetite. ??He denies sensation of feeling bloated.?? He is passing small amounts of gas.?? He has had intermittent heartburn and reflux.?? There is no other 6 exposures in the family.?? Patient denies excessive NSAID use.?? Due to the symptoms patient came to [facility]. ??He is found to be hemodynamically stable. ??Electrolytes??within normal limits,??CBC with mild leukocytosis of 12,000. ??Urinalysis??is negative. ??CT of the abdomen and pelvis??Showing edema at the proximal pancreas with a trace adjacent free fluid and edema extending to the pancreatic groove concerning for acute pancreatitis.?? There is mild hyperemia in the duodenal mucosa with with wall edema regionally considered reactive versus duodenitis.? Interestingly,??lipase is not elevated. ??On physical exam patient has right upper quadrant tenderness only without guarding or rebound.?? He was administered IV morphine and the patient reports increased symptoms after receiving this??but did report improvement in his nausea with??IV Compazine.?? W e have been asked to admit the patient for observation??continuation and management. [1] Objective Assessment and Plan Assessment:??This is a 59 years old gentleman with??chronic back pain, mild intermittent asthma.??Patient is hospitalized??for acute pancreatitis after??right arthroscopic shoulder surgery ?? Acute pancreatitis (K85.90) Abdominal pain (R10.9) ? Patient had acute pancreatitis, etiology unclear.??Seen by GI.?No alcohol use,??no signs of??gallstone, no hyperlipidemia.?Status post EGD, patient had a mild gastric polyp??and duodenitis Plan -Low-fat diet, slowly and advance as tolerated,??patient is provided With education on management of??pancreatitis -Avoid NSAID -Patient may use acetaminophen and??oxycodone for pain control ?? Asthma (J45.909):??Pulm and asthma, no signs acute exacerbation ?? History of arthroscopic surgery of shoulder (Z98.890):??Noted ?? Vomiting (R11.10):??Resolved ?? VTE Prophylaxis:??Lovenox ?VTE Prophylaxis Assessment:??VTE Prophylaxis Ordered ?? Code Status:??full? Measurements?? Height: 183 cm (07/25/24) Weight: 105.5 kg (07/25/24) Dry Weight: 105.5 kg (07/23/24) Body Mass Index:??31.5 kg/m2??Critical (07/25/24) ? Vital Signs?? Temperature: 97.7 DegF (07/25/24 16:48:00) Temperature Route: Oral (07/25/24 16:48:00) Pulse Rate: 73 bpm (07/25/24 16:48:00) Heart Rate Monitored: 68 bpm (07/25/24 15:48:00) Respiratory Rate: 20 br/min (07/25/24 16:48:00) Systolic Blood Pressure:??139 mm Hg??High (07/25/24 16:48:00) Diastolic Blood Pressure: 84 mm Hg (07/25/24 16:48:00) Blood pressure sites: Arm, left (07/25/24 16:48:00) Mean Arterial Pressure: 102 mm Hg (07/25/24 16:48:00) Pulse Pressure: 55 mm Hg (07/25/24 16:48:00) Oxygen Saturation: 100 % (07/25/24 16:48:00) Mode of Delivery (Oxygen): Room air (07/25/24 16:48:00) Early Warning Score: 2 (07/25/24 16:51:01) ? Precautions No Precautions documented.? Mobility & Ambulation Level Mobility & Ambulation Level?? No qualifying data available. ?? Therapeutic Activity Therapeutic Activities/Mobility/Balance?? No qualifying data available. ?? . Physical Exam See progress notes for details Surgical Procedures Gastroscopy (EGD) Diagnostic 07/25/2024 15:07 Pending Results Add On Lab Order ordered on 07/24/2024 Add On Lab Order ordered on 07/24/2024 Add On Lab Order ordered on 07/24/2024 Patient Education Titles WebMD Ignite Patient Education - Stomach Polyps?? WebMD Ignite Patient Education - Understanding Gastric Ulcers?? WebMD Ignite Patient Education - Pancreatitis?? WebMD Ignite Patient Education - Discharge Instructions for Acute Pancreatitis?? Follow-Up Appointments Added Follow Up ?Time Frame ?Comments Evangelist DUNNE, Danuta?2 to 3 weeks Patient Instructions ?? -Continue low-fat diet, activity as tolerated -Please avoid [id number] aspirin,??ibuprofen, Aleve, Naprosyn??due to high risk of gastric ulcer??and duodenitis -Please continue medications as prescribed, follow-up with PCP in 1???3??weeks -Please seeking medical attention immediately if you develop symptoms of nausea vomiting, abdominalpain Post Discharge Care Discharge ?07/25/24 17:20:00 EST ?Order Comment:?? Discharge Prescriptions ?ePrescribed, 07/25/24 17:20:00 EST ?Order Comment:?? Home Health Face to Face ^[email or web address] Results Discharge Labs BLOOD COUNT & DIFF WBC 8.7 k/mm3 ()?? 07/24/2024 06:13 RBC 4.50 m/mm3 (Low)?? 07/24/2024 06:13 Hgb 14.9 Gm/dL ()?? 07/24/2024 06:13 Hct 40.9 % ()?? 07/24/2024 06:13 MCV 90.9 femtoliters ()?? 07/24/2024 06:13 MCH 33.1 pg ()?? 07/24/2024 06:13 MCHC 36.4 Gm/dL ()?? 07/24/2024 06:13 Platelet Count 239 k/mm3 ()?? 07/24/2024 06:13 RDW-SD 41.9 femtoliters ()?? 07/24/2024 06:13 MPV 8.9 femtoliters (Low)?? 07/24/2024 06:13 Nucleated RBC (Automated) 0.0 #/100 WBC'S ()?? 07/24/2024 06:13 Abs. NRBC 0.0 k/mm3 ()?? 07/24/2024 06:13 Abs. Neut 7.0 k/mm3 ()?? 07/24/2024 06:13 Abs. Lymph 1.2 k/mm3 ()?? 07/24/2024 06:13 Abs. Bullock 0.4 k/mm3 ()?? 07/24/2024 06:13 Abs. Eo 0.0 k/mm3 ()?? 07/24/2024 06:13 Abs. Baso 0.0 k/mm3 ()?? 07/24/2024 06:13 Neut % 81.1 % (High)?? 07/24/2024 06:13 Lymph % 13.6 % (Low)?? 07/24/2024 06:13 Bullock % 4.7 % ()?? 07/24/2024 06:13 Eos % 0.0 % ()?? 07/24/2024 06:13 Baso % 0.1 % ()?? 07/24/2024 06:13 Imm Gran 0.5 % ()?? 07/24/2024 06:13 Abs. Imm Gran 0.0 k/mm3 ()?? 07/24/2024 06:13 ?? CHEM GENERAL Sodium 139 mmol/L ()?? 07/24/2024 06:13 Potassium 3.4 mmol/L (Low)?? 07/24/2024 06:13 Chloride 104 mmol/L ()?? 07/24/2024 06:13 Bicarbonate Level 24 mmol/L ()?? 07/24/2024 06:13 Anion Gap 11 mmol/L ()?? 07/24/2024 06:13 Glucose Level 130 mg/dL (High)?? 07/23/2024 06:22 Hemoglobin A1C (Monitoring) 4.8 % ()?? 07/24/2024 06:13 BUN 13 mg/dL ()?? 07/24/2024 06:13 Creatinine-Blood 1.10 mg/dL ()?? 07/24/2024 06:13 Estimated GFR Creatinine 78 ML/MIN/1.73 M2 ()?? 07/24/2024 06:13 Calcium 8.5 mg/dL (Low)?? 07/24/2024 06:13 Phosphorus 2.7 mg/dL ()?? 07/24/2024 06:13 Magnesium 1.7 mg/dL ()?? 07/24/2024 06:13 Protein, Total 6.9 Gm/dL ()?? 07/23/2024 06:22 Albumin 3.4 Gm/dL ()?? 07/24/2024 06:13 AG Ratio 1.4 ()?? 07/23/2024 06:22 Alkaline Phosphatase 81 units/L ()?? 07/24/2024 06:13 Lipase, Serum/Plasma 44 units/L ()?? 07/24/2024 06:13 AST (SGOT) 20 units/L ()?? 07/24/2024 06:13 ALT (SGPT) 20 units/L ()?? 07/24/2024 06:13 Bilirubin, Total 0.8 mg/dL ()?? 07/24/2024 06:13 Lactate 1.0 mmol/L ()?? 07/23/2024 06:22 ?? ENDOCRINE/TUMOR MARKER TSH 1.61 uIU/mL ()?? 07/24/2024 06:13 ? HEME OTHER Hold Blue Top SPECIMEN DISCARDED AFTER 4 HOURS. ()?? 07/23/2024 06:22 ? MISC. CHEMISTRY Hold Green Top SPECIMEN DISCARDED AFTER 1 WEEK ()?? 07/24/2024 06:13 Hold Gel Top SPECIMEN DISCARDED AFTER 1 WEEK ()?? 07/24/2024 06:13 Hold Rubio Top SPECIMEN DISCARDED AFTER 1 WEEK ()?? 07/23/2024 06:22 ? URINE OTHER Est Creatinine Clearance 80.46 mL/min ()?? 07/24/2024 07:08 ? VIROLOGY Influenza A PCR NEGATIVE ()?? 07/23/2024 06:21 Influenza B PCR NEGATIVE ()?? 07/23/2024 06:21 RSV PCR NEGATIVE ()?? 07/23/2024 06:21 COVID-19 PCR Specimen Source NASAL ()?? 07/23/2024 06:21 COVID-19 PCR Result NEGATIVE ()?? 07/23/2024 06:21 ? Image ?CT Abd/Pelvis W/ IV Contrast Only??07/23/2024 11:05 by Cee Stovall ?Edematous appearance of the proximal pancreas with trace adjacent free fluid and edema extending to the pancreatic grove. Findings are concerning for acute pancreatitis. ?? Mild hyperemia of the duodenal mucosa with wall edema regionally can be reactive or could be seen with duodenitis. There is no formed pseudocyst or drainable collection. ?XR Chest Portable??07/23/2024 11:57 by Stephen Nguyen ?Chest x-ray??normal ?US RUQ??07/23/2024 14:23 by Vic Fleming ?Unremarkable right upper quadrant ultrasound. No evidence of acute cholecystitis or biliary ductal dilatation. ?? 35 minutes spent on discharge Discharge code 17653; this discharge preparation with time spent at the bedside, coordinating care with consulting physicians, transition care as well as performing [id number] documentation/patienteducation. This documentation was prepared using the [employer] voice recognition system. Please forgive any typographical, punctuation or contextual errors. ?? [1]??Initial Evaluation Note; Yoana Green 07/23/2024 13:07 EST * Linda Cowan RN: PERFORM, MODIFY, MODIFY Event Display: Patient Education/Instruction Authored Date: [id number] Inpatient Adult Discharge Instructions. [address] [address] Name: HAYLEY COURTNEY : 1965?? Visit: 07/24/2024 18:09?? Current Date: 07/25/2024 17:25 ?? Account: [id number]?? Inpatient Adult Discharge Instructions We would like to thank you for allowing us to assist you with your healthcare needs. The following includes patient education materials and information regarding your injury/illness. Our entire staffstrives to provide an excellent experience for our patients and their families. PLEASE ENSURE YOU FOLLOW-UP PER THE INSTRUCTIONS BELOW! ?? YOUR OPINION IS IMPORTANT TO US! Please complete the survey you may receive by mail or email. Your feedback will be used to make improvements to the healthcare experiences of our patients and their families. Surveys are administered by [employer] ?? If further treatment with your primary care physician or another doctor is recommended, it is important for you to keep the appointment. Call your primary care physician or return to the Emergency Department immediately if your condition worsens, fails to improve, or new symptoms develop. If you need to find a doctor, you can call [facility] for a referral at [phone] or toll free at [phone] or log in to [email or web address].. ?? [facility], in keeping with [facility] guidance, no longer requires face masks for [...] medical provider or home test kit. ?? You can view and manage your care through the patient portal or by using a health care susy of your choosing. [employer] is a website that allows you to securely view your medical information including your hospital discharge summary, office visit summaries, medications and follow-up visits. You can also request appointments, renew medications, and request access to your medical information using a health care susy of your choosing, or just ask a question. You can enroll at [email or web address] or register during your next office visit. You have been discharged from [facility], Patient Care Unit: Med Surg??. If you have any questions regarding these instructions, including results of studies pending, afteryou leave, please call us and we will be happy to assist you 20/12. [facility] Your Care Team Attending Physician Dinah Cano MD?? Consulting Providers Dinah Cano MD?? Discharging Providers Dinah Cano MD Reason for Your Visit Abdominal pain and vomiting?? Your Diagnosis Abdominal pain History of arthroscopic surgery of shoulder Asthma Acute pancreatitis Vomiting Tests Performed Below is a partial list of the tests performed during your hospitalization. You may have had other tests and procedures not included in this list. Please discuss all test results with your provider. Albumin Level Alk Phos ALT AST Bilirubin Total BUN Calcium Level CBC w/ Differential Comprehensive Metabolic Panel COVID-19, RSV, and Flu A/B, Rapid PCR Creatinine Electrolytes HEMOGLOBIN A1C Hold Blue Top Tube HOLD GEL TUBE HOLD RUBIO TUBE HOLD GREEN TUBE Lactic Acid Level LIPASE Magnesium Level PHOSPHORUS TSH CT Abd/Pelvis W/ IV Contrast Only US RUQ XR Chest Portable ALT?? AST?? Add On Lab Order?? Albumin Level?? Alk Phos?? BUN?? Bilirubin Total?? CBC w/ Differential?? COVID-19, RSV, and Flu A/B, Rapid PCR?? CT Abd/Pelvis W/ IV Contrast Only?? Calcium Level?? Comprehensive Metabolic Panel?? Creatinine?? Electrolytes?? Gel Top Hold Tube (HOLD GEL TUBE)?? Green Top Hold Tube (HOLD GREEN TUBE)?? Hemoglobin A1C (Monitoring) (HEMOGLOBIN A1C)?? Hold Blue Top Tube?? Hold Rubio Top Tube (HOLD RUBIO TUBE)?? Lactic Acid Level?? Lipase?? Magnesium Level?? Phosphorus Level (PHOSPHORUS)?? TSH?? US RUQ?? Chest Portable (XR Chest Portable)?? Primary Care Provider Danuta Bryant? Advance Directive Health Care Proxy on File No Patient refuses to discuss Discharge Vitals Temperature: 97.7 DegF Height: 183 cm Pulse Rate: 73 bpm Weight: 105.5 kg Respiratory Rate: 20 br/min Body Mass Index:??31.5 kg/m2??Critical Systolic Blood Pressure:??139 mm Hg??High Body surface area: 2.32 Diastolic Blood Pressure: 84 mm Hg ?? Oxygen Saturation: 100 % ?? Studies Pending All studies ordered during this hospital stay have been completed unless listed below. Please discuss all pending results with your provider listed above in these instructions. ?? Add On Lab Order?? What to do next Instructions From Your Doctor ?? -Continue low-fat diet, activity as tolerated -Please avoid ksed-fxp-zceunbl aspirin,??ibuprofen, Aleve, Naprosyn??due to high risk of gastric ulcer??and duodenitis -Please continue medications as prescribed, follow-up with PCP in 1???3??weeks -Please seeking medical attention immediately if you develop symptoms of nausea vomiting, abdominalpain ?? Orders? 07/25/24 17:20:00 EST?? Prescriptions??, ??07/25/24 17:20:00 EST?? You Need to Schedule the Following Appointments Follow Up with??Danuta Bryant When:??Within 2 to 3 weeks Where: [address] [place] [address]- Discharge Medications HAYLEY COURTNEY :1965 Visit Date:07/24/2024 Medications: Please continue your medications until treatment is completed or stopped by your provider. Medications not listed below should be discontinued. Discuss any questions related to medications with your provider. What How Much When Instructions Next Dose New Acetaminophen (acetaminophen 325 mg oral capsule) 1 capsule Oral 3 times a day as needed for Pain , Mild Duration: 5 Days as directed as directed New Pantoprazole (pantoprazole 40 mg oral delayed release tablet) 40 Milligram Oral Daily Duration: 90 Days Pickup at [facility]pharm[facility] #[id number] tomorrow Unchanged Ondansetron (Zofran ODT 4 mg oral tablet, disintegrating) 1 tab(s) Oral Every 8 hours as needed for as needed for nausea/vomiting as needed as directed Unchanged Oxycodone (oxyCODONE 5 mg oral tablet) 1 tab(s) Oral Every 6 hours as needed for for pain as needed as directed Unchanged PROCHLORperazine (Compazine Tablet) 5 Milligram Oral 4 times a day as needed directed Unchanged Testosterone 1 Milligram Intramuscular Every 7 days resume schedule Pharmacy Information [id number]: [address], [place] [phone] Prescription Given During Visit Acetaminophen (acetaminophen 325 mg oral capsule) - 1 capsule = 325 mg, By Mouth, 3 times a day, # 15 capsule, 0 Refills?? Pantoprazole (pantoprazole 40 mg oral delayed release tablet) - 40 mg, By Mouth, Daily, # 90 tablet, 0 Refills, [id number] [address] [phone]?? Laboratory Results Below is a partial list of the most recent Laboratory test results done prior to this discharge. You may have had other tests and procedures not included in this list. Please discuss all test resultswith your provider. Est Creatinine Clearance - 80.46 mL/min (07/24/2024) Albumin Level (07/24/2024) ???Albumin - 3.4 Gm/dL Alk Phos (07/24/2024) ???Alkaline Phosphatase - 81 units/L ALT (07/24/2024) ???ALT (SGPT) - 20 units/L AST (07/24/2024) ???AST (SGOT) - 20 units/L Bilirubin Total (07/24/2024) ???Bilirubin, Total - 0.8 mg/dL BUN (07/24/2024) ???BUN - 13 mg/dL Calcium Level (07/24/2024) ???Calcium - 8.5 mg/dL CBC w/ Differential (07/24/2024) ???WBC - 8.7 k/mm3???RBC - 4.50 m/mm3???Hgb - 14.9 Gm/dL???Hct - 40.9 %???MCV - 90.9 femtoliters???MCH - 33.1 pg???MCHC - 36.4 Gm/dL???Platelet Count - 239 k/mm3???RDW-SD - 41.9 femtoliters???MPV - 8.9 femtoliters???Nucleated RBC (Automated) - 0.0 #/100 WBC'S???Abs. NRBC - 0.0 k/mm3???Abs. Neut - 7.0 k/mm3???Abs. Lymph - 1.2 k/mm3???Abs. Bullock - 0.4 k/mm3???Abs. Eo - 0.0 k/mm3???Abs. Baso - 0.0 k/mm3???Neut % - 81.1 %???Lymph % - 13.6 %???Bullock % - 4.7 %???Eos % - 0.0 %???Baso % - 0.1 %???Imm Gran - 0.5 %???Abs. Imm Gran - 0.0 k/mm3 Comprehensive Metabolic Panel (07/23/2024) ???Sodium - 137 mmol/L???Potassium - 3.6 mmol/L???Chloride - 102 mmol/L???Bicarbonate Level - 22 mmol/L???Anion Gap - 13 mmol/L???Glucose Level - 130 mg/dL???BUN - 13 mg/dL???Creatinine-Blood - 1.20 mg/dL???Estimated GFR Creatinine - 70 ML/MIN/1.73 M2???Calcium - 9.2 mg/dL???Protein, Total - 6.9 Gm/ dL???Albumin - 4.0 Gm/dL???AG Ratio - 1.4???Alkaline Phosphatase - 94 units/L???AST (SGOT) - 24 units/L???ALT (SGPT) - 25 units/L???Bilirubin, Total - 0.9 mg/dL COVID-19, RSV, and Flu A/B, Rapid PCR (07/23/2024) ???Influenza A PCR - NEGATIVE???Influenza B PCR - NEGATIVE???RSV PCR - NEGATIVE???COVID-19 PCR Specimen Source - NASAL???COVID-19 PCR Result - NEGATIVE Creatinine (07/24/2024) ???Creatinine-Blood - 1.10 mg/dL???Estimated GFR Creatinine - 78 ML/MIN/1.73 M2 Electrolytes (07/24/2024) ???Sodium - 139 mmol/L???Potassium - 3.4 mmol/L???Chloride - 104 mmol/L???Bicarbonate Level - 24 mmol/L???Anion Gap - 11 mmol/L HEMOGLOBIN A1C (07/24/2024) ???Hemoglobin A1C (Monitoring) - 4.8 % Hold Blue Top Tube (07/23/2024) ???Hold Blue Top - SPECIMEN DISCARDED AFTER 4 HOURS. HOLD GEL TUBE (07/24/2024) ???Hold Gel Top - SPECIMEN DISCARDED AFTER 1 WEEK HOLD RUBIO TUBE (07/23/2024) ???Hold Rubio Top - SPECIMEN DISCARDED AFTER 1 WEEK HOLD GREEN TUBE (07/24/2024) ???Hold Green Top - SPECIMEN DISCARDED AFTER 1 WEEK Lactic Acid Level (07/23/2024) ???Lactate - 1.0 mmol/L LIPASE (07/24/2024) ???Lipase, Serum/Plasma - 44 units/L Magnesium Level (07/24/2024) ???Magnesium - 1.7 mg/dL PHOSPHORUS (07/24/2024) ???Phosphorus - 2.7 mg/dL TSH (07/24/2024) ???TSH - 1.61 uIU/mL You will be contacted within 72 hours with your results. Allergies (NKA means No Known Allergies) penicillin Problems Active Problems??(7) Asthma?? Chronic low back pain?? Hypogonadism male?? L4-5 and L5-S1 disc protrusion?? Lumbar post-laminectomy syndrome?? Obese class I?? Pulmonary nodules?? Education Materials Below is the list of Educational Leaflet Providered with your Discharge Instructions. [employer] Patient Education - Stomach Polyps?? [employer] Patient Education - Understanding Gastric Ulcers?? [employer] Patient Education - Pancreatitis?? [employer] Patient Education - Discharge Instructions for Acute Pancreatitis?? Valuables and Belongings I fully understand and agree that [facility] accepts no responsibility for all my personal property including clothing, toilet articles, radios, jewelry, dentures, hearing aids, rings, money, or any other property that is in my possession or is brought to me after admission. I understand certain valuables may be placed in a hospital safe for a short period of time. I understand that the hospital is not liable for loss or damage due to accident, fire, or other natural occurrence while said property is in the safe. I accept full responsibility for any personal property that I keep with me, and will not hold the hospital responsible in case of loss or disappearance. I acknowledge that i have been encouraged to send valuables and belongings home. ?? No Valuables/Belongings: No valuables/belongings present Review of Valuable and Belonging List: With patient Date for Pt to Sign Valuables/Belongings: 07/25/24 14:24:00 ?? Valuables & Belongings ?? Clothes Electronic devices Jewelry Monetary Items Personal devices Miscellaneous Medications (Valuables) Valuables at Bedside Pants, Shirt, Shoes, Undergarments Cell phone ? Valuables Sent Home ? Valuables Sent to Security ? Valuables Sent to Locker ? Other Discharge Information ? Pulmonary Rehab Status?? Pulmonary Rehab Discharge Status?? Respiratory Rate: 20 br/min ? Common Emergency Awareness Tips IS IT A [...] are strongly encouraged to quit. Please call [facility] [employer] [facility] at [phone] or [phone] ([phone]) or log in to [email or web address] for referrals to smoking cessation programs. ?? 988 Suicide & Crisis Lifeline is available 20/12 if you or someone you know needs to find a reason to keep living. By calling 051 you'll be connected to a skilled, trained counselor at a crisis center in your area. INPATIENT DISCHARGE INSTRUCTIONS SIGNATURE PAGE SHERWINDELANOG Location:[facility] Registration Date and Time:07/24/2024 18:09 EST Primary Care Physician: Danuta Bryant, Attending Physician: Jerome ARCHULETA, Dinah Jones, I HAYLEY COURTNEY, have received the above patient education materials/instructions and have verbalized understanding. If ambulance or transport services are being used I further acknowledge being given a choice of service. ?? If you need to contact me, please call me at this number: . Patient/Maintenance Services Dispatcher Name: Patient/Maintenance Services Dispatcher Signature: Relationship to Patient: Witness Name/Signature: Date: * West Castro RN: PERFORM Event Display: Patient Education Leaflets Authored Date: [id number] Understanding Pancreatitis ?? [address] Understanding Pancreatitis If your pancreas suddenly becomes irritated or inflamed, you have acute pancreatitis. Acute pancreatitis is often very painful. Emergency medical treatment is usually needed. Chronic pancreatitis is a condition where your pancreas remains inflamed. It can lead to pain and other complications.?? Symptoms of acute pancreatitis Symptoms include: ??? Severe pain in your upper belly radiating??to your back ??? Nausea and vomiting ??? Belly swelling and tenderness ??? Fever ??? Rapid pulse ??? Shallow, fast breathing ?? Treating acute pancreatitis If you have acute pancreatitis, you may be in the hospital for a few days. For part of this time, you likely won???t be allowed to eat or drink. This lets your pancreas rest and heal. If your pancreatitis is severe, you may get nutrition and fluids through a feeding tube inserted into your belly. Medicines are given to help ease pain. ?? Causes of pancreatitis Gallstones are one of the most common causes of pancreatitis. These hard stones form in the gallbladder, an organ located near the pancreas. These two organs share a passage into the small intestine called the common bile duct. But fluid can't leave the pancreas if gallstones block this duct. The fluid backs up and causes pancreatitis. Alcohol is also a very common cause of pancreatitis. Certain medicines, injury, and infection can also cause pancreatitis. Problems with the structure of the pancreas may also be a cause. There are also genetic problems that can cause pancreatitis.? If you have chronic pancreatitis If the pancreas stays inflamed for a long time, chronic pancreatitis may result. Common symptoms include diarrhea, weight loss, and belly pain. Possible complications of chronic pancreatitis include: ??? Diabetes ??? Not absorbing enough nutrients (malnutrition) ??? Pancreatic cancer (rare) ??? Chronic diarrhea ??? Chronic belly (abdominal) pain Treatment for chronic pancreatitis includes: ??? Medicines to help the pancreas work (enzymes) and to manage pain ??? Dietary changes ??? Stop smoking ??? Treatment for gallstones ??? Don't drink alcohol. The most important thing you can do is to stay away from alcohol and smoking to help manage this disease.? Last Reviewed Date: 2023 ?? The [employer]. All rights reserved. This information is not intended as a substitute for professional medical care. Always follow your healthcare professional's instructions. ?? * West Castro RN: PERFORM Event Display: Patient Education Leaflets Authored Date: [id number] Pancreatitis ?? [id number] Pancreatitis The pancreas is an organ in the??belly (abdomen). It secretes hormones and digestive juices (enzymes) into the stomach. These help with digestion and control blood sugar levels. Pancreatitis is an inflammation of the pancreas. Often, it happens when the duct that connects the pancreas and gallbladder is blocked by a gallstone.??Heavy alcohol use is another major cause.??Less common causes can include medicines, trauma, certain medical procedures, viruses, and toxins. Smoking is also an important risk factor. Sometimes the cause of pancreatitis can't be found. Genetic testing is sometimes donein those cases, especially if there is a family history of pancreatic disease. Symptoms of pancreatitis include: ??? Gradually increasing or sudden severe pain??in the upper belly that may spread to the back. ???Nausea and vomiting. ??? Severe indigestion. ??? Racing heart. ??? Fever. If the pancreatitis becomes a long-term problem, diarrhea, chronic pain, weight loss, and poor nutrition can occur. Pancreatitis may be diagnosed by history, exam, blood tests, and sometimes imaging studies.??It mayfirst be treated in the hospital.??While in the hospital, you may get fluids and medicines. The underlying cause of the problem must also be treated to prevent further problems. If gallstones are the cause, you and your health care provider can discuss choices for treating them.??This often results in gallbladder surgery. Sometimes another test must be done to clear the blocked drainage ducts of gallstones.??If alcohol is the cause, talk with your provider about a program to help you stop drinking. Home care ??? Don't drink alcohol. ??? Rest in bed or sit up in a chair until you feel better. ??? Take medicines as prescribed. If you were given??an antibiotic for infection,??take it until it's gone, even if you feel better. Let your provider know if you vomit up your medicine. ??? To prevent dehydration, try sipping small amounts of clear liquids often.? Your provider may advise clear liquids only for 1 or 2 days. This is to rest the pancreas. ??? When you start eating again, start with small amounts. Have small, more frequent meals rather than larger meals.??Low-fat meals are best. Fruits, vegetables, and whole grains are good choices. Stay away from fried and greasy foods. A registered dietitian can help you make a meal plan that works best for you. ?? Follow-up care Follow up with your health care provider as advised. ?? When to get medical care Call your health care provider right away if: ??? Your pain continues or gets worse. ??? You have repeated vomiting. ??? You feel dizzy or weak. ??? You have a fever of 100.4?? F (38?? C) or higher, or as advised by your provider. ??? You have severe muscle cramps. ??? You have a yellowish coloringof your skin and eyes (jaundice). ?? Call 911 Call 911 if: ??? You're vomiting blood or have large amounts of blood in your stool. ??? You have aseizure. ??? You lose consciousness. ?? Last Reviewed Date: 2024 ?? The [employer]. All rights reserved. This information is not intended as a substitute for professional medical care. Always follow your healthcare professional's instructions. ?? * Matthew CARMONA, West: PERFORM Event Display: Patient Education Leaflets Authored Date: [id number] Discharge Instructions for Acute Pancreatitis ?? 70766 Discharge Instructions for Acute Pancreatitis You have been diagnosed with acute pancreatitis. The pancreas is an organ that makes digestive juices and hormones. Your pancreas is inflamed or swollen. Gallstones are a common cause of pancreatitis. These hard stones form in the gallbladder. The gallbladder shares a tube with the pancreas into the small intestine. If gallstones block this tube, fluid can???t leave the pancreas. The fluid backs up and causes redness and swelling (inflammation).??Alcohol use is another very common cause of pancreatitis. There are other causes. Make sure you understand the cause of your pancreatitis. Then you can try to stop it from happening again. Immediate home care ??? Find someone to drive you to appointments. Acute pancreatitis is a serious condition, and you should never drive if you have symptoms. ??? Stop drinking if your illness was caused by alcohol. o Ask your health care provider about alcohol abuse programs and support groups, such as Alcoholics Anonymous. o Ask your provider about prescription medicines that can help you stop drinking. o Tell your provider about the alcohol withdrawal symptoms you have when you stop drinking. This is very important. You may need close medical supervision and special medicines??when you stop drinking. This will depend on your alcohol withdrawal history.? Take your medicines exactly as directed. Don???t skip doses. ??? Eat a low-fat diet. Ask your provider for menus and other diet information. ??? Stop smoking. Smoking increases problems if you have pancreatitis. ?? Ongoing??care ??? Tell your provider about any medicines you are taking. Some medicines can cause this condition. ??? Before starting any new medicine, ask your provider if it will harm your pancreas. This includes any new bcdc-nqo-ryxojva medicines, vitamins, or herbal supplements. ??? Tell your pr ovider if you lose weight without dieting. ??? Be aware of symptoms that may mean your pancreatitishas come back. These symptoms include belly pain, nausea and vomiting, and fever. ??? Keep all follow-up appointments with your provider. Problems can often show up later. ??? If your pancreatitis was caused by gallstones, gallbladder removal will likely be advised. ??? Stay away from alcohol and smoking. They can lead to recurrent and more severe pancreatitis. ?? Follow-up Follow up with your health care provider as advised. ?? When to call your doctor Contact your health care provider or get medical care right away if you: ??? Have a fever??of?? 100.4?? F??( 38??C) or higher, or as advised by your provider. ??? Have chills. ??? Have severe pain from your upper belly to your back. ??? Have nausea and vomiting. ??? Feel dizzy or lightheaded. ??? Have yellowing of your skin or eyes (jaundice). ??? Have bruises on your belly or back. ??? Have belly swelling and tenderness. ??? Have a rapid pulse. ??? Have shallow, fast breathing. ?? Last Reviewed Date: 2024 ?? [id number] [employer]. All rights reserved. This information is not intended as a substitute for professional medical care. Always follow your healthcare professional's instructions. ?? Patient Care team information Care Team Personnel Name: Danuta Bryant Position: S PCO Associate Professional Member Role: PCP Address: [address] [place] [address]- Telecom: Care Team Related Persons Name: KATHY COURTNEY Name: ELISHA ROBIN Insurance Providers Guarantor name: TIAN Health Plan Information #: 2 Payer: [facility] Member Number: [id number] Policy Number: TIAN Group Number: TIAN Health Plan Information #: 1 Payer: [employer] Member Number: [id number] Policy Number: TIAN Group Number: [id number]
--- OUTSIDE RECORDS SUMMARY | 2024-08-14 09:20 | XMS_ITS ---
Author Name [facility] Organization Unknown History of Medication Use Medication Directions Dispensed Refills Start Date End Date Stat us oxyCODONE (ROXICODONE) 5 MG immediate release tablet Take 1 tablet (5 mg total) by mouth 4 times daily (every 6 hours) as needed for severe pain. TAKE AFTER SURGERY NEEDED FOR PAIN Max Daily Amount: 20 mg 02/17/2023 03/16/2023 active pregabalin (LYRICA) 100 MG capsule Take 1 capsule (100 mg total) by mouth 2 (two) times a day. 03/01/2023 active methocarbamol (ROBAXIN) 750 MG tablet Take 1 tablet (750 mg total) by mouth 4 (four) times a day. 02/17/2023 active zinc sulfate (ZINCATE) 220 mg capsule Take 1 capsule (220 mg total) by mouth daily. 02/17/2023 active meloxicam (MOBIC) 15 MG tablet TAKE 1 TABLET (15 MG TOTAL) BY MOUTH DAILY. 02/17/2023 03/17/2023 active Problems Problem Status Onset Date Problem Type Date of Resoluti on Source Left ankle pain, unspecified chronicity active EncounterDiagnosisAct [facility] Tibialis posterior tendinopathy active EncounterDiagnosisAct [facility] Peroneal tendon injury, initial encounter active EncounterDiagnosisAct [facility] Encounters Encounter Type Encounter Reason Primary Diagnosis Location Date Ambulatory [facility] 12/27/2023 Ambulatory Unspecified injury of muscle(s) and tendon(s) of peroneal muscle group at lower leg level, unspecified leg, initial encounter Unspecified injury of muscle(s) and tendon(s) of peroneal muscle group at lower leg level, unspecified leg, initial encounter [facility] 12/27/2023 Ambulatory Pain Pain [facility] 08/30/2023 Ambulatory Strain of other muscle(s) and tendon(s) of posterior muscle group at lower leg level, left leg, subsequent encounter Strain of other muscle(s) and tendon(s) of posterior muscle group at lower leg level, left leg, subsequent encounter [facility] 07/05/2023 Ambulatory Strain of other muscle(s) and tendon(s) of posterior muscle group at lower leg level, left leg, subsequent encounter Strain of other muscle(s) and tendon(s) of posterior muscle group at lower leg level, left leg, subsequent encounter [facility] 07/05/2023 Ambulatory Strain of other muscle(s) and tendon(s) of posterior muscle group at lower leg level, left leg, subsequent encounter Strain of other muscle(s) and tendon(s) of posterior muscle group at lower leg level, left leg, subsequent encounter [facility] 05/03/2023 Ambulatory Strain of other muscle(s) and tendon(s) of posterior muscle group at lower leg level, left leg, subsequent encounter Strain of other muscle(s) and tendon(s) of posterior muscle group at lower leg level, left leg, subsequent encounter [facility] 04/05/2023 Ambulatory Sprain of other ligament of left ankle, initial encounter Sprain of other ligament of left ankle, initial encounter [facility] 03/15/2023 Ambulatory Strain of other muscle(s) and tendon(s) of posterior muscle group at lower leg level, left leg, subsequent encounter Strain of other muscle(s) and tendon(s) of posterior muscle group at lower leg level, left leg, subsequent encounter [facility] 03/15/2023 Ambulatory Sprain of other ligament of left ankle, initial encounter Sprain of other ligament of left ankle, initial encounter [facility] 03/01/2023 Ambulatory Sprain of other ligament of left ankle, initial encounter Sprain of other ligament of left ankle, initial encounter [facility] 03/01/2023 Ambulatory Pain in left ankle and joints of left foot Pain in left ankle and joints of left foot [facility] 02/01/2023 Ambulatory Pain in left ankle and joints of left foot Pain in left ankle and joints of left foot [facility] 02/01/2023 Care Team Organization Name Specialty Phone Email Start Date End Da carmelina [facility] 02/01/2023 04/05/2023 [facility] 02/01/2023 02/01/2023 [facility] 02/01/2023
== END 2024-08-14 09:21 | disposition home or self-care (01) ==
PROVIDERS: PCP Internal Medicine; Visit Provider Hospitalist
DX: J18.9 Pneumonia, unspecified organism (principal); R91.8 Other nonspecific abnormal finding of lung field; J45.40 Moderate persistent asthma, uncomplicated; R06.09 Other forms of dyspnea; D80.8 Other immunodeficiencies with predominantly antibody defects; G47.33 Obstructive sleep apnea (adult) (pediatric)
CPT/HCPCS: 99214; G2211

== ENCOUNTER → 2024-08-14 08:49 | Outpatient (BNVA) | payer MEDICARE, MEDICAID, SELFPAY | PROVIDERS: PCP Internal Medicine; Visit Provider Hospitalist | DX: J44.9 Chronic obstructive pulmonary disease, unspecified (principal); J18.9 Pneumonia, unspecified organism; J45.40 Moderate persistent asthma, uncomplicated; R91.8 Other nonspecific abnormal finding of lung field; R06.09 Other forms of dyspnea; D80.8 Other immunodeficiencies with predominantly antibody defects; G47.33 Obstructive sleep apnea (adult) (pediatric) | CPT/HCPCS: 99212 ==

== ENCOUNTER 2024-10-08 09:38 | Outpatient (REF) | payer MEDICARE, MEDICAID, SELFPAY ==
--- OUTSIDE RECORDS SUMMARY | 2024-10-08 09:57 | XMS_ITS | Encounter Summary ---
Author Organization [facility] Address [address] [place] [address] Care Team Providers Care Molder Vacuum Name Role Phone Stef Griffin MD Primary Care Provider [phone] Encounter Details Date Type Department Care Team (Late st Contact Info) Description 02/22/2023 Scanned Document [facility] [address] [place] [address] Albert Castillo MD [address] [place] [address] Social History Tobacco Use Types Packs/Day Years Used Date Smoking Tobacco: Never Assessed Sex and Gender Information Value Date Recorded Sex Assigned at Male 01/12/2023 9:55 AM EDT Legal Sex Male 9:52 AM EDT Gender Identity Male 01/12/2023 9:55 AM EDT Sexual Orientation Other 01/12/2023 9: 55 AM EDT documented as of this encounter Plan of Treatment Not on file documented as of this encounter Visit Diagnoses Not on filedocumented in this encounter Care Teams Molder Vacuum Relationship Specialty Start Date End Date Stef Griffin MD [address] [facility] [address] [place] [address] PCP - General 02/01/23 documented as of this encounter
--- OUTSIDE RECORDS SUMMARY | 2024-10-08 09:57 | XMS_ITS | Encounter Summary ---
Author Organization [facility] Address [address] [place] [address] Care Team Providers Care Product Safety Compliance Leader Name Role Phone Stef Griffin MD Primary Care Provider [phone] Encounter Details Date Type Department Care Team (Late st Contact Info) Description 02/04/2023 Scanned Document [facility] [address] [place] [address] Albert Castillo MD [address] [place] [address] Social History Tobacco Use Types Packs/Day Years [...] on filedocumented in this encounter Care Teams Product Safety Compliance Leader Relationship Specialty Start Date End Date Stef Griffin MD [address] [facility] [address] [place] [address] PCP - General 02/01/23 documented as of this encounter
--- OUTSIDE RECORDS SUMMARY | 2024-10-08 09:57 | XMS_ITS | Encounter Summary ---
Author Organization [facility] Address [address] [place] [address] Care Team Providers Care Bulk Mail Clerk Name Role Phone Stef Griffin MD Primary Care Provider [phone] Encounter Details Date Type Department Care Team (Late st Contact Info) Description 01/18/2024 Scanned Document [facility] [address] [place] [address] Ching Estrada [address] [facility] [address] [place] [address] Social History Tobacco Use Types Packs/Day Years [...] on filedocumented in this encounter Care Teams Bulk Mail Clerk Relationship Specialty Start Date End Date Stef Griffin MD [address] [facility] [address] [place] [address] PCP - General 02/01/23 documented as of this encounter
--- OUTSIDE RECORDS SUMMARY | 2024-10-08 09:57 | XMS_ITS | Encounter Summary ---
Author Organization [facility] Address [address] [place] [address] Care Team Providers Care Activity Therapy Specialist Name Role Phone Stef Griffin MD Primary Care Provider [phone] Encounter Details Date Type Department Care Team (Late st Contact Info) Description 02/21/2023 Scanned Document [facility] [address] [place] [address] Albert Castillo MD [address] [place] [address] Social History Tobacco Use Types Packs/Day Years [...] on filedocumented in this encounter Care Teams Activity Therapy Specialist Relationship Specialty Start Date End Date Stef Griffin MD [address] [facility] [address] [place] [address] PCP - General 02/01/23 documented as of this encounter
--- OUTSIDE RECORDS SUMMARY | 2024-10-08 09:57 | XMS_ITS | Clinical Summary ---
Author Organization [facility] Address [address] [place] [address] Care Team Providers Care Softball Coach Name Role Phone Stef Griffin MD Primary Care Provider [phone] Allergies Active Allergy Reactions Criticality Noted Date Comments Penicillins Anaphylaxis High 01/12/2023 Medications Vitamin D3 (CHOLECALCIFERO L) 50 MCG (1999 UT) tabletIndicatio ns:Peroneal tendon injury, initial encounter Take 2 tablets (4,000 Units total) by mouth daily. 30 tablet 3 3 Active zinc sulfate (ZINCATE) 220 mg capsuleIndicati ons:Peroneal tendon injury, initial encounter Take 1 capsule (220 mg total) by mouth daily. 90 capsule 1 3 Active methocarbamol (ROBAXIN) 750 MG tabletIndicatio ns:Peroneal tendon injury, initial encounter Take 1 tablet (750 mg total) by mouth 4 (four) times a day. 60 tablet 1 3 Active oxyCODONE (ROXICODONE) 5 MG immediate release tabletIndicatio ns:Peroneal tendon injury, initial encounter Take 1 tablet (5 mg total) by mouth 4 times daily (every 6 hours) as needed for severe pain. TAKE AFTER SURGERY NEEDED FOR PAIN. Preoperative diagnosis peroneal tendon and deltoid ligament tears. Surgery scheduled by Dr. Castillo on 02/21/2023. Partial fill on request. Max Daily Amount: 20 mg 28 tablet 3 Active gabapentin (NEURONTIN) 300 MG capsuleIndicati ons:Peroneal tendon injury, initial encounter Take 1 capsule (300 mg total) by mouth 3 (three) times a day. 30 capsule 3 Active aspirin (MARIELA ASPIRIN) 325 MG tabletIndicatio ns:Peroneal tendon injury, initial encounter Take 1 tablet (325 mg total) by mouth 2 (two) times a day with breakfast and dinner. TAKE AFTER SURGERY TO PREVENT BLOOD CLOTS 60 tablet 3 Active pregabalin (LYRICA) 100 MG capsuleIndicati ons:Traumatic rupture of left posterior tibial tendon, subsequent encounter Take 1 capsule (100 mg total) by mouth 2 (two) times a day. 60 capsule 1 3 Active amitriptyline (ELAVIL) 25 MG tabletIndicatio ns:Left ankle pain, unspecified chronicity Take 1 tablet (25 mg total) by mouth nightly. 30 tablet 1 3 Active oxyCODONE (ROXICODONE) 5 MG immediate release tabletIndicatio ns:Traumatic rupture of left posterior tibial tendon, subsequent encounter Take 1 tablet (5 mg total) by mouth 4 times daily (every 6 hours) as needed for severe pain. TAKE AFTER SURGERY NEEDED FOR PAIN Max Daily Amount: 20 mg 28 tablet 3 Active meloxicam (MOBIC) 15 MG tabletIndicatio ns:Peroneal tendon injury, initial encounter TAKE 1 TABLET (15 MG TOTAL) BY MOUTH DAILY. 30 tablet 3 Active Active Problems No known active problems [...] (1 of 3 - 19+ 3-dose series) 03/30 Colonoscopy 2011 Pneumococcal Vaccines 50+ (1 of 1 - PCV) 2016 Zoster (Shingles) Vaccine (1 of 2) 2016 COVID-19 Vaccine (1 - 2023- season) 2024 Influenza Vaccine 12/28/2024 Insurance [facility] Care Teams Softball Coach Relationship Specialty Start Date End Date Stef Griffin MD [address] [facility] [address] [place], [place] [id number] PCP - General 02/01/23
--- OUTSIDE RECORDS SUMMARY | 2024-10-08 09:57 | XMS_ITS | Patient Health Record ---
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 Problem Lumbosacral radiculopathy (1100302) Radiculopathy, lumbosacral region (M54.17) Active confirmed Problem Body mass index 30.00 to 34.99 (005273999050716) Body mass index (BMI) 33.0-33.9, adult (Z68.33) Active confirmed Problem Body mass index 30.00 to 34.99 (061509508344439) Body mass index (BMI) 34.0-34.9, adult (Z68.34) Active confirmed Problem Body mass index 40+ - morbidly obese (178688857) Body mass index (BMI) 50-59.9 , adult (Z68.43) Active confirmed Problem Asthma (093138196) Asthma (J45.909) Active confirmed Plan Of Treatment No Information Insurance Providers Payer Name Payer Address Payer Phone Subscriber Number Group Number Insured Name Patient Relationship to Insured Coverage Start Date Coverage End Date [facility] [address] [place] [phone] [id number] John Scott Self - patient is the insured [place] [address] [facility] [place] [address] [id number] John Scott Self - patient is the insured Medical (General) History Medical History History ICD Code failed back syndrome testicular hypofunction lumbar radiculopathy asthma Surgical History Surgery Date(Month/Year) back surgery knee surgery, bilateral shoulder surgery, bilateral
[2024-10-08 13:13] LABS: Prostate Specific Antigen 4.34 ng/mL (<0.05-4.0)
[2024-10-14 19:13] LABS: Testosterone, Total 844 ng/dL (250-1100)
== END 2024-10-08 09:39 | disposition home or self-care (01) ==
LOC: HO.10HDL 09:38
PROVIDERS: Visit Provider Internal Medicine Endocrinology, Diabetes & Metabolism
DX: E29.1 Testicular hypofunction (principal); Z12.5 Encounter for screening for malignant neoplasm of prostate
CPT/HCPCS: 36415; 84153; 84402; 84403; 85014; 85018

== ENCOUNTER 2025-02-11 08:04 | Outpatient (AMB) | payer MEDICARE, MEDICAID, SELFPAY ==
--- NOTE | 2025-02-11 08:06 | MHC.OFFVIS ---
Vital Signs 02/11/25 08:08 Height 6 ft Weight 240 lb 1.334 oz BMI 32.6 BP 106/70 Blood Pressure Location Rt brachial Position Sitting Pulse 79 Pulse Source Pulse Oximeter Pulse Oximetry (%) 97 Oxygen Delivery Method Room Air Intake Visit Reasons: Hypogonadism Intake Note: Patient present today for Hypogonadism follow up. Harvester Operator Required: No Accompanied by: Self / Same As Patient Allergies Penicillins Allergy (Severe, Verified 02/11/25 08:08) Itching Medication List - Last Reconciled 02/11/25 by Michael Mix MD albuterol sulfate 90 mcg/actuation 1 puff PO Q4H PRN budesonide-formoterol 160-4.5 mcg/actuation (Symbicort) 2 puffs inhalation BID 30 days pseudoephedrine HCl ER 120 mg PO Q12H PRN roflumilast (Daliresp) 250 mcg PO DAILY 30 days syringe with needle, safety As directed injects tesosterone once a wk testosterone cypionate 100 mg (0.5 mL) IM QWEEK tiotropium bromide 2.5 mcg/actuation (Spiriva Respimat) 2 puffs inhalation DAILY 30 days HPI Comments Details: 59 YO Male with PMHx who is seen in consultation at the request of his PCP for Hypogonadism. First diagnosed with Hypogonadism 2004 with labs revealing low testosterone . Had testosterone down to 85 per pt Was started on Testosterone supplementation with and found relief. Currently using testosterone IM 100 mg wkly . Last dose was wk ago . Currentlyachieving spontaneous am erections, and unable to achieve erection when desired with Cialis . Reports low libido without testosterone . Decreased facial hair and shaving frequency. Denies any change in size or shape of testicles smaller since testosterone . Denies penile discharge or scrotal tenderness. Denies any history of mumps orchitis. Denies any head trauma. Denies history of JEANETTE. Does snore at night only occasionally. with children who were conceived spontaneously. 4 children no problem with fertility Sense of smell intact. Denies headache or visual changes, gynecomastia or galactorrhea. Denies orthostatic symptoms, weight loss. Denies change in size of hands or feet. Denies hair loss, weight gain, cold intolerance. History of DVT or PE: No No change in urine stream on testosterone Labs: Consistent with secondary hypogonadism with normal prolactin. MRI of the pituitary was normal PSA CBC Less lethargy . More energy . No increased snoring . Sleep better . Good libido Getting semaglutide on-line from company Taking testosterone IM 50 mg every 4 days on own accord and feels better No obstructive sx. The patient had elevated PSA and was asked to stop testosterone and see Urology The patient is a 59-year-old male presenting with concerns regarding testosterone therapy management due to an elevated prostate-specific antigen (PSA) level. The patient's PSA level increased to 4.34 ng/mL, prompting a recommendation to hold testosterone therapy and consult a urologist to rule out prostate cancer. The patient has been on testosterone therapy for over 20 years, and the recent PSA elevation raised concerns about potential prostate cancer unmasking. The patient reported that the urologist asked about recent sexual activity, which could affect PSA levels, and noted that the PSA level decreased upon retesting. The patient has not yet received the necessary documentation from the urologist to resume testosterone therapy. 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 Elevated prostate-specific antigen (PSA) level The patient's PSA level increased to 4.34 ng/mL, prompting a hold on testosterone therapy and a referral to a urologist to rule out prostate cancer. The patient needs to obtain documentation from the urologist confirming the PSA level and clearance to resume testosterone therapy. 2. Testosterone therapy management The patient has been on testosterone therapy for over 20 years. Due to the elevated PSA level, testosterone therapy was held. The patient is advised to follow up with the urologist and obtain necessary documentation to resume therapy safely. The patient had an opportunity to ask questions regarding treatment plan. The patient expressed understanding and agreement with the above treatment plan. Patient was informed and verbally consented to the use of an ambient scribe for clinic note documentation during this visit. Orders: Orders Testosterone, Free/Total Today E29.1 - Testicular hypofunction Hematocrit Today E29.1 - Testicular hypofunction Prostate Specific Antigen Today E29.1 - Testicular hypofunction Hemoglobin Today E29.1 - Testicular hypofunction Coding Level of Care Code Est Pt Level 3 (13267) Diagnoses Hypogonadism in male E29.1
[2025-02-11 08:08] VITALS: BP 106/70; PULSE 79; O2SAT 97; BMI 32.6
--- OUTSIDE RECORDS SUMMARY | 2025-02-11 08:11 | XMS_ITS | Encounter Summary ---
Author Organization [facility] Address [address] [place] [address] Care Team Providers Care Guest Services Officer Name Role Phone Stef Griffin MD Primary Care Provider [phone] Encounter Details Date Type Department Care Team (Late st Contact Info) Description 02/04/2023 Scanned Document [facility] [address] [place] [address] Albert Castillo MD [address] [place] [address] Social History Tobacco Use Types Packs/Day Years [...] on filedocumented in this encounter Care Teams Guest Services Officer Relationship Specialty Start Date End Date Stef Griffin MD [address] [facility] [address] [place] [address] PCP - General 02/01/23 documented as of this encounter
--- OUTSIDE RECORDS SUMMARY | 2025-02-11 08:11 | XMS_ITS | Patient Health Record ---
Author Organization [facility] Address [address] [facility] [address] [place] [address] Support Name Relationship Address Phone John Scott Guarantor Unknown [phone] Allergies Allergen (clinical drug ingredient) Drug/Non Drug Allergy documented on EMR Reaction Allergy Type Onset Date Status Penicillin Unknown Drug Allergy Active Reason For Referral No Information Medications Medication SIG (Take, Route, Frequency, Duration) Notes Start Date End Date Status Testosterone Cypionate 200 MG/ML INJECT 1 ML INTRAMUSCULAR WEEKLY 30 DAYS; Duration: 30 2021 Active Vitamin C 500 MG 1 tablet Orally Once a day Active Albuterol Sulfate HFA 108 (90 Base) MCG/ACT 1 puff as needed Inhalation every 4 hrs; Duration: 30 days Active B Complex - as directed Orally o ne daily Active ProAir HFA 108 (90 Base) MCG/ACT 1 puff as needed Inhalation every 4 hours (please dispense as proair); Duration: 30 days 02/03/2021 Activ e oxyCODONE-Acetaminophen 10-325 MG 1 tablet as needed Orally 3 times a day; Duration: 28 days 04/29/2021 Active Morphine Sulfate ER 80 MG 1 capsule Oral ly every 12 hrs; Duration: 28 days 04/29/2021 Active Social History Tobacco [...] W/U Status Risk Notes Problem Testicular hypofunction (290295117) 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 Problem Lumbosacral radiculopathy (1041157) Radiculopathy, lumbosacral region (M54.17) Active confirmed Problem Body mass index 30.00 to 34.99 (880076891315254) Body mass index (BMI) 33.0-33.9, adult (Z68.33) Active confirmed Problem Body mass index 30.00 to 34.99 (356390834015714) Body mass index (BMI) 34.0-34.9, adult (Z68.34) Active confirmed Problem Body mass index 40+ - morbidly obese (707934395) Body mass index (BMI) 50-59.9 , adult (Z68.43) Active confirmed Problem Asthma (253617156) Asthma (J45.909) Active confirmed Plan Of Treatment No Information Insurance Providers Payer Name Payer Address Payer Phone Subscriber Number Group Number Insured Name Patient Relationship to Insured Coverage Start Date Coverage End Date [facility] [address] [place] [address] [id number] John Scott Self - patient is the insured [place] [address] [place] [address] [id number] John Scott Self - patient is the insured Medical (General) History Medical History History ICD Code failed back syndrome testicular hypofunction lumbar radiculopathy asthma Surgical History Surgery Date(Month/Year) back surgery knee surgery, bilateral shoulder surgery, bilateral
--- OUTSIDE RECORDS SUMMARY | 2025-02-11 08:12 | XMS_ITS | Clinical Summary ---
Author Organization [facility] Address [address] [place] [address] Phone Care Team Providers Care Jumpbasting Canvas Baster Name Role Phone Stef Griffin MD Primary Care Provider [phone] Allergies Active Allergy Reactions Criticality Noted Date [...] Recorded Sex Assigned at Not on file Legal Sex Male 3:21 PM EDT Gender Identity Not on file Sexual Orientation Not on file Plan of Treatment Health Maintenance Due Date Last Done Comments Adult Td,Tdap Booster 1966 LIPID PANEL 1966 DEPRESSION SCREENING 1978 SMOKING Hx and SMOKELESS TOB ACCO SCREENING 1979 HEPATITIS C SCREENING 1984 HIV ONE-TIME SCREENING (18-6 5 YEARS) 1984 COLOGUARD 2011 COLONOSCOPY 2011 COLORECTAL CANCER SCREENING 2011 FIT TEST 2011 FOBT 2011 SIGMOIDOSCOPY 2011 VIRTUAL COLONOSCOPY 2011 PNEUMOCOCCAL VACCINES (50+ y ears) (1 of 1 - PCV) 2016 ZOSTER VACCINES (1 of 2) 2016 INFLUENZA VACCINE (#1) 2024 COVID-19 VACCINE (1 - 2023-2 5 season) 2025 HEPATITIS A VACCINES Aged Out No long er eligible based on patient's age to complete this topic HIB VACCINES Aged Out No longer eligi ble based on patient's age to complete this topic MENINGOCOCCAL VACCINES (ACWY) Aged Out No longer eligible based on patient's age to complete this topic MENINGOCOCCAL VACCINES (B) Aged Out N o longer eligible based on patient's age to complete this topic Medical Devices Not on file Insurance [facility] MEDICARE HMO REPLACEMENT MEDICARE PART A & B [facility] MEDICARE HMO REPLACEMENT [facility] MEDICARE PART A & B [facility] MEDICARE HMO REPLACEMENT [facility] & B [facility] MEDICARE HMO REPLACEMENT [facility] MEDICARE PART A & B [facility] MEDICARE HMO REPLACEMENT MEDICARE PART A & B [facility] MEDICARE HMO REPLACEMENT [facility] MEDICARE PART A & B Care Teams Jumpbasting Canvas Baster Relationship Specialty Start Date End Date Stef Griffin MD [address] [place] [address] PCP - General Internal Medicine 01/05/23 Additional Source Comments The information contained in this document represents components of the legal health record. It is not the complete legal health record.[facility]
--- OUTSIDE RECORDS SUMMARY | 2025-02-11 08:12 | XMS_ITS | Encounter Summary ---
Author Organization [facility] Address [address] [place] [address] Care Team Providers Care Alterations Sewer Name Role Phone Stef Griffin MD Primary Care Provider [phone] Encounter Details Date Type Department Care Team (Late st Contact Info) Description 01/18/2024 Scanned Document [facility] [address] [place] [address] Ching Estrada [address] [facility] [address] [place] [address] Social History Tobacco Use Types Packs/Day Years [...] on filedocumented in this encounter Care Teams Alterations Sewer Relationship Specialty Start Date End Date Stef Griffin MD [address] [facility] [address] [place] [address] PCP - General 02/01/23 documented as of this encounter
--- OUTSIDE RECORDS SUMMARY | 2025-02-11 08:12 | XMS_ITS ---
Author Name [facility] Organization Unknown History of Medication Use Medication Directions Dispensed Refills Start Date End Date Stat us pregabalin (LYRICA) 100 MG capsule Take 1 capsule (100 mg total) by mouth 2 (two) times a day. 03/01/2023 active meloxicam (MOBIC) 15 MG tablet TAKE 1 TABLET (15 MG TOTAL) BY MOUTH DAILY. 02/17/2023 03/17/2023 active oxyCODONE (ROXICODONE) 5 MG immediate release tablet Take 1 tablet (5 mg total) by mouth 4 times daily (every 6 hours) as needed for severe pain. TAKE AFTER SURGERY NEEDED FOR PAIN Max Daily Amount: 20 mg 02/17/2023 03/16/2023 active methocarbamol (ROBAXIN) 750 MG tablet Take 1 tablet (750 mg total) by mouth 4 (four) times a day. 02/17/2023 active zinc sulfate (ZINCATE) 220 mg capsule Take 1 capsule (220 mg total) by mouth daily. 02/17/2023 active Allergies Allergen Reaction Severity Comment Documented Date Source Statu s [place] ANAPHYLAXIS 01/12/2023 [facility] activ e Problems Problem Status Onset Date Problem Type Date of Resoluti on Source Left ankle pain, unspecified chronicity active EncounterDiagnosisAct [facility] Peroneal tendon injury, initial encounter active EncounterDiagnosisAct [facility] Tibialis posterior tendinopathy active EncounterDiagnosisAct [facility] Encounters Encounter Type Encounter Reason Primary Diagnosis Location Date Ambulatory [facility] 12/27/2023 Ambulatory Unspecified injury of muscle(s) and tendon(s) of peroneal muscle group at lower leg level, unspecified leg, initial encounter Unspecified injury of muscle(s) and tendon(s) of peroneal muscle group at lower leg level, unspecified leg, initial encounter [facility] 12/27/2023 Ambulatory Pain [facility] 08/30/2023 Ambulatory Strain of other muscle(s) and tendon(s) of posterior muscle group at lower leg level, left leg, subsequent encounter Strain of other muscle(s) and tendon(s) of posterior muscle group at lower leg level, left leg, subsequent encounter [facility] 07/05/2023 Ambulatory Strain of other muscle(s) and tendon(s) of posterior muscle group at lower leg level, left leg, subsequent encounter Strain of other muscle(s) and tendon(s) of posterior muscle group at lower leg level, left leg, subsequent encounter [facility] 07/05/2023 Ambulatory Strain of other muscle(s) and tendon(s) of posterior muscle group at lower leg level, left leg, subsequent encounter Strain of other muscle(s) and tendon(s) of posterior muscle group at lower leg level, left leg, subsequent encounter [facility] 05/03/2023 Ambulatory Strain of other muscle(s) and tendon(s) of posterior muscle group at lower leg level, left leg, subsequent encounter Strain of other muscle(s) and tendon(s) of posterior muscle group at lower leg level, left leg, subsequent encounter [facility] 04/05/2023 Ambulatory Sprain of other ligament of left ankle, initial encounter Sprain of other ligament of left ankle, initial encounter [facility] 03/15/2023 Ambulatory Strain of other muscle(s) and tendon(s) of posterior muscle group at lower leg level, left leg, subsequent encounter Strain of other muscle(s) and tendon(s) of posterior muscle group at lower leg level, left leg, subsequent encounter [facility] 03/15/2023 Ambulatory Sprain of other ligament of left ankle, initial encounter Sprain of other ligament of left ankle, initial encounter [facility] 03/01/2023 Ambulatory Sprain of other ligament of left ankle, initial encounter Sprain of other ligament of left ankle, initial encounter [facility] 03/01/2023 Ambulatory Pain in left ankle and joints of left foot Pain in left ankle and joints of left foot [facility] 02/01/2023 Ambulatory Pain in left ankle and joints of left foot Pain in left ankle and joints of left foot [facility] 02/01/2023 Care Team Organization Name Specialty Phone Email Start Date End Da carmelina [facility] 02/01/2023 08/15/2024 [employer] [facility] [employer] J[facility]ICA [facility] Primary [facility] 02/01/2023 04/05/2023 [facility] 02/01/2023 02/01/2023 [facility] Stephen Yañez Primary Care 10/04/2022 [facility] Dai, PROVIDER Primary Care 04/06/202212/28
--- OUTSIDE RECORDS SUMMARY | 2025-02-11 08:12 | XMS_ITS | Clinical Summary ---
Author Organization [facility] Address [address] [place] [address] Care Team Providers Care Communication Equipment Repairer Name Role Phone Stef Griffin MD Primary Care Provider [phone] Allergies Active Allergy Reactions Criticality Noted Date [...] Vaccine (1 of 2) 2016 Influenza Vaccine 12/28/2024 COVID-19 Vaccine (1 - season) 2025 Insurance [facility] MEDICARE Care Teams Communication Equipment Repairer Relationship Specialty Start Date End Date Stef Griffin MD [address] [facility] [address] [place], [place] [id number] PCP - General 02/01/23
--- OUTSIDE RECORDS SUMMARY | 2025-02-11 08:12 | XMS_ITS | Encounter Summary ---
Author Organization [facility] Address [address] [place] [id number] Care Team Providers Care Project Manager/Team Coach Name Role Phone Stef Griffin MD Primary Care Provider [phone] Encounter Details Date Type Department Care Team (Late st Contact Info) Description 02/22/2023 Scanned Document [facility] [address] [place] [id number] Albert Castillo MD [address] [place] [address] Social History Tobacco Use Types Packs/Day Years [...] on filedocumented in this encounter Care Teams Project Manager/Team Coach Relationship Specialty Start Date End Date Stef Griffin MD [address] [facility] [address] [place] [address] PCP - General 02/01/23 documented as of this encounter
--- OUTSIDE RECORDS SUMMARY | 2025-02-11 08:12 | XMS_ITS | Encounter Summary ---
Author Organization [facility] Address [address] [place] [id number] Care Team Providers Care Wedding Planner Name Role Phone Stef Griffin MD Primary Care Provider [phone] Encounter Details Date Type Department Care Team (Late st Contact Info) Description 02/21/2023 Scanned Document [facility] [address] [place] [address] Albert Castillo MD [address] [place] [address] Social History Tobacco Use Types Packs/Day Years [...] on filedocumented in this encounter Care Teams Wedding Planner Relationship Specialty Start Date End Date Stef Griffin MD [address] [facility] [address] [place] [address] PCP - General 02/01/23 documented as of this encounter
== END 2025-02-11 08:39 | disposition home or self-care (01) ==
LOC: HO.ENCR 08:05
PROVIDERS: PCP Internal Medicine; Visit Provider Internal Medicine Endocrinology, Diabetes & Metabolism
DX: E29.1 Testicular hypofunction (principal)
CPT/HCPCS: 99213

== ENCOUNTER → 2025-02-11 08:04 | Outpatient (BNVA) | payer MEDICARE, MEDICAID, SELFPAY | PROVIDERS: PCP Internal Medicine; Visit Provider Internal Medicine Endocrinology, Diabetes & Metabolism | DX: E29.1 Testicular hypofunction (principal) | CPT/HCPCS: 99212 ==